=== PATIENT | female | born 1995 | race Caucasian/White ===

== ENCOUNTER 2024-05-06 09:40 | Inpatient (IN) | payer OTHER ==
--- NOTE | 2024-05-06 10:12 | ED ---
Abdominal Pain HPI - General Chief Complaint: Abdominal Pain Stated Complaint: Abd pain Time Seen by Provider: 05/06/24 09:53 Source: patient, RN notes reviewed Mode of arrival: ambulatory Limitations: no limitations - History of Present Illness Initial Comments: This is a 28-year-old female presenting with sharp, constant lower abdominal pain (12/04) x 2 days. Patient states pain has been a monthly recurrence that is usually worse around the time of her period. Patient states pain began shortly after the end of her last period on 05/01/2024. Patient endorses chills, nausea and vomiting associated with the pain. Denies abnormal vaginal bleeding or discharge. Endorses receiving an IUD in June, expressing concern that there may be a correlation between the pain and IUD. Patient denies fever, chest pain, dyspnea, hematemesis, constipation, diarrhea, urinary symptoms. Denies history of ovarian cyst. MD Complaint: abdominal pain Onset/Timin -: days(s) - Related Data Home Medications Medication Instructions Recorded Confirmed No Known Home Medications 05/06/24 05/06/24 Allergies Allergy/AdvReac Type Severity Reaction Status Date / Time No Known Allergies Allergy Verified 05/06/24 13:16 Review of Systems ROS Statement: Those systems with pertinent positive or pertinent negative responses have been documented in the HPI. ROS Other: All systems not noted in ROS Statement are negative. Past Medical History Additional Past Medical History / Comment(s): IUD, History of Any Multi-Drug Resistant Organisms: None Reported Past Surgical History: Tonsillectomy Past Psychological History: No Psychological Hx Reported Smoking Status: Former smoker Past Alcohol Use History: None Reported Past Drug Use History: Marijuana General Exam Limitations: no limitations General appearance: alert, in no apparent distress Head exam: Present: atraumatic, normocephalic, normal inspection Eye exam: Present: normal appearance, PERRL, EOMI. Absent: scleral icterus, conjunctival injection, periorbital swelling ENT exam: Present: normal exam, mucous membranes moist Neck exam: Present: normal inspection. Absent: tenderness, meningismus, lymphadenopathy Respiratory exam: Present: normal lung sounds bilaterally. Absent: respiratory distress, wheezes, rales, rhonchi, stridor Cardiovascular Exam: Present: regular rate, normal rhythm, normal heart sounds. Absent: systolic murmur, diastolic murmur, rubs, gallop, clicks GI/Abdominal exam: Present: soft, tenderness (Bilateral lower abdominal te nderness without guarding or rigidity, especially on left side), normal bowel sounds. Absent: distended, guarding, rebound, rigid Extremities exam: Present: normal inspection, full ROM, normal capillary refill, other (Bilateral posterior tibialis pulse +2). Absent: tenderness, pedal edema, joint swelling, calf tenderness Back exam: Present: normal inspection Neurological exam: Present: alert, oriented X3, CN II-XII intact Psychiatric exam: Present: normal affect, normal mood Skin exam: Present: warm, dry, intact, normal color. Absent: rash Course Vital Signs 05/06/24 09:45 Temperature 97.8 F Pulse Rate 95 Respiratory 18 Rate Blood Pressure 138/90 O2 Sat by Pulse 100 Oximetry Medical Decision Making - Medical Decision Making Was pt. sent in by a medical professional or institution (Dr. PA, IMPLEMENT MECHANIC, urgent care, hospital, or longterm...) When possible be specific @ -No Did you speak to anyone other than the patient for history (EMS, parent, family, police, friend...)? What history was obtained from this source @ -No Did you review nursing and triage notes (agree or disagree)? Why? @ -I reviewed and agree with nursing and triage notes Were old charts reviewed (outside hosp., previous admission, EMS record, old EKG, old radiological studies, urgent care reports/EKG's, longterm records)? Report findings @ -No old charts were reviewed Differential Diagnosis (chest pain, altered mental status, abdominal pain women, abdominal pain men, vaginal bleeding, weakness, fever, dyspnea, syncope, headache, dizziness, GI bleed, back pain, seizure, CVA, palpatations, mental health, musculoskeletal)? @ -Differential Abdominal Pain Women: Appendicitis, Cholecystitis, diverticulosis, ischemic bowel, pancreatitis, hepatitis, UTI, gastroenteritis, AAA, incarcerated hernia, bowel obstruction, constipation, inflammatory bowel, hepatitis, peptic ulcer disease, splenic infarction, perforated viscus, vulvitis, ovarian torsion, PID, kidney stone, placenta abruption, this is not meant to be an all-inclusive list EKG interpreted by me (3pts min.). @ -Not done X-rays interpreted by me (1pt min.). @ -None done CT interpreted by me (1pt min.). @ -Abdomen/pelvic CT shows acute perforated sigmoid diverticulitis with several foci of pneumoperitoneum and small amount of free fluid in the pelvis with no evidence of abscess. U/S interpreted by me (1pt. min.). @ -None done What testing was considered but not performed or refused? (CT, X-rays, U/S, labs)? Why? @ -None What meds were considered but not given or refused? Why? @ -None Did you discuss the management of the patient with other professionals (professionals i.e. DrJaswant, PA, IMPLEMENT MECHANIC, lab, RT, psych nurse, social media marketer, fundraising sale representative, teacher, job placement officer, case specialist)? Give summary @ -Spoke to Dr. Domínguez from surgery who refused admission to surgery. Dr. Domínguez advised additional IV fluid and placing patient n.p.o. Was smoking cessation discussed for >3mins.? @ -No Was critical care preformed (if so, how long)? @ -No Were there social determinants of health that impacted care today? How? (Homelessness, low income, unemployed, alcoholism, drug addiction, transportation, low edu. Level, literacy, decrease access to med. care, fdc, rehab)? @ -No Was there de-escalation of care discussed even if they declined (Discuss DNR or withdrawal of care, Hospice)? DNR status @ -No What co-morbidities impacted this encounter? (DM, HTN, Smoking, COPD, CAD, Cancer, CVA, ARF, Chemo, Hep., AIDS, mental health diagnosis, sleep apnea, morbid obesity)? @ -None Was patient admitted / discharged? Hospital course, mention meds given and route, prescriptions, significant lab abnormalities, going to OR and other pertinent info. @ -. Lab work shows leukocytosis of 26.3 with left shift. Lactic acid of 3.0. UA showed concentrated urine with blood. Abdomen/pelvic CT shows acute perforated sigmoid diverticulitis with several foci of pneumoperitoneum and small amount of free fluid in the pelvis with no evidence of abscess. Patient initially given IV Toradol, Zofran and Dilaudid as well as normal saline. IV Zosyn given after discovery of perforation with additional fluid and patient placed on n.p.o. Spoke to Dr. Domínguez from surgery who refused admission to surgery. Undiagnosed new problem with uncertain prognosis? @ -Sigmoid diverticulitis with perforation Drug Therapy requiring intensive monitoring for toxicity (Heparin, Nitro, Insulin, Cardizem)? @ -No Were any procedures done? @ -No Diagnosis/symptom? @ -Sigmoid diverticulitis with perforation Acute, or Chronic, or Acute on Chronic? @ -Acute Uncomplicated (without systemic symptoms) or Complicated (systemic symptoms)? @ -Complicated Side effects of treatment? @ -No Exacerbation, Progression, or Severe Exacerbation? @ -No Poses a threat to life or bodily function? How? (Chest pain, [place], [place], pneumonia, PE, COPD, DKA, ARF, appy, cholecystitis, CVA, Diverticulitis, Homicidal, Suicidal, threat to staff... and all critical care pts) @ -Diverticulitis with perforation, potential for sepsis - Lab Data Result diagrams: 05/06/24 10:38 05/06/24 10:38 Lab Results 05/06/24 05/06/24 05/06/24 Range/Units 10:38 10:38 10:38 WBC 26.3 H (3.8-10.6) k/uL RBC 4.71 (3.80-5.40) m/uL Hgb 13.5 (11.4-16.0) gm/dL Hct 40.0 (34.0-46.0) % MCV 85.1 (80.0-100.0) fL MCH 28.7 (25.0-35.0) pg MCHC 33.7 (31.0-37.0) g/dL RDW 12.6 (11.5-15.5) % Plt Count 407 (150-450) k/uL MPV 6.8 Neutrophils % 89 % Lymphocytes % 7 % Monocytes % 3 % Eosinophils % 0 % Basophils % 0 % Neutrophils # 23.4 H (1.3-7.7) k/uL Lymphocytes # 1.9 (1.0-4.8) k/uL Monocytes # 0.7 (0-1.0) k/uL Eosinophils # 0.0 (0-0.7) k/uL Basophils # 0.0 (0-0.2) k/uL Sodium 137 (137-145) mmol/L Potassium 3.8 (3.5-5.1) mmol/L Chloride 105 (98-107) mmol/L Carbon Dioxide 19 L (22-30) mmol/L Anion Gap 13 mmol/L BUN 8 (7-17) mg/dL Creatinine 0.74 (0.52-1.04) mg/dL Est GFR (CKD-EPI)AfAm >90 (>60 ml/min/1.73 sqM) Est GFR (CKD-EPI)NonAf >90 (>60 ml/min/1.73 sqM) Glucose 122 H (74-99) mg/dL Lactic Ac Sepsis Rflx Plasma Lactic Acid Mal 3.0 H* (0.7-2.0) mmol/L Calcium 9.4 (8.4-10.2) mg/dL Total Bilirubin 1.2 (0.2-1.3) mg/dL AST 18 (14-36) U/L ALT 19 (4-34) U/L Alkaline Phosphatase 89 (38-126) U/L Total Protein 7.9 (6.3-8.2) g/dL Albumin 4.7 (3.5-5.0) g/dL Amylase 36 (30-110) U/L Lipase 30 (23-300) U/L Urine Color Urine Appearance (Clear) Urine pH (5.0-8.0) Ur Specific [place] (1.001-1.035) Urine Protein (Negative) Urine Glucose (UA) (Negative) Urine Ketones (Negative) Urine Blood (Negative) Urine Nitrite (Negative) Urine Bilirubin (Negative) Urine Urobilinogen (<2.0) mg/dL Ur Leukocyte Esterase (Negative) Urine RBC (0-5) /hpf Urine WBC (0-5) /hpf Ur Squamous Epith Cells (0-4) /hpf Hyaline Casts (0-2) /lpf Urine Mucus (None) /hpf Urine HCG, Qual (Not Detectd) 05/06/24 05/06/24 05/06/24 Range/Units 10:56 10:56 11:06 WBC (3.8-10.6) k/uL RBC (3.80-5.40) m/uL Hgb (11.4-16.0) gm/dL Hct (34.0-46.0) % MCV (80.0-100.0) fL MCH (25.0-35.0) pg MCHC (31.0-37.0) g/dL RDW (11.5-15.5) % Plt Count (150-450) k/uL MPV Neutrophils % % Lymphocytes % % Monocytes % % Eosinophils % % Basophils % % Neutrophils # (1.3-7.7) k/uL Lymphocytes # (1.0-4.8) k/uL Monocytes # (0-1.0) k/uL Eosinophils # (0-0.7) k/uL Basophils # (0-0.2) k/uL Sodium (137-145) mmol/L Potassium (3.5-5.1) mmol/L Chloride (98-107) mmol/L Carbon Dioxide (22-30) mmol/L Anion Gap mmol/L BUN (7-17) mg/dL Creatinine (0.52-1.04) mg/dL Est GFR (CKD-EPI)AfAm (>60 ml/min/1.73 sqM) Est GFR (CKD-EPI)NonAf (>60 ml/min/1.73 sqM) Glucose (74-99) mg/dL Lactic Ac Sepsis Rflx Y Plasma Lactic Acid Mal (0.7-2.0) mmol/L Calcium (8.4-10.2) mg/dL Total Bilirubin (0.2-1.3) mg/dL AST (14-36) U/L ALT (4-34) U/L Alkaline Phosphatase (38-126) U/L Total Protein (6.3-8.2) g/dL Albumin (3.5-5.0) g/dL Amylase (30-110) U/L Lipase (23-300) U/L Urine Color Yellow Urine Appearance Cloudy H (Clear) Urine pH 6.0 (5.0-8.0) Ur Specific [place] 1.039 H (1.001-1.035) Urine Protein 1+ H (Negative) Urine Glucose (UA) Negative (Negative) Urine Ketones 2+ H (Negative) Urine Blood Moderate H (Negative) Urine Nitrite Negative (Negative) Urine Bilirubin Negative (Negative) Urine Urobilinogen <2.0 (<2.0) mg/dL Ur Leukocyte Esterase Negative (Negative) Urine RBC 28 H (0-5) /hpf Urine WBC 3 (0-5) /hpf Ur Squamous Epith Cells 1 (0-4) /hpf Hyaline Casts 5 H (0-2) /lpf Urine Mucus Many H (None) /hpf Urine HCG, Qual Not Detected (Not Detectd) Disposition Clinical Impression: Perforation of sigmoid colon due to diverticulitis Disposition: ADMITTED IP TO THIS [facility] Condition: Stable Is patient prescribed a controlled substance at d/c from ED?: No Referrals: Nonstaff,Physician [Primary Care Provider] - 1-2 days Time of Disposition: 13:10 Decision Date: 05/06/24 Decision Time: 13:10
[2024-05-06 10:43] LABS: Basophils % (A) 0 %; Eosinophils % (A) 0 %; HGB 13.5 gm/dL (11.4-16.0); Lymphocytes # (A) 1.9 k/uL (1.0-4.8); Lymphocytes % (A) 7 %; MCH 28.7 pg (25.0-35.0); MCHC 33.7 g/dL (31.0-37.0); MCV 85.1 fL (80.0-100.0); Mean Platelet Volume 6.8; Monocytes # (A) 0.7 k/uL (0-1.0); Monocytes % (A) 3 %; Neutrophils # (A) 23.4 k/uL (1.3-7.7); Neutrophils % (A) 89 %; Platelet Count 407 k/uL (150-450); RBC 4.71 m/uL (3.80-5.40); RDW 12.6 % (11.5-15.5); WBC 26.3 k/uL (3.8-10.6)
[2024-05-06 10:53] LABS: ALT 19 U/L (4-34); AST 18 U/L (14-36); African American GFR (CKD) >90 (>60 ml/min/1.73 sqM); Albumin 4.7 g/dL (3.5-5.0); Alkaline Phosphatase 89 U/L (38-126); Amylase 36 U/L (30-110); Anion Gap 13 mmol/L; Blood Urea Nitrogen 8 mg/dL (7-17); Calcium 9.4 mg/dL (8.4-10.2); Carbon Dioxide 19 mmol/L (22-30); Chloride 105 mmol/L (98-107); Glucose 122 mg/dL (74-99); Lipase 30 U/L (23-300); Non-African American GFR(CKD) >90 (>60 ml/min/1.73 sqM); Potassium 3.8 mmol/L (3.5-5.1); Sodium 137 mmol/L (137-145); Total Bilirubin 1.2 mg/dL (0.2-1.3); Total Protein 7.9 g/dL (6.3-8.2)
[2024-05-06 11:21] LABS: Appearance,Urine Cloudy (Clear); Bilirubin,Urine Negative (Negative); Blood,Urine Moderate (Negative); Color,Urine Yellow; Glucose,Urine (UA) Negative (Negative); Hyaline Casts,Urine 5 /lpf (0-2); Ketones,Urine 2+ (Negative); Leukocyte Esterase,Urine Negative (Negative); Mucus,Urine Many /hpf; Nitrite,Urine Negative (Negative); Protein,Urine 1+ (Negative); RBC,Urine 28 /hpf (0-5); Specific Gravity,Urine 1.039 (1.001-1.035); Squamous Epithelial Cell,Urine 1 /hpf (0-4); Urobilinogen,Urine <2.0 mg/dL (<2.0); WBC,Urine 3 /hpf (0-5)
[2024-05-06] MEDS: KETOROLAC 15 MG/ML 1 ML VIAL IVP STA (11:35)
[2024-05-06] MEDS: ONDANSETRON 4 MG/2 ML VIAL IVP STA (11:36)
[2024-05-06] MEDS: HYDROmorphone 0.5 MG/0.5 ML SYRINGE IVP STA (11:36)
[2024-05-06] MEDS: SODIUM CHLORIDE 0.9% 1,000 ML IV STA ×2 (11:40→13:31)
--- NOTE | 2024-05-06 12:24 | CT ---
EXAMINATION TYPE: CT abdomen pelvis w con CT DLP: 1612.2 mGycm, Automated exposure control for dose reduction was used. DATE OF EXAM: 05/06/2024 12:09 PM COMPARISON: None CLINICAL INDICATION:Female, 28 years old with history of Lower abdominal pain, lactic acidosis; Lower abdominal pain, lactic acidosis TECHNIQUE: Standard CT of the abdomen and pelvis following the administration of 100 cc of Isovue 3 00 IV contrast material. Coronal and sagittal reformats were performed. FINDINGS: LOWER CHEST: Unremarkable ABDOMEN LIVER: Focal fatty infiltration adjacent to the falciform ligament in segment IVb GALLBLADDER AND BILE DUCTS: Unremarkable. PANCREAS: Unremarkable. SPLEEN: Unremarkable. ADRENAL GLANDS: Unremarkable. KIDNEYS AND URETERS: No evidence of hydronephrosis or renal calculus. The kidneys enhance symmetrical ly. Contrast is demonstrated within both collecting systems on the delayed phase. PELVIS BLADDER: Under distended, limiting evaluation. REPRODUCTIVE: IUD is present within the uterus. ABDOMEN & PELVIS STOMACH AND BOWEL: Stomach and duodenum are unremarkable. Sigmoid diverticula with some wall thickeni ng and surrounding inflammatory changes. No definitive organized fluid collection. No evidence of bow el obstruction. The appendix is within normal limits. PERITONEUM: Small amount of free fluid within the pelvis. Few foci of pneumoperitoneum identified. VASCULATURE: No evidence of aortic aneurysm. MUSCULOSKELETAL: No acute osseous abnormalities. Mild degenerative disc disease L5-S1. LYMPH NODES: No evidence for lymphadenopathy. SOFT TISSUE/ABDOMINAL WALL: Unremarkable IMPRESSION: Findings of acute perforated sigmoid diverticulitis with few foci of pneumoperitoneum. Small amount o f free fluid in the pelvis without definitive evidence for abscess. Findings called to and discussed with MARIAM Curtis at 12:21 PM on 05/06/2024. [facility], , 05/06/2024 12:21 PM
[2024-05-06] MEDS ORDERED: NALOXONE 0.4 MG/ML 1 ML VIAL IV PRN (12:40)
[2024-05-06] MEDS: PIPERACILLIN-TAZOBACTAM 3.375 GM in SODIUM CHLORIDE 0.9% 100 ML IVPB STA (13:31)
[2024-05-06] MEDS: SODIUM CHLORIDE 0.9% 1,000 ML IV SCH (13:31)
--- NOTE | 2024-05-06 13:35 | P.GSCN ---
History of Present Illness Consult date: 05/06/24 History of present illness: CHIEF COMPLAINT: Abdominal pain HISTORY OF PRESENT ILLNESS: This is a 28-year-old female presented to the hospital with complaints of left lower quadrant abdominal pain x 2 days. Patient reports that the pain came on suddenly yesterday. She had to leave work early. She was having nausea and chills. She did report having some diarrhea. Denies any blood in her stools. She initially thought that the pain was related to menstrual cramps. Patient reports that she does get have abdominal pain across the lower abdomen with cramping with her menstrual cycle. Patient reports menstrual cycle ended yesterday. Patient reports that she has never had a colonoscopy. She denies any prior history of diverticulosis. She does have a sister who had diverticulitis and required bowel resection and colostomy. Patient also reports that she thought her abdominal discomfort might be related to an IUD that she had placed in June. CAT scan abdomen pelvis had reported evidence of perforated sigmoid diverticulitis with few foci of pneumoperitoneum. Patient's white count elevated at 26. Patient denies any prior abdominal surgeries. Denies any cardiac history. PAST MEDICAL HISTORY: See below PAST SURGICAL HISTORY: See below MEDICATIONS: See below ALLERGIES: See below SOCIAL HISTORY: No illicit drug use. REVIEW OF SYSTEMS: CONSTITUTIONAL: Denies fever or chills. HEENT: Denies blurred vision, vision changes, or eye pain. Denies hemoptysis CARDIOVASCULAR: Denies chest pain or pressure. RESPIRATORY: No shortness of breath. GASTROINTESTINAL: See HPI for pertinent findings HEMATOLOGIC: Denies bleeding disorders. GENITOURINARY: Denies any blood in urine or increased urinary frequency. SKIN: Denies pruitis. Denies rash. PHYSICAL EXAM: VITAL SIGNS: Reviewed GENERAL: Well-developed in no acute distress. HEENT: No sclera icterus. Extraocular movements grossly intact. Moist buccal mucosa. Head is atraumatic, normocephalic. No nasal drainage. ABDOMEN: Soft. Nondistended. Tenderness to palpation in the left lower quadrant. No guarding. No rebound tenderness. NEUROLOGIC: Alert and oriented. Cranial nerves II through XII grossly intact. LABORATORY DATA: WBC 26.3 Hgb 13.5 platelets 407 Sodium 137 potassium 3.8 creatinine 0.74 Lactic acid elevated 3.0 IMAGING: CT scan abdomen pelvis findings of acute perforated sigmoid diverticulitis with few foci of pneumoperitoneum. Small amount of free fluid in the pelvis without definitive evidence for abscess. ASSESSMENT: 1. Acute sigmoid diverticulitis with microperforation PLAN: -Continue IV antibiotics -Keep patient n.p.o. -Continue IV fluids -Continue supportive care -Repeat CBC in a.m. -Continue to monitor Physician Sliver Lap Tender note has been reviewed by physician. Signing provider agrees with the documented findings, assessment, and plan of care. Attestation Patient seen and examined at bedside on 05/06/2024 in the emergency department in the [facility]. Presented with chief complaint of abdominal pain. Found to have acute sigmoid diverticulitis with microperforation. At this point, she is not showing any signs of peritonitis. Abdominal pain is well-controlled. Continue IV antibiotics. Keep NPO. Continue IV fluids. Case was discussed with the patient in depth. Still a possibility to require surgical intervention, however nonoperative intervention with antibiotics and bowel rest is appropriate at this time. We will continue to follow and make recommendations based on patient's clinical progress. Yosi Domínguez DO Past Medical History Additional Past Medical History / Comment(s): IUD, History of Any Multi-Drug Resistant Organisms: None Reported Past Surgical History: Tonsillectomy Past Psychological History: No Psychological Hx Reported Smoking Status: Former smoker Past Alcohol Use History: None Reported Past Drug Use History: Marijuana Medications and Allergies Home Medications Medication Instructions Recorded Confirmed Type No Known Home Medications 05/06/24 05/06/24 History Allergies Allergy/AdvReac Type Severity Reaction Status Date / Time No Known Allergies Allergy Verified 05/06/24 13:16 Surgical - Exam Osteopathic Statement: *. No significant issues noted on an osteopathic s tructural exam other than those noted in the History and Physical/Consult. Vital Signs Temp Pulse Resp BP Pulse Ox 97.8 F 95 18 138/90 100 05/06/24 09:45 05/06/24 09:45 05/06/24 09:45 05/06/24 09:45 05/06/24 09:45 Results - Labs 05/07/24 03:32 05/07/24 03:32 Abnormal Lab Results - Last 24 Hours (Table) 05/06/24 05/06/24 05/06/24 Range/Units 10:38 10:38 10:38 WBC 26.3 H (3.8-10.6) k/uL Neutrophils # 23.4 H (1.3-7.7) k/uL Carbon Dioxide 19 L (22-30) mmol/L Glucose 122 H (74-99) mg/dL Plasma Lactic Acid Mal 3.0 H* (0.7-2.0) mmol/L Urine Appearance (Clear) Ur Specific [place] (1.001-1.035) Urine Protein (Negative) Urine Ketones (Negative) Urine Blood (Negative) Urine RBC (0-5) /hpf Hyaline Casts (0-2) /lpf Urine Mucus (None) /hpf 05/06/24 Range/Units 10:56 WBC (3.8-10.6) k/uL Neutrophils # (1.3-7.7) k/uL Carbon Dioxide (22-30) mmol/L Glucose (74-99) mg/dL Plasma Lactic Acid Mal (0.7-2.0) mmol/L Urine Appearance Cloudy H (Clear) Ur Specific [place] 1.039 H (1.001-1.035) Urine Protein 1+ H (Negative) Urine Ketones 2+ H (Negative) Urine Blood Moderate H (Negative) Urine RBC 28 H (0-5) /hpf Hyaline Casts 5 H (0-2) /lpf Urine Mucus Many H (None) /hpf Diabetes panel 05/06/24 Range/Units 10:38 Sodium 137 (137-145) mmol/L Potassium 3.8 (3.5-5.1) mmol/L Chloride 105 (98-107) mmol/L Carbon Dioxide 19 L (22-30) mmol/L BUN 8 (7-17) mg/dL Creatinine 0.74 (0.52-1.04) mg/dL Glucose 122 H (74-99) mg/dL Calcium 9.4 (8.4-10.2) mg/dL AST 18 (14-36) U/L ALT 19 (4-34) U/L Alkaline Phosphatase 89 (38-126) U/L Total Protein 7.9 (6.3-8.2) g/dL Albumin 4.7 (3.5-5.0) g/dL Calcium panel 05/06/24 Range/Units 10:38 Calcium 9.4 (8.4-10.2) mg/dL Albumin 4.7 (3.5-5.0) g/dL Pituitary panel 05/06/24 Range/Units 10:38 Sodium 137 (137-145) mmol/L Potassium 3.8 (3.5-5.1) mmol/L Chloride 105 (98-107) mmol/L Carbon Dioxide 19 L (22-30) mmol/L BUN 8 (7-17) mg/dL Creatinine 0.74 (0.52-1.04) mg/dL Glucose 122 H (74-99) mg/dL Calcium 9.4 (8.4-10.2) mg/dL Adrenal panel 05/06/24 Range/Units 10:38 Sodium 137 (137-145) mmol/L Potassium 3.8 (3.5-5.1) mmol/L Chloride 105 (98-107) mmol/L Carbon Dioxide 19 L (22-30) mmol/L BUN 8 (7-17) mg/dL Creatinine 0.74 (0.52-1.04) mg/dL Glucose 122 H (74-99) mg/dL Calcium 9.4 (8.4-10.2) mg/dL Total Bilirubin 1.2 (0.2-1.3) mg/dL AST 18 (14-36) U/L ALT 19 (4-34) U/L Alkaline Phosphatase 89 (38-126) U/L Total Protein 7.9 (6.3-8.2) g/dL Albumin 4.7 (3.5-5.0) g/dL
--- NOTE | 2024-05-06 14:13 | P.HPIM ---
History of Present Illness Patient pleasant 28-year-old female came in with complaints of right as well as left lower quadrant abdominal pain for 2 days which is severe sharp in nature. Patient denied any nausea vomiting fever chills had leukocytosis of 26,300, patient had a CT of the abdomen showed severe diverticulitis with microperforations and free fluid in the abdomen without any clear evidence of peritonitis. Patient's pain is cramping in nature significantly improved after pain medications General Surgery was consulted and patient is admitted with Zosyn. REVIEW OF SYSTEMS: All other systems are negative except those mentioned in the HPI PHYSICAL EXAMINATION: GENERAL: The patient is alert and oriented x3, not in any acute distress. Well developed, well nourished. HEENT: Pupils are round and equally reacting to light. EOMI. No scleral icterus. No conjunctival pallor. Normocephalic, atraumatic. No pharyngeal erythema. No thyromegaly. CARDIOVASCULAR: S1 and S2 present. No murmurs, rubs, or gallops. PULMONARY: Chest is clear to auscultation, no wheezing or crackles. ABDOMEN: Soft, mild to moderate tenderness in bilateral lower abdominal quadrants nondistended, normoactive bowel sounds. No palpable organomegaly. MUSCULOSKELETAL: No joint swelling or deformity. EXTREMITIES: No cyanosis, clubbing, or pedal edema. NEUROLOGICAL: Gross neurological examination did not reveal any focal deficits. SKIN: No rashes. Assessment and plan -Diverticulitis with microperforations General Surgery will evaluate the patient patient will continue on IV fluids Zosyn close monitoring for any increase in abdominal pain. Patient will remain n.p.o. -Leukocytosis due to assessment #1 DVT prophylaxis: Lovenox Past Medical History Additional Past Medical History / Comment(s): IUD, History of Any Multi-Drug Resistant Organisms: None Reported Past Surgical History: Tonsillectomy Past Psychological History: No Psychological Hx Reported Smoking Status: Former smoker Past Alcohol Use History: None Reported Past Drug Use History: Marijuana Medications and Allergies Home Medications Medication Instructions Recorded Confirmed Type No Known Home Medications 05/06/24 05/06/24 History Allergies Allergy/AdvReac Type Severity Reaction Status Date / Time No Known Allergies Allergy Verified 05/06/24 13:16 Physical Exam Vitals: Vital Signs Temp Pulse Resp BP Pulse Ox 05/06/24 09:45 97.8 F 95 18 138/90 100 Intake and Output 05/05/24 05/06/24 05/06/24 22:59 06:59 14:59 Other: Weight 104.326 kg Results CBC & Chem 7: 05/06/24 10:38 05/06/24 10:38 Labs: Abnormal Lab Results - Last 24 Hours (Table) 05/06/24 05/06/24 05/06/24 Range/Units 10:38 10:38 10:38 WBC 26.3 H (3.8-10.6) k/uL Neutrophils # 23.4 H (1.3-7.7) k/uL Carbon Dioxide 19 L (22-30) mmol/L Glucose 122 H (74-99) mg/dL Plasma Lactic Acid Mal 3.0 H* (0.7-2.0) mmol/L Urine Appearance (Clear) Ur Specific [place] (1.001-1.035) Urine Protein (Negative) Urine Ketones (Negative) Urine Blood (Negative) Urine RBC (0-5) /hpf Hyaline Casts (0-2) /lpf Urine Mucus (None) /hpf 05/06/24 Range/Units 10:56 WBC (3.8-10.6) k/uL Neutrophils # (1.3-7.7) k/uL Carbon Dioxide (22-30) mmol/L Glucose (74-99) mg/dL Plasma Lactic Acid Mal (0.7-2.0) mmol/L Urine Appearance Cloudy H (Clear) Ur Specific [place] 1.039 H (1.001-1.035) Urine Protein 1+ H (Negative) Urine Ketones 2+ H (Negative) Urine Blood Moderate H (Negative) Urine RBC 28 H (0-5) /hpf Hyaline Casts 5 H (0-2) /lpf Urine Mucus Many H (None) /hpf
[2024-05-06] MEDS: HYDROmorphone 0.5 MG/0.5 ML SYRINGE IVP PRN (16:21)
[2024-05-06] MEDS: ONDANSETRON 4 MG/2 ML VIAL IVP PRN (16:21)
[2024-05-06] MEDS: KETOROLAC 15 MG/ML 1 ML VIAL IVP SCH (19:16)
[2024-05-06] MEDS: PIPERACILLIN-TAZOBACTAM 3.375 GM in SODIUM CHLORIDE 0.9% 100 ML IVPB SCH (19:41)
[2024-05-06] MEDS: FAMOTIDINE 20 MG TAB PO SCH (22:15)
[2024-05-06] MEDS: ACETAMINOPHEN SUPPOSITORY 650 MG SUPP RECTAL PRN (23:36)
[2024-05-07 03:44] LABS: Basophils % (A) 0 %; Eosinophils % (A) 0 %; HCT 34.7 % (34.0-46.0); HGB 11.6 gm/dL (11.4-16.0); Lymphocytes # (A) 0.8 k/uL (1.0-4.8); Lymphocytes % (A) 4 %; MCH 29.1 pg (25.0-35.0); MCHC 33.4 g/dL (31.0-37.0); Mean Platelet Volume 7.1; Monocytes # (A) 0.7 k/uL (0-1.0); Monocytes % (A) 3 %; Neutrophils # (A) 18.4 k/uL (1.3-7.7); Neutrophils % (A) 92 %; Platelet Count 254 k/uL (150-450); RBC 3.99 m/uL (3.80-5.40); RDW 12.7 % (11.5-15.5); WBC 20.1 k/uL (3.8-10.6)
[2024-05-07 04:02] LABS: African American GFR (CKD) >90 (>60 ml/min/1.73 sqM); Anion Gap 6 mmol/L; Blood Urea Nitrogen 8 mg/dL (7-17); Carbon Dioxide 18 mmol/L (22-30); Chloride 113 mmol/L (98-107); Glucose 109 mg/dL (74-99); Magnesium 1.7 mg/dL (1.6-2.3); Non-African American GFR(CKD) >90 (>60 ml/min/1.73 sqM); Potassium 3.5 mmol/L (3.5-5.1); Sodium 137 mmol/L (137-145)
[2024-05-07] MEDS: ENOXAPARIN 40 MG/0.4 ML SYRINGE SQ SCH (08:00)
--- NOTE | 2024-05-07 11:16 | P.PN ---
Subjective Progress Note Date: 05/07/24 SURGICAL PROGRESS NOTE CHIEF COMPLAINT: Abdominal pain HISTORY OF PRESENT ILLNESS: Patient mated with diverticulitis with microperforation. She continues to have left lower quadrant abdominal pain. She does report an increase in pain when he gets close to pain medications being due. She does report the pain is moving across the lower abdomen. She does have pain with movement. She is rating her pain about a 8 out of 10. She is having fevers. Tmax 102.5. She has been mildly tachycardic. WBC is down from 26.3-20 Hgb 11.6 lactic acid 1.1 PHYSICAL EXAM: VITAL SIGNS: Reviewed. GENERAL: Well-developed in no acute distress. ABDOMEN: Soft. Nondistended. Tenderness palpation left lower quadrant and across the lower abdomen. No guarding. No significant tenderness with percussion of abdomen. No signs of peritonitis NEUROLOGIC: Alert and oriented. Cranial nerves II through XII grossly intact. ASSESSMENT: 1. Acute sigmoid diverticulitis with microperforation PLAN: -Continue to monitor closely. Patient may require surgical intervention -Keep patient n.p.o. -Continue IV antibiotics -Continue IV fluids -Continue pain management -Continue to monitor WBC Physician Dobie Man note has been reviewed by physician. Signing provider agrees with the documented findings, assessment, and plan of care. Attestation Patient evaluated at bedside multiple times throughout the day as described above. Initially, patient did have continued lower abdominal pain, however no significant change from admission. She did state some worsening throughout the day but then improvement after change in pain medication. Leukocytosis decreasing. Patient with febrile episode and tachycardia. I did have a long discussion with the patient about her current clinical status. She appears to have bearable abdominal pain and is not showing signs of peritonitis on clinical exam. However with febrile episode and some tachycardia, I am concerned that patient may be developing worsening of her infection. With improvement of leukocytosis slightly, antibiotics appear to be somewhat effective. Operative intervention would require and ostomy creation and at patient's age, this will be a significant detriment to her every day activity and lifestyle. I did offer her both surgical intervention and continued nonoperative intervention as she is a candidate for both. She has opted for continued nonoperative intervention and is aware that she may require surgery should she not show signs of clinical improvement. Yosi Domínguez, DO Objective - Vital Signs Vital signs: Vital Signs Temp 100.6 F H 12/11/24 07:25 Pulse 107 H 05/07/24 07:25 Resp 16 05/07/24 07:25 BP 122/77 05/07/24 07:25 Pulse Ox 97 05/07/24 07:25 FiO2 Intake & Output 05/06/24 05/07/24 05/07/24 18:59 06:59 18:59 Weight 104.326 kg 104.326 kg - Labs CBC & Chem 7: 05/07/24 03:32 05/07/24 03:32 Labs: Abnormal Lab Results - Last 24 Hours (Table) 05/06/24 05/07/24 05/07/24 Range/Units 10:56 03:32 03:32 WBC 20.1 H (3.8-10.6) k/uL Neutrophils # 18.4 H (1.3-7.7) k/uL Lymphocytes # 0.8 L (1.0-4.8) k/uL Chloride 113 H (98-107) mmol/L Carbon Dioxide 18 L (22-30) mmol/L Glucose 109 H (74-99) mg/dL Calcium 8.0 L (8.4-10.2) mg/dL Urine Appearance Cloudy H (Clear) Ur Specific [place] 1.039 H (1.001-1.035) Urine Protein 1+ H (Negative) Urine Ketones 2+ H (Negative) Urine Blood Moderate H (Negative) Urine RBC 28 H (0-5) /hpf Hyaline Casts 5 H (0-2) /lpf Urine Mucus Many H (None) /hpf
[2024-05-07] MEDS: ACETAMINOPHEN IV (For NPO) 1,000 MG in EMPTY BAG 1 BAG IVPB SCH (13:16)
[2024-05-07] MEDS: ALPRAZolam 0.25 MG TAB PO PRN (14:56)
[2024-05-07] MEDS: HYDROmorphone 1 MG/ML 1 ML SYRINGE IVP PRN (15:44)
--- NOTE | 2024-05-07 21:04 | P.PN ---
Subjective Progress Note Date: 05/07/24 Patient pleasant 28-year-old female came in with complaints of right as well as left lower quadrant abdominal pain for 2 days which is severe sharp in nature. Patient denied any nausea vomiting fever chills had leukocytosis of 26,300, patient had a CT of the abdomen showed severe diverticulitis with micro perforations and free fluid in the abdomen without any clear evidence of peritonitis. Patient's pain is cramping in nature significantly improved after pain medications General Surgery was consulted and patient is admitted with Zosyn. 05/07/2024 Patient eval today in follow-up in the medical floor. He continues to report significant left lower quadrant abdominal pain which is now radiating over to the right side and up to the right anterior quadrant. She is having some nausea associated with this and feels like she is short of breath and not wanting to take a deep breath at this time secondary to the pain. Pain medications to be adjusted by general surgery will also add a low-dose of Xanax as patient does appear quite anxious today. Her white blood cell count remains elevated at 20.1 , renal function and BUN of 8 and a creatinine of 0.70. Magnesium of 1.7. Patient has continued to have elevated temps up to 102.5 overnight she is also mildly tachycardic with a heart rate of 107. She continues on IV Zosyn remains NPO. Review of Systems Constitutional: Denied any fatigue denied any fever. Cardio vascular: denied any chest pain, palpitations Gastrointestinal: Reports abdominal pain, nausea no vomiting or diarrhea Pulmonary: Denied any shortness of breath cough Neurologic denied any new focal deficits All inpatient medications were reviewed and appropriate changes in these medications as dictated in the interval history and assessment and plan. PHYSICAL EXAMINATION: GENERAL: The patient is alert and oriented x3, not in any acute distress. Well developed, well nourished. HEENT: Pupils are round and equally reacting to light. EOMI. No scleral icterus. No conjunctival pallor. Normocephalic, atraumatic. No pharyngeal erythema. No thyromegaly. CARDIOVASCULAR: S1 and S2 present. No murmurs, rubs, or gallops. PULMONARY: Chest is clear to auscultation, no wheezing or crackles. ABDOMEN: Soft, mild to moderate tenderness in bilateral lower abdominal quadrants nondistended, normoactive bowel sounds. No palpable organomegaly. MUSCULOSKELETAL: No joint swelling or deformity. EXTREMITIES: No cyanosis, clubbing, or pedal edema. NEUROLOGICAL: Gross neurological examination did not reveal any focal deficits. SKIN: No rashes. Assessment and plan -Diverticulitis with microperforations General Surgery will evaluate the patient patient will continue on IV fluids Zosyn close monitoring for any increase in abdominal pain. Patient will remain n.p.o. -Leukocytosis due to assessment #1 -Sepsis with tachycardia continue IV fluids at 125 mL/h normal saline -Anxiety will add a low-dose of Xanax DVT prophylaxis: Lovenox The impression and plan of care has been dictated by Mag Bailey Nurse Practitioner as directed. Dr. Jay MD I have performed a history and physical examination and medical decision making of this patient, discussed the same with the dictator, and agree with the dictators assessment and plan as written, documented as a scribe. Based on total visit time, I have performed more than 50% of this visit. Objective - Vital Signs Vital signs: Vital Signs Temp 100.6 F H 05/07/24 07:25 Pulse 107 H 05/07/24 07:25 Resp 16 05/07/24 07:25 BP 122/77 05/07/24 07:25 Pulse Ox 97 05/07/24 07:25 FiO2 Intake & Output 05/06/24 05/07/24 05/07/24 18:59 06:59 18:59 Weight 104.326 kg 104.326 kg - Labs CBC & Chem 7: 05/07/24 03:32 05/07/24 03:32 Labs: Abnormal Lab Results - Last 24 Hours (Table) 05/07/24 05/07/24 Range/Units 03:32 03:32 WBC 20.1 H (3.8-10.6) k/uL Neutrophils # 18.4 H (1.3-7.7) k/uL Lymphocytes # 0.8 L (1.0-4.8) k/uL Chloride 113 H (98-107) mmol/L Carbon Dioxide 18 L (22-30) mmol/L Glucose 109 H (74-99) mg/dL Calcium 8.0 L (8.4-10.2) mg/dL Assessment and Plan Time with Patient: Less than 30
[2024-05-07] MEDS: FAMOTIDINE 20 MG/2 ML VIAL IV SCH (22:24)
[2024-05-08 04:56] LABS: Basophils % (A) 0 %; Eosinophils % (A) 0 %; HGB 11.2 gm/dL (11.4-16.0); Lymphocytes # (A) 0.5 k/uL (1.0-4.8); Lymphocytes % (A) 3 %; MCH 28.2 pg (25.0-35.0); MCHC 31.9 g/dL (31.0-37.0); MCV 88.4 fL (80.0-100.0); Monocytes # (A) 0.4 k/uL (0-1.0); Monocytes % (A) 3 %; Neutrophils # (A) 14.6 k/uL (1.3-7.7); Neutrophils % (A) 93 %; Platelet Count 264 k/uL (150-450); RBC 3.96 m/uL (3.80-5.40); RDW 12.9 % (11.5-15.5); WBC 15.7 k/uL (3.8-10.6)
[2024-05-08 04:57] LABS: African American GFR (CKD) >90 (>60 ml/min/1.73 sqM); Anion Gap 5 mmol/L; Blood Urea Nitrogen 12 mg/dL (7-17); Calcium 8.4 mg/dL (8.4-10.2); Carbon Dioxide 18 mmol/L (22-30); Chloride 116 mmol/L (98-107); Glucose 94 mg/dL (74-99); Non-African American GFR(CKD) >90 (>60 ml/min/1.73 sqM); Potassium 3.4 mmol/L (3.5-5.1); Sodium 139 mmol/L (137-145)
[2024-05-08] MEDS ORDERED: ACETAMINOPHEN IV (For NPO) 1,000 MG in EMPTY BAG 1 BAG IVPB SCH (09:00)
[2024-05-08] MEDS: POTASSIUM CHLORIDE ER 20 MEQ TAB.ER PO STA (10:32)
[2024-05-08] MEDS: METOCLOPRAMIDE 5 MG/ML 2 ML VIAL IVP PRN (11:11)
[2024-05-08] MEDS: ACETAMINOPHEN IV (For NPO) 1,000 MG in EMPTY BAG 1 BAG IVPB SCH (11:24)
--- NOTE | 2024-05-08 12:29 | P.PN ---
Subjective Progress Note Date: 05/08/24 SURGICAL PROGRESS NOTE CHIEF COMPLAINT: Abdominal pain HISTORY OF PRESENT ILLNESS: Patient admitted with diverticulitis with microperforation. Patient reports the pain is more in the left lower quadrant across the lower abdomen. She does still have some discomfort in the right side of the abdomen. She reports her pain is about a 6 out of 10. Pain is better controlled with the adjustment of pain medications yesterday. She is complaining of nausea. Afebrile. She remains mildly tachycardic heart rate 104. WBC is down from 20-15.7 potassium 3.4 PHYSICAL EXAM: VITAL SIGNS: Reviewed. GENERAL: Well-developed in no acute distress. ABDOMEN: Soft. Nondistended. Tenderness palpation left lower quadrant and across the lower abdomen. Mild discomfort with palpation of the right side of the abdomen no guarding. No significant tenderness with percussion of abdomen. No signs of peritonitis NEUROLOGIC: Alert and oriented. Cranial nerves II through XII grossly intact. ASSESSMENT: 1. Acute sigmoid diverticulitis with microperforation PLAN: -Continue IV antibiotics -Keep patient n.p.o. -Replace potassium -Antiemetics adjusted per medicine service -Continue IV fluids -Continue pain management -Continue to monitor WBC -Continue to monitor patient closely Physician Skiver Heel Tap note has been reviewed by physician. Signing provider agrees with the documented findings, assessment, and plan of care. Objective - Vital Signs Vital signs: Vital Signs Temp 98.8 F 05/08/24 06:46 Pulse 104 H 05/08/24 06:46 Resp 18 05/08/24 10:49 BP 129/88 05/08/24 06:46 Pulse Ox 95 05/08/24 06:46 FiO2 Intake & Output 05/07/24 05/08/24 05/08/24 18:59 06:59 18:59 Intake Total 900 Balance 900 Intake: Intake, IV Titration 900 Amount Sodium Chloride 0.9% 1, 900 000 ml @ 125 mls/hr IV . Q8H [facility] Rx#:[id number] Other: Voiding Method Toilet # Voids 3 4 # Bowel Movements 0 - Labs CBC & Chem 7: 05/08/24 03:53 05/08/24 03:53 Labs: Abnormal Lab Results - Last 24 Hours (Table) 05/08/24 05/08/24 Range/Units 03:53 03:53 WBC 15.7 H (3.8-10.6) k/uL Hgb 11.2 L (11.4-16.0) gm/dL Neutrophils # 14.6 H (1.3-7.7) k/uL Lymphocytes # 0.5 L (1.0-4.8) k/uL Potassium 3.4 L (3.5-5.1) mmol/L Chloride 116 H (98-107) mmol/L Carbon Dioxide 18 L (22-30) mmol/L Microbiology - Last 24 Hours (Table) 05/06/24 13:15 Blood Culture - Preliminary Blood Assessment and Plan Assessment: 28 yo female w/ microperforation diverticulitis, physical exam demonstrates a non peritoneal exam. We will continue to give abx and npo in order to avoid surgery. Discussed at length with patient risks and benefits of surgery and she elected to continue medical management. Time with Patient: Greater than 30
[2024-05-08] MEDS: ONDANSETRON 4 MG/2 ML VIAL IVP PRN (17:32)
--- NOTE | 2024-05-08 17:38 | P.PN ---
Subjective Progress Note Date: 05/08/24 Patient pleasant 28-year-old female came in with complaints of right as well as left lower quadrant abdominal pain for 2 days which is severe sharp in nature. Patient denied any nausea vomiting fever chills had leukocytosis of 26,300, patient had a CT of the abdomen showed severe diverticulitis with mi croperforations and free fluid in the abdomen without any clear evidence of peritonitis. Patient's pain is cramping in nature significantly improved after pain medications General Surgery was consulted and patient is admitted with Zosyn. 05/07/2024 Patient eval today in follow-up in the medical floor. He continues to report significant left lower quadrant abdominal pain which is now radiating over to the right side and up to the right anterior quadrant. She is having some nausea associated with this and feels like she is short of breath and not wanting to take a deep breath at this time secondary to the pain. Pain medications to be adjusted by general surgery will also add a low-dose of Xanax as patient does appear quite anxious today. Her white blood cell count remains elevated at 2 0.1, renal function and BUN of 8 and a creatinine of 0.70. Magnesium of 1.7. Patient has continued to have elevated temps up to 102.5 overnight she is also mildly tachycardic with a heart rate of 107. She continues on IV Zosyn remains NPO. 05/08/2024 Patient is seen in follow-up today continues to report pain especially when getting up and moving around. Patient reports to having some mild shortness of breath although maintaining oxygen saturations above 95% on room air. Patient is currently n.p.o. and will continue per surgery on bowel rest and antibiotics. Recommend incentive spirometer and encouraged frequent walking and sitting out of the bed more often. Patient is afebrile and white count is improving at 15.7 from 20.1 yesterday. Sodium within normal limits at 139 with a potassium of 3.4 which is being replaced, creatinine stable at 0.64. No immediate plans for surgery at this time per surgery recommend to continue monitoring closely. Patient reports passing gas but has not had a bowel movement as of yet. Review of Systems Constitutional: Denied any fatigue denied any fever. Cardio vascular: denied any chest pain, palpitations Gastrointestinal: Reports abdominal pain, nausea no vomiting or diarrhea Pulmonary: Denied any shortness of breath cough Neurologic denied any new focal deficits All inpatient medications were reviewed and appropriate changes in these m edications as dictated in the interval history and assessment and plan. PHYSICAL EXAMINATION: GENERAL: The patient is alert and oriented x3, not in any acute distress. Well developed, well nourished. Obese HEENT: Pupils are round and equally reacting to light. EOMI. No scleral icterus. No conjunctival pallor. Normocephalic, atraumatic. No pharyngeal erythema. No thyromegaly. CARDIOVASCULAR: S1 and S2 present. No murmurs, rubs, or gallops. PULMONARY: Chest is clear to auscultation, no wheezing or crackles. ABDOMEN: Soft, mild to moderate tenderness in bilateral lower abdominal quadrants nondistended, normoactive bowel sounds. No palpable organomegaly. MUSCULOSKELETAL: No joint swelling or deformity. EXTREMITIES: No cyanosis, clubbing, or pedal edema. NEUROLOGICAL: Gross neurological examination did not reveal any focal deficits. SKIN: No rashes Assessment: -Diverticulitis with microperforations, General Surgery following with no plans for immediate surgical intervention, will continue on IV fluids and Zosyn close monitoring for any increase in abdominal pain. Patient will remain n.p.o. -Leukocytosis due to assessment #1, trending down -Sepsis with tachycardia, continue IV fluids at 125 mL/h normal saline -Anxiety, will add a low-dose of Xanax -Obesity with a BMI of 37.1 -GI prophylaxis -DVT prophylaxis: Lovenox -Full code Plan: Will continue monitor closely on bowel rest and IV antibiotics per surgery recommendations. No plans for immediate surgical intervention at this time Will follow-up with repeat labs and monitor CBC Replace electrolytes per protocol Continue n.p.o. for now with occasional mouth swabs Encouraged increase activity as tolerated with no bending over or heavy lifting at this time The impression and plan of care has been dictated by Cristina Mccartney, Nurse Practitioner as directed. Dr. Jay MD I have performed a history and physical examination and medical decision making of this patient, discussed the same with the dictator, and agree with the dictators assessment and plan as written, documented as a scribe. Based on total visit time, I have performed more than 50% of this visit. Objective - Vital Signs Vital signs: Vital Signs Temp 98.8 F 05/08/24 06:46 Pulse 104 H 05/08/24 06:46 Resp 17 05/08/24 06:46 BP 129/88 05/08/24 06:46 Pulse Ox 95 05/08/24 06:46 FiO2 Intake & Output 05/07/24 05/08/24 05/08/24 18:59 06:59 18:59 Intake Total 900 Balance 900 Intake: Intake, IV Titration 900 Amount Sodium Chloride 0.9% 1, 900 000 ml @ 125 mls/hr IV . Q8H [facility] Rx#:[id number] Other: # Voids 3 4 # Bowel Movements 0 - Labs CBC & Chem 7: 05/08/24 03:53 05/08/24 03:53 Labs: Abnormal Lab Results - Last 24 Hours (Table) 05/08/24 05/08/24 Range/Units 03:53 03:53 WBC 15.7 H (3.8-10.6) k/uL Hgb 11.2 L (11.4-16.0) gm/dL Neutrophils # 14.6 H (1.3-7.7) k/uL Lymphocytes # 0.5 L (1.0-4.8) k/uL Potassium 3.4 L (3.5-5.1) mmol/L Chloride 116 H (98-107) mmol/L Carbon Dioxide 18 L (22-30) mmol/L Microbiology - Last 24 Hours (Table) 05/06/24 13:15 Blood Culture - Preliminary Blood
[2024-05-08] MEDS: PROCHLORPERAZINE INJ 10 MG/2 ML VIAL IVP PRN (21:03)
[2024-05-09 05:58] LABS: Basophils % (A) 0 %; Eosinophils % (A) 0 %; HCT 34.5 % (34.0-46.0); Lymphocytes # (A) 1.3 k/uL (1.0-4.8); Lymphocytes % (A) 6 %; MCH 28.2 pg (25.0-35.0); MCHC 31.7 g/dL (31.0-37.0); MCV 88.8 fL (80.0-100.0); Mean Platelet Volume 7.1; Monocytes # (A) 0.8 k/uL (0-1.0); Monocytes % (A) 4 %; Neutrophils # (A) 18.1 k/uL (1.3-7.7); Neutrophils % (A) 88 %; Platelet Count 333 k/uL (150-450); RBC 3.88 m/uL (3.80-5.40); RDW 12.9 % (11.5-15.5); WBC 20.5 k/uL (3.8-10.6)
[2024-05-09 06:11] LABS: African American GFR (CKD) >90 (>60 ml/min/1.73 sqM); Anion Gap 8 mmol/L; Blood Urea Nitrogen 17 mg/dL (7-17); Calcium 8.4 mg/dL (8.4-10.2); Carbon Dioxide 16 mmol/L (22-30); Chloride 116 mmol/L (98-107); Glucose 83 mg/dL (74-99); Non-African American GFR(CKD) >90 (>60 ml/min/1.73 sqM); Potassium 3.5 mmol/L (3.5-5.1); Sodium 140 mmol/L (137-145)
--- NOTE | 2024-05-09 11:19 | P.PN ---
Subjective Progress Note Date: 05/09/24 SURGICAL PROGRESS NOTE CHIEF COMPLAINT: Abdominal pain HISTORY OF PRESENT ILLNESS: Patient admitted with diverticulitis with microperforation. Patient continues to complain of abdominal pain in the left lower quadrant across lower abdomen and into the right side of the abdomen. Patient does report that the pain is a little less. She rates the pain at a 6 out of 10. She has been able to ambulate to the bathroom. She did have a episode of vomiting yesterday. She did have a temp of 100.1 last night. Tachycardia is better. White count is up from 15-20. K 3.5 after supplement. PHYSICAL EXAM: VITAL SIGNS: Reviewed. GENERAL: Well-developed in no acute distress. ABDOMEN: Soft. Nondistended. Tenderness palpation left lower quadrant and across the lower abdomen. Mild discomfort with palpation of the right side of the abdomen. no guarding. No significant tenderness with percussion of abdomen. No signs of peritonitis NEUROLOGIC: Alert and oriented. Cranial nerves II through XII grossly intact. ASSESSMENT: 1. Acute sigmoid diverticulitis with microperforation PLAN: -Continue to monitor patient closely -Continue IV antibiotics -Keep patient n.p.o. -Continue antiemetics -Continue IV fluids -Continue pain management -Continue to monitor WBC Physician [employer] Developer note has been reviewed by physician. Signing provider agrees with the documented findings, assessment, and plan of care. Objective - Vital Signs Vital signs: Vital Signs Temp 99.5 F 05/09/24 07:23 Pulse 98 05/09/24 07:23 Resp 16 05/09/24 07:23 BP 122/80 05/09/24 07:23 Pulse Ox 96 05/09/24 07:23 FiO2 Intake & Output 05/08/24 05/09/24 05/09/24 18:59 06:59 18:59 Intake Total 0 Balance 0 Intake: Oral 0 Other: Voiding Method Toilet Toilet # Voids 2 2 - Labs CBC & Chem 7: 05/09/24 05:14 05/09/24 05:14 Labs: Abnormal Lab Results - Last 24 Hours (Table) 05/09/24 05/09/24 Range/Units 05:14 05:14 WBC 20.5 H (3.8-10.6) k/uL Hgb 11.0 L (11.4-16.0) gm/dL Neutrophils # 18.1 H (1.3-7.7) k/uL Chloride 116 H (98-107) mmol/L Carbon Dioxide 16 L (22-30) mmol/L Microbiology - Last 24 Hours (Table) 05/06/24 13:15 Blood Culture - Preliminary Blood Assessment and Plan Assessment: Discussed w/ patient regarding treatment. Patient would like to continue medical management as treatment would result in most likely a colostomy bag. We will order CT scan in am. Time with Patient: Less than 30
--- NOTE | 2024-05-09 13:53 | P.PN ---
Subjective Progress Note Date: 05/09/24 (]) Patient pleasant 28-year-old female came in with complaints of right as well as left lower quadrant abdominal pain for 2 days which is severe sharp in nature. Patient denied any nausea vomiting fever chills had leukocytosis of 26,300, patient had a CT of the abdomen showed severe diverticulitis with m icroperforations and free fluid in the abdomen without any clear evidence of peritonitis. Patient's pain is cramping in nature significantly improved after pain medications General Surgery was consulted and patient is admitted with Zosyn. 05/07/2024 Patient eval today in follow-up in the medical floor. He continues to report significant left lower quadrant abdominal pain which is now radiating over to the right side and up to the right anterior quadrant. She is having some nausea associated with this and feels like she is short of breath and not wanting to take a deep breath at this time secondary to the pain. Pain medications to be adjusted by general surgery will also add a low-dose of Xanax as patient does appear quite anxious today. Her white blood cell count remains elevated at 20.1, renal function and BUN of 8 and a creatinine of 0.70. Magnesium of 1.7. Patient has continued to have elevated temps up to 102.5 overnight she is also mildly tachycardic with a heart rate of 107. She continues on IV Zosyn remains NPO. 05/08/2024 Patient is seen in follow-up today continues to report pain especially when getting up and moving around. Patient reports to having some mild shortness of breath although maintaining oxygen saturations above 95% on room air. Patient is currently n.p.o. and will continue per surgery on bowel rest and antibiotics. Recommend incentive spirometer and encouraged frequent walking and sitting out of the bed more often. Patient is afebrile and white count is improving at 15.7 from 20.1 yesterday. Sodium within normal limits at 139 with a potassium of 3.4 which is being replaced, creatinine stable at 0.64. No immediate plans for surgery at this time per surgery recommend to continue monitoring closely. Patient reports passing gas but has not had a bowel movement as of yet. 05/09/2024 Evaluated in follow-up. She continues to report significant abdominal pain mostly in the right and left lower quadrant however more radiating up into the right upper quadrant. Her white blood cell count today remains elevated at 20. She had a temperature overnight of 100.4. She continues on IV Zosyn at this time. Did discuss with nursing and respiratory therapy to bring the patient incentive spirometer. = Continue with conservative management and no plans at this time for conservative management per general surgery. Review of Systems Constitutional: Denied any fatigue denied any fever. Cardio vascular: denied any chest pain, palpitations Gastrointestinal: Reports abdominal pain, nausea no vomiting or diarrhea Pulmonary: Denied any shortness of breath cough Neurologic: denied any new focal deficits All inpatient medications were reviewed and appropriate changes in these medications as dictated in the interval history and assessment and plan. PHYSICAL EXAMINATION: GENERAL: The patient is alert and oriented x3, not in any acute distress. Well developed, well nourished. Obese HEENT: Pupils are round and equally reacting to light. EOMI. No scleral icterus. No conjunctival pallor. Normocephalic, atraumatic. No pharyngeal erythema. No thyromegaly. CARDIOVASCULAR: S1 and S2 present. No murmurs, rubs, or gallops. PULMONARY: Chest is clear to auscultation, no wheezing or crackles. ABDOMEN: Soft, mild to moderate tenderness in bilateral lower abdominal quadrants nondistended, normoactive bowel sounds. No palpable organomegaly. MUSCULOSKELETAL: No joint swelling or deformity. EXTREMITIES: No cyanosis, clubbing, or pedal edema. NEUROLOGICAL: Gross neurological examination did not reveal any focal deficits. SKIN: No rashes Assessment: -Diverticulitis with microperforations, General Surgery following with no plans for immediate surgical intervention, will continue on IV fluids and Zosyn close monitoring for any increase in abdominal pain. Patient will remain n.p.o. -Leukocytosis due to assessment #1, trending down -Sepsis with tachycardia, continue IV fluids at 125 mL/h normal saline -Anxiety, will add a low-dose of Xanax -Obesity with a BMI of 37.1 -GI prophylaxis -DVT prophylaxis: Lovenox -Full code Plan: Will continue monitor closely on bowel rest and IV antibiotics per surgery recommendations. No plans for immediate surgical intervention at this time Will follow-up with repeat labs and monitor CBC Replace electrolytes per protocol Continue n.p.o. for now with occasional mouth swabs Encouraged increase activity as tolerated with no bending over or heavy lifting at this time The impression and plan of care has been dictated by Mag Bailey Nurse Practitioner as directed. Dr. Jay MD I have performed a history and physical examination and medical decision making of this patient, discussed the same with the dictator, and agree with the dictators assessment and plan as written, documented as a scribe. Based on total visit time, I have performed more than 50% of this visit. Objective - Vital Signs Vital signs: Vital Signs Temp 99.5 F 05/09/24 07:23 Pulse 98 05/09/24 07:23 Resp 16 05/09/24 07:23 BP 122/80 05/09/24 07:23 Pulse Ox 96 05/09/24 07:23 FiO2 Intake & Output 05/08/24 05/09/24 05/09/24 18:59 06:59 18:59 Intake Total 0 Balance 0 Intake: Oral 0 Other: Voiding Method Toilet Toilet # Voids 2 2 - Labs CBC & Chem 7: 05/09/24 05:14 05/09/24 05:14 Labs: Abnormal Lab Results - Last 24 Hours (Table) 05/09/24 05/09/24 Range/Units 05:14 05:14 WBC 20.5 H (3.8-10.6) k/uL Hgb 11.0 L (11.4-16.0) gm/dL Neutrophils # 18.1 H (1.3-7.7) k/uL Chloride 116 H (98-107) mmol/L Carbon Dioxide 16 L (22-30) mmol/L Microbiology - Last 24 Hours (Table) 05/06/24 13:15 Blood Culture - Preliminary Blood Assessment and Plan Time with Patient: Less than 30
--- NOTE | 2024-05-09 15:26 | XR ---
EXAMINATION TYPE: XR chest 2V DATE OF EXAM: 05/09/2024 3:05 PM COMPARISON: None. CLINICAL INDICATION: Female, 28 years old with history of shortness of breath, TECHNIQUE: XR chest 2V view(s) obtained. FINDINGS: There is a large pneumoperitoneum. Report was called to the patient nurse at the time of preliminary dictation. The heart size is normal. The pulmonary vasculature is normal. Although atelectasis at the right lung base. IMPRESSION: 1. Large pneumoperitoneum. Report was called to the surgeon Dr. Bowling by Dr. Everett by telephone at the time of interpretation 1522 hours 05/09/2024. 2. Mild atelectasis right lung base [facility], , 05/09/2024 3:23 PM
[2024-05-09] MEDS: IV FLUID CONTINUATION 1,000 ML IV ONE ×4 (15:59→16:14)
[2024-05-09] MEDS: LACTATED RINGERS 1,000 ML IV ONE ×2 (17:37→18:15)
[2024-05-09] MEDS: HYDROmorphone 0.5 MG/0.5 ML SYRINGE IVP STA (20:36)
[2024-05-10 03:40] LABS: Basophils % (A) 0 %; Eosinophils % (A) 0 %; HCT 33.2 % (34.0-46.0); HGB 10.7 gm/dL (11.4-16.0); Lymphocytes # (A) 0.7 k/uL (1.0-4.8); Lymphocytes % (A) 4 %; MCH 28.4 pg (25.0-35.0); MCHC 32.3 g/dL (31.0-37.0); MCV 88.2 fL (80.0-100.0); Mean Platelet Volume 7.1; Monocytes # (A) 0.7 k/uL (0-1.0); Monocytes % (A) 4 %; Neutrophils # (A) 13.8 k/uL (1.3-7.7); Neutrophils % (A) 89 %; Platelet Count 323 k/uL (150-450); RBC 3.77 m/uL (3.80-5.40); RDW 13.1 % (11.5-15.5); WBC 15.6 k/uL (3.8-10.6)
[2024-05-10 03:58] LABS: African American GFR (CKD) >90 (>60 ml/min/1.73 sqM); Anion Gap 11 mmol/L; Blood Urea Nitrogen 15 mg/dL (7-17); Calcium 7.9 mg/dL (8.4-10.2); Carbon Dioxide 17 mmol/L (22-30); Chloride 114 mmol/L (98-107); Glucose 90 mg/dL (74-99); Non-African American GFR(CKD) >90 (>60 ml/min/1.73 sqM); Potassium 3.5 mmol/L (3.5-5.1); Sodium 142 mmol/L (137-145)
[2024-05-10 11:18] LABS: African American GFR (CKD) >90 (>60 ml/min/1.73 sqM); Anion Gap 9 mmol/L; Blood Urea Nitrogen 15 mg/dL (7-17); Calcium 8.1 mg/dL (8.4-10.2); Carbon Dioxide 18 mmol/L (22-30); Chloride 115 mmol/L (98-107); Glucose 90 mg/dL (74-99); Magnesium 1.9 mg/dL (1.6-2.3); Non-African American GFR(CKD) >90 (>60 ml/min/1.73 sqM); Potassium 3.3 mmol/L (3.5-5.1); Sodium 142 mmol/L (137-145)
[2024-05-10] MEDS ORDERED: Potassium Replacement Protocol 1 EACH MISC MISCELLANE PRN (13:43)
[2024-05-10] MEDS ORDERED: POTASSIUM CHLORIDE 10 MEQ in WATER FOR INJECTION 1 100ML.BAG IVPB SCH (14:00)
[2024-05-10] MEDS: POTASSIUM CHLORIDE 10 MEQ in WATER FOR INJECTION 1 100ML.BAG IVPB SCH (15:34)
--- NOTE | 2024-05-10 16:35 | P.PN ---
Subjective Patient seen and evaluated at bedside. Patient doing well, admits to less abdominal soreness. Currently denies nausea, vomiting, fevers, chills, shortness of breath or chest pain. Objective - Vital Signs Vital signs: Vital Signs Temp 98.0 F 05/10/24 14:00 Pulse 96 05/10/24 14:00 Resp 18 05/10/24 14:00 BP 118/78 05/10/24 14:00 Pulse Ox 98 05/10/24 14:00 FiO2 Intake & Output 05/09/24 05/10/24 05/10/24 18:59 06:59 18:59 Intake Total 3300 250 Output Total 2450 390 Balance 3300 -2200 -390 Intake: IV 3300 250 Output: Gastric Drainage 1050 Drainage 90 Medial Abdomen 10 Right Abdomen 80 Urine 1150 300 Estimated Blood Loss 250 Other: Voiding Method Toilet Toilet # Voids 3 - Exam gen: nad cv rrr pul: non labored breathing abd: soft, non distended tender to palpation in the left lower quadrant, ostomy pink/patent/ not producing. - Labs CBC & Chem 7: 05/10/24 03:15 05/10/24 10:43 Labs: Abnormal Lab Results - Last 24 Hours (Table) 05/10/24 05/10/24 05/10/24 Range/Units 03:10 03:15 10:43 WBC 15.6 H (3.8-10.6) k/uL RBC 3.77 L (3.80-5.40) m/uL Hgb 10.7 L (11.4-16.0) gm/dL Hct 33.2 L (34.0-46.0) % Neutrophils # 13.8 H (1.3-7.7) k/uL Lymphocytes # 0.7 L (1.0-4.8) k/uL Potassium 3.3 L (3.5-5.1) mmol/L Chloride 114 H 115 H (98-107) mmol/L Carbon Dioxide 17 L 18 L (22-30) mmol/L Calcium 7.9 L 8.1 L (8.4-10.2) mg/dL Microbiology - Last 24 Hours (Table) 05/06/24 13:15 Blood Culture - Preliminary Blood Assessment and Plan Assessment: 28 yo female s/p exploratory laparotomy with sigmoidectomy and colostomy creation and appendectomy with drain placement -sips of water with meds -encourage ambulation -await bowel function, expect an ileus -follow pee drain output Time with Patient: Less than 30
--- NOTE | 2024-05-10 23:34 | P.PN ---
Subjective Progress Note Date: 05/10/24 Patient pleasant 28-year-old female came in with complaints of right as well as left lower quadrant abdominal pain for 2 days which is severe sharp in nature. Patient denied any nausea vomiting fever chills had leukocytosis of 26,300, patient had a CT of the abdomen showed severe diverticulitis with micro perforations and free fluid in the abdomen without any clear evidence of peritonitis. Patient's pain is cramping in nature significantly improved after pain medications General Surgery was consulted and patient is admitted with Zosyn. 05/07/2024 Patient eval today in follow-up in the medical floor. He continues to report significant left lower quadrant abdominal pain which is now radiating over to the right side and up to the right anterior quadrant. She is having some nausea associated with this and feels like she is short of breath and not wanting to take a deep breath at this time secondary to the pain. Pain medications to be adjusted by general surgery will also add a low-dose of Xanax as patient does appear quite anxious today. Her white blood cell count remains elevated at 20.1 , renal function and BUN of 8 and a creatinine of 0.70. Magnesium of 1.7. Patient has continued to have elevated temps up to 102.5 overnight she is also mildly tachycardic with a heart rate of 107. She continues on IV Zosyn remains NPO. 05/08/2024 Patient is seen in follow-up today continues to report pain especially when getting up and moving around. Patient reports to having some mild shortness of breath although maintaining oxygen saturations above 95% on room air. Patient is currently n.p.o. and will continue per surgery on bowel rest and antibiotics. Recommend incentive spirometer and encouraged frequent walking and sitting out of the bed more often. Patient is afebrile and white count is improving at 15.7 from 20.1 yesterday. Sodium within normal limits at 139 with a potassium of 3.4 which is being replaced, creatinine stable at 0.64. No immediate plans for surgery at this time per surgery recommend to continue monitoring closely. Patient reports passing gas but has not had a bowel movement as of yet. 05/09/2024 Evaluated in follow-up. She continues to report significant abdominal pain mostly in the right and left lower quadrant however more radiating up into the right upper quadrant. Her white blood cell count today remains elevated at 20. She had a temperature overnight of 100.4. She continues on IV Zosyn at this time. Did discuss with nursing and respiratory therapy to bring the patient incentive spirometer. = Continue with conservative management and no plans at this time for conservative management per general surgery. 05/10/2024 Patient evaluated today in follow up on the medical floor. Postoperative day #1 exploratory laporotomy with sigmoidectomy, and colostomy creation and also appendectomy with drain placement. Has midline woundvac. White blood cell count today 15.6. Potassium 3.3. Review of Systems Constitutional: Denied any fatigue denied any fever. Cardio vascular: denied any chest pain, palpitations Gastrointestinal: Reports abdominal pain, nausea no vomiting or diarrhea Pulmonary: Denied any shortness of breath cough Neurologic: denied any new focal deficits All inpatient medications were reviewed and appropriate changes in these medications as dictated in the interval history and assessment and plan. PHYSICAL EXAMINATION: GENERAL: The patient is alert and oriented x3, not in any acute distress. Well developed, well nourished. Obese HEENT: Pupils are round and equally reacting to light. EOMI. No scleral icterus. No conjunctival pallor. Normocephalic, atraumatic. No pharyngeal erythema. No thyromegaly. CARDIOVASCULAR: S1 and S2 present. No murmurs, rubs, or gallops. PULMONARY: Chest is clear to auscultation, no wheezing or crackles. ABDOMEN: Soft, mild tenderness, sluggish bowels. No palpable organomegaly. LLQ colostomy. Midline incision with wound vac in place. RLQ LASHA drain in place. MUSCULOSKELETAL: No joint swelling or deformity. EXTREMITIES: No cyanosis, clubbing, or pedal edema. NEUROLOGICAL: Gross neurological examination did not reveal any focal deficits. SKIN: No rashes Assessment: -Diverticulitis with microperforations postoperative day #1 exploratory lap, colostomy formation, and appendectomy. -Leukocytosis due to assessment #1, trending down -Hypokalemia -Sepsis with tachycardia, continue IV fluids at 125 mL/h normal saline -Anxiety, will add a low-dose of Xanax -Obesity with a BMI of 37.1 -GI prophylaxis -DVT prophylaxis: Lovenox -Full code Plan: Will continue monitor closely on bowel rest and IV antibiotics per surgery recommendations Will follow-up with repeat labs and monitor CBC Replace electrolytes per protocol OK for small sips of water per surgery. The impression and plan of care has been dictated by Mag Bailey, Nurse Practitioner as directed. Dr. Jay MD I have performed a history and physical examination and medical decision making of this patient, discussed the same with the dictator, and agree with the dictators assessment and plan as written, documented as a scribe. Based on total visit time, I have performed more than 50% of this visit. Objective - Vital Signs Vital signs: Vital Signs Temp 97.4 F L 05/10/24 19:52 Pulse 97 05/10/24 19:52 Resp 15 05/10/24 19:52 BP 144/83 05/10/24 19:52 Pulse Ox 99 05/10/24 19:52 FiO2 Intake & Output 05/10/24 05/10/24 05/11/24 06:59 18:59 06:59 Intake Total 250 Output Total 2450 1550 Balance -2200 -1550 Intake: IV 250 Output: Gastric Drainage 1050 800 Drainage 100 Medial Abdomen 20 Right Abdomen 80 Urine 1150 650 Estimated Blood Loss 250 Other: Voiding Method Toilet Toilet - Labs CBC & Chem 7: 05/10/24 03:15 05/10/24 10:43 Labs: Abnormal Lab Results - Last 24 Hours (Table) 05/10/24 05/10/24 05/10/24 Range/Units 03:10 03:15 10:43 WBC 15.6 H (3.8-10.6) k/uL RBC 3.77 L (3.80-5.40) m/uL Hgb 10.7 L (11.4-16.0) gm/dL Hct 33.2 L (34.0-46.0) % Neutrophils # 13.8 H (1.3-7.7) k/uL Lymphocytes # 0.7 L (1.0-4.8) k/uL Potassium 3.3 L (3.5-5.1) mmol/L Chloride 114 H 115 H (98-107) mmol/L Carbon Dioxide 17 L 18 L (22-30) mmol/L Calcium 7.9 L 8.1 L (8.4-10.2) mg/dL Microbiology - Last 24 Hours (Table) 05/06/24 13:15 Blood Culture - Preliminary Blood Assessment and Plan Time with Patient: Less than 30
[2024-05-11 10:03] LABS: BUN/Creat Ratio 24.17 Ratio (12.00-20.00); Blood Urea Nitrogen 14.5 mg/dL (9.0-27.0); Calcium 7.8 mg/dL (8.7-10.3); Carbon Dioxide 20.5 mmol/L (21.6-31.8); Chloride 113 mmol/L (96-109); Glucose 91 mg/dL (70-110); Magnesium 1.9 mg/dL (1.5-2.4); Potassium 3.7 mmol/L (3.5-5.5); Sodium 145 mmol/L (135-145)
[2024-05-11 11:54] LABS: Basophils % (A) 0 %; Eosinophils % (A) 0 %; HCT 31.9 % (34.0-46.0); HGB 10.3 gm/dL (11.4-16.0); Lymphocytes % (A) 7 %; MCH 28.5 pg (25.0-35.0); MCHC 32.3 g/dL (31.0-37.0); MCV 88.5 fL (80.0-100.0); Mean Platelet Volume 6.8; Monocytes # (A) 0.8 k/uL (0-1.0); Monocytes % (A) 6 %; Neutrophils # (A) 11.2 k/uL (1.3-7.7); Neutrophils % (A) 83 %; Platelet Count 376 k/uL (150-450); RBC 3.61 m/uL (3.80-5.40); RDW 13.5 % (11.5-15.5); WBC 13.5 k/uL (3.8-10.6)
[2024-05-11 12:06] LABS: African American GFR (CKD) >90 (>60 ml/min/1.73 sqM); Anion Gap 8 mmol/L; Blood Urea Nitrogen 16 mg/dL (7-17); Calcium 8.2 mg/dL (8.4-10.2); Carbon Dioxide 22 mmol/L (22-30); Chloride 114 mmol/L (98-107); Glucose 86 mg/dL (74-99); Non-African American GFR(CKD) >90 (>60 ml/min/1.73 sqM); Potassium 3.5 mmol/L (3.5-5.1); Sodium 144 mmol/L (137-145)
--- NOTE | 2024-05-11 12:28 | P.PN ---
Subjective patient seen and evaluated bedside. Patient doing very well admits to mild abdominal pain. Denies shortness of breath although having conversational dyspnea. Objective - Vital Signs Vital signs: Vital Signs Temp 97.3 F L 05/11/24 07:10 Pulse 85 05/11/24 07:10 Resp 20 05/11/24 09:05 BP 152/84 05/11/24 07:10 Pulse Ox 97 05/11/24 07:10 FiO2 Intake & Output 05/10/24 05/11/24 05/11/24 18:59 06:59 18:59 Output Total 1463 549 7354 Balance -1550 -600 -1700 Output: Gastric Drainage 800 1400 Drainage 100 Medial Abdomen 20 Right Abdomen 80 Urine 650 600 300 Other: Voiding Method Toilet Toilet Indwelling Catheter - Exam gen: nad cv rrr pul: non labored breathing abd: soft, non distended tender to palpation in the left lower quadrant, ostomy pink/patent/ not producing. - Labs CBC & Chem 7: 05/11/24 11:28 05/11/24 11:28 Labs: Abnormal Lab Results - Last 24 Hours (Table) 05/11/24 05/11/24 05/11/24 Range/Units 04:15 11:28 11:28 WBC 13.5 H (3.8-10.6) k/uL RBC 3.61 L (3.80-5.40) m/uL Hgb 10.3 L (11.4-16.0) gm/dL Hct 31.9 L (34.0-46.0) % Neutrophils # 11.2 H (1.3-7.7) k/uL Chloride 113 H 114 H (96-109) mmol/L Carbon Dioxide 20.5 L (21.6-31.8) mmol/L BUN/Creatinine Ratio 24.17 H (12.00-20.00) Ratio Calcium 7.8 L 8.2 L (8.7-10.3) mg/dL Microbiology - Last 24 Hours (Table) 05/09/24 14:29 Gram Stain - Preliminary Other - Other Assessment and Plan Assessment: 28 yo female s/p exploratory laparotomy with sigmoidectomy and colostomy cr eation and appendectomy with drain placement -sips of water with meds -encourage ambulation -await bowel function, expect an ileus -follow pee drain output a.m. labs reveal white count is trending down we are very happy with this. Anticipate discharge 24-48 hours after having bowel function she currently does not have any bowel function out of her ostomy. Again I do anticipate an ileus secondary to stool in her abdomen. Time with Patient: Less than 30
[2024-05-11 14:10] LABS: HCT 29.3 % (37.2-46.3); HGB 9.2 g/dL (12.0-15.0); MCH 27.8 pg (27.0-32.0); MCHC 31.4 g/dL (32.0-37.0); MCV 88.5 FL (80.0-97.0); Mean Platelet Volume 9.3 FL (9.5-12.2); NRBC Per 100 WBC 0 X 10*3/uL (0.00-0.01); Platelet Count 327 X 10*3/uL (140-440); RBC 3.31 X 10*6/uL (4.10-5.20); RDW 14.2 % (11.5-14.5); WBC 12.28 X 10*3/uL (4.50-10.00)
--- NOTE | 2024-05-11 19:18 | P.PN ---
Subjective Progress Note Date: 05/11/24 Patient pleasant 28-year-old female came in with complaints of right as well as left lower quadrant abdominal pain for 2 days which is severe sharp in nature. Patient denied any nausea vomiting fever chills had leukocytosis of 26,300, patient had a CT of the abdomen showed severe diverticulitis with micro perforations and free fluid in the abdomen without any clear evidence of peritonitis. Patient's pain is cramping in nature significantly improved after pain medications General Surgery was consulted and patient is admitted with Zosyn. 05/07/2024 Patient eval today in follow-up in the medical floor. He continues to report significant left lower quadrant abdominal pain which is now radiating over to the right side and up to the right anterior quadrant. She is having some nausea associated with this and feels like she is short of breath and not wanting to take a deep breath at this time secondary to the pain. Pain medications to be adjusted by general surgery will also add a low-dose of Xanax as patient does appear quite anxious today. Her white blood cell count remains elevated at 20.1 , renal function and BUN of 8 and a creatinine of 0.70. Magnesium of 1.7. Patient has continued to have elevated temps up to 102.5 overnight she is also mildly tachycardic with a heart rate of 107. She continues on IV Zosyn remains NPO. 05/08/2024 Patient is seen in follow-up today continues to report pain especially when getting up and moving around. Patient reports to having some mild shortness of breath although maintaining oxygen saturations above 95% on room air. Patient is currently n.p.o. and will continue per surgery on bowel rest and antibiotics. Recommend incentive spirometer and encouraged frequent walking and sitting out of the bed more often. Patient is afebrile and white count is improving at 15.7 from 20.1 yesterday. Sodium within normal limits at 139 with a potassium of 3.4 which is being replaced, creatinine stable at 0.64. No immediate plans for surgery at this time per surgery recommend to continue monitoring closely. Patient reports passing gas but has not had a bowel movement as of yet. 05/09/2024 Evaluated in follow-up. She continues to report significant abdominal pain mostly in the right and left lower quadrant however more radiating up into the right upper quadrant. Her white blood cell count today remains elevated at 20. She had a temperature overnight of 100.4. She continues on IV Zosyn at this time. Did discuss with nursing and respiratory therapy to bring the patient incentive spirometer. = Continue with conservative management and no plans at this time for conservative management per general surgery. 05/10/2024 Patient evaluated today in follow up on the medical floor. Postoperative day #1 exploratory laporotomy with sigmoidectomy, and colostomy creation and also appendectomy with drain placement. Has midline woundvac. White blood cell count today 15.6. Potassium 3.3. 05/11/2024 Patient evaluated today in follow-up in the medical floor she is postoperative day #2 exploratory laparotomy with sigmoidectomy and colostomy creation and also appendectomy. LASHA drain in place. Patient is a midline wound VAC. NG tube in p lace to low intermittent suction patient has had 2.1 L of gastric output in the last 24 hours. Indwelling Posey catheter was replaced. Surgical cultures are coming back growing E. coli. Patient remains on IV Zosyn. Review of Systems Constitutional: Denied any fatigue denied any fever. Cardio vascular: denied any chest pain, palpitations Gastrointestinal: Reports abdominal pain, nausea no vomiting or diarrhea Pulmonary: Denied any shortness of breath cough Neurologic: denied any new focal deficits All inpatient medications were reviewed and appropriate changes in these medications as dictated in the interval history and assessment and plan. PHYSICAL EXAMINATION: GENERAL: The patient is alert and oriented x3, not in any acute distress. Well developed, well nourished. Obese HEENT: Pupils are round and equally reacting to light. EOMI. No scleral icterus. No conjunctival pallor. Normocephalic, atraumatic. No pharyngeal erythema. No thyromegaly. CARDIOVASCULAR: S1 and S2 present. No murmurs, rubs, or gallops. PULMONARY: Chest is clear to auscultation, no wheezing or crackles. ABDOMEN: Soft, mild tenderness, sluggish bowels. No palpable organomegaly. LLQ colostomy. Midline incision with wound vac in place. RLQ LASHA drain in place. MUSCULOSKELETAL: No joint swelling or deformity. EXTREMITIES: No cyanosis, clubbing, or pedal edema. NEUROLOGICAL: Gross neurological examination did not reveal any focal deficits. SKIN: No rashes Assessment: -Diverticulitis with microperforations postoperative day #2 exploratory lap, sigmoid colectomy, colostomy formation, and appendectomy. -Leukocytosis due to assessment #1, trending down -Hypokalemia -Sepsis with tachycardia, continue IV fluids at 125 mL/h normal saline -Anxiety, will add a low-dose of Xanax -Obesity with a BMI of 37.1 -GI prophylaxis -DVT prophylaxis: Lovenox -Full code Plan: Will continue monitor closely on bowel rest and IV antibiotics per surgery recommendations Will follow-up with repeat labs and monitor CBC Replace electrolytes per protocol OK for small sips of water per surgery. Continue to encourage incentive spirometer 10 x an hour while awake. The impression and plan of care has been dictated by Mag Bailey Nurse Practitioner as directed. Dr. Jay MD I have performed a history and physical examination and medical decision making of this patient, discussed the same with the dictator, and agree with the dictators assessment and plan as written, documented as a scribe. Based on total visit time, I have performed more than 50% of this visit. Objective - Vital Signs Vital signs: Vital Signs Temp 97.3 F L 05/11/24 07:10 Pulse 85 05/11/24 07:10 Resp 20 05/11/24 07:10 BP 152/84 05/11/24 07:10 Pulse Ox 97 05/11/24 07:10 FiO2 Intake & Output 05/10/24 05/11/24 05/11/24 18:59 06:59 18:59 Output Total 1550 600 800 Balance -1550 -600 -800 Output: Gastric Drainage 800 800 Drainage 100 Medial Abdomen 20 Right Abdomen 80 Urine 650 600 Other: Voiding Method Toilet Toilet - Labs CBC & Chem 7: 05/11/24 11:28 05/11/24 11:28 Labs: Abnormal Lab Results - Last 24 Hours (Table) 05/10/24 Range/Units 10:43 Potassium 3.3 L (3.5-5.1) mmol/L Chloride 115 H (98-107) mmol/L Carbon Dioxide 18 L (22-30) mmol/L Calcium 8.1 L (8.4-10.2) mg/dL Microbiology - Last 24 Hours (Table) 05/09/24 14:29 Gram Stain - Preliminary Other - Other Assessment and Plan Time with Patient: Less than 30
[2024-05-12 08:43] LABS: Basophils # (A) 0.06 X 10*3/uL (0.00-0.10); Basophils % (A) 0.4 %; Eosinophils # (A) 0.03 X 10*3/uL (0.04-0.35); Eosinophils % (A) 0.2 %; HGB 9.5 g/dL (12.0-15.0); Lymphocytes # (A) 1.45 X 10*3/uL (0.90-5.00); Lymphocytes % (A) 9.2 %; MCH 28.1 pg (27.0-32.0); MCHC 31.7 g/dL (32.0-37.0); MCV 88.8 FL (80.0-97.0); Mean Platelet Volume 9.7 FL (9.5-12.2); Monocytes # (A) 1.23 X 10*3/uL (0.20-1.00); Monocytes % (A) 7.8 %; NRBC Per 100 WBC 0 X 10*3/uL (0.00-0.01); Neutrophils # (A) 12.42 X 10*3/uL (1.80-7.70); Neutrophils % (A) 78.4 %; Platelet Count 384 X 10*3/uL (140-440); RBC 3.38 X 10*6/uL (4.10-5.20); RDW 14.3 % (11.5-14.5); WBC 15.82 X 10*3/uL (4.50-10.00)
[2024-05-12 09:01] LABS: BUN/Creat Ratio 24.67 Ratio (12.00-20.00); Blood Urea Nitrogen 14.8 mg/dL (9.0-27.0); Carbon Dioxide 20.7 mmol/L (21.6-31.8); Chloride 115 mmol/L (96-109); Glucose 92 mg/dL (70-110); Potassium 3.5 mmol/L (3.5-5.5); Sodium 149 mmol/L (135-145)
[2024-05-12] MEDS: BENZOCAINE SPRAY 1 CAN MUCOUS MEM PRN (10:55)
--- NOTE | 2024-05-12 11:22 | P.PN ---
Subjective Progress Note Date: 05/12/24 SURGICAL PROGRESS NOTE CHIEF COMPLAINT: Perforated sigmoid diverticulitis HISTORY OF PRESENT ILLNESS: Postop day #3 status post exploratory laparotomy, sigmoid colectomy, appendectomy and ostomy creation. Patient had a small amount of air noted in the colostomy bag. There is serosanguineous drainage noted. LASHA drain with 5 mL serous output. Patient does have NG tube in place with 500 mL output. Drainage is brown and still thick in color. Afebrile. WBC is up from 13-15 Hgb 9.5 PHYSICAL EXAM: VITAL SIGNS: Reviewed. GENERAL: Well-developed in no acute distress. ABDOMEN: Soft. Prevena wound VAC intact. There is some shadowing in the lower area of the Prevena wound VAC. There is serosanguineous drainage in the canister. Minimal tenderness at incision site. NEUROLOGIC: Alert and oriented. Cranial nerves II through XII grossly intact. ASSESSMENT: 1. Sigmoid diverticulitis with perforation PLAN: -Continue NG tube for decompression. -Keep patient n.p.o. -HurriCaine spray added for irritation of the throat from NG tube -Continue antibiotics -Continue IV fluids. Medicine service has adjusted IV fluids to D5 with potassium -Repeat labs in a.m. -Encourage patient increase activity level -Encourage patient to use incentive spirometer -DVT prophylaxis Lovenox Physician Skeiner note has been reviewed by physician. Signing provider agrees with the documented findings, assessment, and plan of care. Attestation Patient seen and examined at bedside. Mother at bedside. Spent a significant amount of time discussing the case with the patient and patient's mother. Pain medication suggested to add oral pain control along with patient's current IV regimen. IV fluids adjusted to D5 with potassium. Continue nasogastric tube decompression. Continue n.p.o. status at this point. Continue IV antibiotics. Continue to follow leukocytosis. LASHA drain in place with minimal output. Prevena dressing evaluated and air leak fixed. Continue to await further bowel function. Posey catheter removed today. Yosi Domínguez DO Objective - Vital Signs Vital signs: Vital Signs Temp 97.5 F L 05/12/24 07:13 Pulse 67 05/12/24 07:13 Resp 17 05/12/24 07:13 BP 138/78 05/12/24 07:13 Pulse Ox 98 05/12/24 07:13 FiO2 Intake & Output 05/11/24 05/12/24 05/12/24 18:59 06:59 18:59 Intake Total 1900 Output Total 2810 400 5 Balance -2810 1500 -5 Intake: Intake, IV Titration 1900 Amount ACETAMINOPHEN IV (For NPO 200 ) 1,000 mg In Empty Bag 1 bag @ 400 mls/hr IVPB Q6HR [facility] Rx#:[id number] Piperacillin-Tazobactam 3 200 .375 gm In Sodium Chloride 0.9% 100 ml @ 25 mls/hr IVPB Q8H [facility] Rx#: [id number] Sodium Chloride 0.9% 1, 1500 000 ml @ 125 mls/hr IV . Q8H [facility] Rx#:[id number] Output: Gastric Drainage 1900 Drainage 10 5 Medial Abdomen 10 Right Abdomen 5 Urine 900 400 Other: Voiding Method Indwelling Catheter Indwelling Catheter - Labs CBC & Chem 7: 05/12/24 03:29 05/12/24 03:29 Labs: Abnormal Lab Results - Last 24 Hours (Table) 05/11/24 05/11/24 05/11/24 Range/Units 04:15 11:28 11:28 WBC 12.28 H 13.5 H (4.50-10.00) X 10*3/uL RBC 3.31 L 3.61 L (4.10-5.20) X 10*6/uL Hgb 9.2 L 10.3 L (12.0-15.0) g/dL Hct 29.3 L 31.9 L (37.2-46.3) % MCHC 31.4 L (32.0-37.0) g/dL MPV 9.3 L (9.5-12.2) FL Immature Gran # (0.00-0.04) X 10*3/uL Neutrophils # 11.2 H (1.3-7.7) k/uL Monocytes # (0.20-1.00) X 10*3/uL Eosinophils # (0.04-0.35) X 10*3/uL Sodium (135-145) mmol/L Chloride 114 H (98-107) mmol/L Carbon Dioxide (21.6-31.8) mmol/L Anion Gap (4.00-12.00) mmol/L BUN/Creatinine Ratio (12.00-20.00) Ratio Calcium 8.2 L (8.4-10.2) mg/dL 05/12/24 05/12/24 Range/Units 03:29 03:29 WBC 15.82 H (4.50-10.00) X 10*3/uL RBC 3.38 L (4.10-5.20) X 10*6/uL Hgb 9.5 L (12.0-15.0) g/dL Hct 30.0 L (37.2-46.3) % MCHC 31.7 L (32.0-37.0) g/dL MPV (9.5-12.2) FL Immature Gran # 0.63 H (0.00-0.04) X 10*3/uL Neutrophils # 12.42 H (1.3-7.7) k/uL Monocytes # 1.23 H (0.20-1.00) X 10*3/uL Eosinophils # 0.03 L (0.04-0.35) X 10*3/uL Sodium 149 H (135-145) mmol/L Chloride 115 H (98-107) mmol/L Carbon Dioxide 20.7 L (21.6-31.8) mmol/L Anion Gap 13.30 H (4.00-12.00) mmol/L BUN/Creatinine Ratio 24.67 H (12.00-20.00) Ratio Calcium 8.0 L (8.4-10.2) mg/dL Microbiology - Last 24 Hours (Table) 05/06/24 13:15 Blood Culture - Final Blood 05/09/24 14:29 Gram Stain - Preliminary Other - Other Wound Culture - Preliminary Escherichia coli
[2024-05-12] MEDS: KETOROLAC 15 MG/ML 1 ML VIAL IVP SCH (12:19)
[2024-05-12] MEDS: D5W WITH KCL 20 MEQ/L 1,000 ML IV SCH (12:31)
[2024-05-12] MEDS: LORazepam 2 MG/ML INJ IV PRN (14:55)
[2024-05-12] MEDS: HYDROcodone/APAP 10-325MG 1 EACH TAB PO PRN (16:51)
[2024-05-12] MEDS: methocarbamoL 750 MG TAB PO SCH (21:45)
--- NOTE | 2024-05-12 22:52 | P.PN ---
Subjective Progress Note Date: 05/12/24 Patient pleasant 28-year-old female came in with complaints of right as well as left lower quadrant abdominal pain for 2 days which is severe sharp in nature. Patient denied any nausea vomiting fever chills had leukocytosis of 26,300, patient had a CT of the abdomen showed severe diverticulitis with micro perforations and free fluid in the abdomen without any clear evidence of peritonitis. Patient's pain is cramping in nature significantly improved after pain medications General Surgery was consulted and patient is admitted with Zosyn. 05/07/2024 Patient eval today in follow-up in the medical floor. He continues to report significant left lower quadrant abdominal pain which is now radiating over to the right side and up to the right anterior quadrant. She is having some nausea associated with this and feels like she is short of breath and not wanting to take a deep breath at this time secondary to the pain. Pain medications to be adjusted by general surgery will also add a low-dose of Xanax as patient does appear quite anxious today. Her white blood cell count remains elevated at 20.1 , renal function and BUN of 8 and a creatinine of 0.70. Magnesium of 1.7. Patient has continued to have elevated temps up to 102.5 overnight she is also mildly tachycardic with a heart rate of 107. She continues on IV Zosyn remains NPO. 05/08/2024 Patient is seen in follow-up today continues to report pain especially when getting up and moving around. Patient reports to having some mild shortness of breath although maintaining oxygen saturations above 95% on room air. Patient is currently n.p.o. and will continue per surgery on bowel rest and antibiotics. Recommend incentive spirometer and encouraged frequent walking and sitting out of the bed more often. Patient is afebrile and white count is improving at 15.7 from 20.1 yesterday. Sodium within normal limits at 139 with a potassium of 3.4 which is being replaced, creatinine stable at 0.64. No immediate plans for surgery at this time per surgery recommend to continue monitoring closely. Patient reports passing gas but has not had a bowel movement as of yet. 05/09/2024 Evaluated in follow-up. She continues to report significant abdominal pain mostly in the right and left lower quadrant however more radiating up into the right upper quadrant. Her white blood cell count today remains elevated at 20. She had a temperature overnight of 100.4. She continues on IV Zosyn at this time. Did discuss with nursing and respiratory therapy to bring the patient incentive spirometer. = Continue with conservative management and no plans at this time for conservative management per general surgery. 05/10/2024 Patient evaluated today in follow up on the medical floor. Postoperative day #1 exploratory laporotomy with sigmoidectomy, and colostomy creation and also appendectomy with drain placement. Has midline woundvac. White blood cell count today 15.6. Potassium 3.3. 05/11/2024 Patient evaluated today in follow-up in the medical floor she is postoperative day #2 exploratory laparotomy with sigmoidectomy and colostomy creation and also appendectomy. LASHA drain in place. Patient is a midline wound VAC. NG tube in p lace to low intermittent suction patient has had 2.1 L of gastric output in the last 24 hours. Indwelling Posey catheter was replaced. Surgical cultures are coming back growing E. coli. Patient remains on IV Zosyn. 05/12/2024 Patient evaluated in follow-up of medical floor she is postoperative day #3 exploratory laparotomy with cerumenectomy and colostomy creation and also appendectomy. LASHA drain remains in place with 5 mL of output in the last 24 hours. Indwelling catheter remains in place with plans to remove today. Patient continues with NG tube in place states that she was having increased pain overnight and pain is currently rating out of 10. The IV Toradol order fell off and has been resumed at this time. She states that it is difficult to swallow pills due to the NG tube and anxiety medication was changed over to IV Ativan. She is encouraged to use her incentive spirometer. She does have positive bowel sounds. She is afebrile and on room air. Review of Systems Constitutional: Denied any fatigue denied any fever. Cardio vascular: denied any chest pain, palpitations Gastrointestinal: Reports abdominal pain, nausea no vomiting or diarrhea Pulmonary: Denied any shortness of breath cough Neurologic: denied any new focal deficits All inpatient medications were reviewed and appropriate changes in these medications as dictated in the interval history and assessment and plan. PHYSICAL EXAMINATION: GENERAL: The patient is alert and oriented x3, not in any acute distress. Well developed, well nourished. Obese HEENT: Pupils are round and equally reacting to light. EOMI. No scleral icterus. No conjunctival pallor. Normocephalic, atraumatic. No pharyngeal erythema. No thyromegaly. CARDIOVASCULAR: S1 and S2 present. No murmurs, rubs, or gallops. PULMONARY: Chest is clear to auscultation, no wheezing or crackles. ABDOMEN: Soft, mild tenderness, sluggish bowels. No palpable organomegaly. LLQ colostomy. Midline incision with wound vac in place. RLQ LASHA drain in place. MUSCULOSKELETAL: No joint swelling or deformity. EXTREMITIES: No cyanosis, clubbing, or pedal edema. NEUROLOGICAL: Gross neurological examination did not reveal any focal deficits. SKIN: No rashes Assessment: -Diverticulitis with microperforations postoperative day #3 exploratory lap, sigmoid colectomy, colostomy formation, and appendectomy. -Leukocytosis due to assessment #1, trending down -Hypokalemia -Sepsis with tachycardia, continue IV fluids at 125 mL/h normal saline -Anxiety, will add a low-dose of Xanax -Obesity with a BMI of 37.1 -GI prophylaxis -DVT prophylaxis: Lovenox -Full code Plan: Will continue monitor closely on bowel rest and IV antibiotics per surgery re commendations Xanax has been discontinued and patient is given IV Ativan every 6 hours Continue IV Toradol and IV Dilaudid. Due to the hypernatremia from the free water deficit patient has been started on D5 water with 20 potassium Preliminary surgical cultures showing gram-negative bacilli patient continues on IV Zosyn Will follow-up with repeat labs and monitor CBC Replace electrolytes per protocol Continue to encourage incentive spirometer 10 x an hour while awake. The impression and plan of care has been dictated by Mag Bailey, Nurse Practitioner as directed. Dr. Jay MD I have performed a history and physical examination and medical decision making of this patient, discussed the same with the dictator, and agree with the dictators assessment and plan as written, documented as a scribe. Based on total visit time, I have performed more than 50% of this visit. Objective - Vital Signs Vital signs: Vital Signs Temp 98.4 F 05/12/24 20:00 Pulse 82 05/12/24 20:00 Resp 15 05/12/24 20:00 BP 123/60 05/12/24 20:00 Pulse Ox 97 05/12/24 20:00 FiO2 Intake & Output 05/12/24 05/12/24 05/13/24 06:59 18:59 06:59 Intake Total 1900 Output Total 400 1510 150 Balance 1500 -1510 -150 Intake: Intake, IV Titration 1900 Amount ACETAMINOPHEN IV (For NPO 200 ) 1,000 mg In Empty Bag 1 bag @ 400 mls/hr IVPB Q6HR [facility] Rx#:[id number] Piperacillin-Tazobactam 3 200 .375 gm In Sodium Chloride 0.9% 100 ml @ 25 mls/hr IVPB Q8H [facility] Rx#: [id number] Sodium Chloride 0.9% 1, 1500 000 ml @ 125 mls/hr IV . Q8H [facility] Rx#:[id number] Output: Drainage 110 Medial Abdomen 100 Right Abdomen 10 Urine 400 1400 150 Uretheral (Posey) 700 Other: Voiding Method Indwelling Catheter # Voids 1 - Labs CBC & Chem 7: 05/12/24 03:29 05/12/24 03:29 Labs: Abnormal Lab Results - Last 24 Hours (Table) 05/12/24 05/12/24 Range/Units 03:29 03:29 WBC 15.82 H (4.50-10.00) X 10*3/uL RBC 3.38 L (4.10-5.20) X 10*6/uL Hgb 9.5 L (12.0-15.0) g/dL Hct 30.0 L (37.2-46.3) % MCHC 31.7 L (32.0-37.0) g/dL Immature Gran # 0.63 H (0.00-0.04) X 10*3/uL Neutrophils # 12.42 H (1.80-7.70) X 10*3/uL Monocytes # 1.23 H (0.20-1.00) X 10*3/uL Eosinophils # 0.03 L (0.04-0.35) X 10*3/uL Sodium 149 H (135-145) mmol/L Chloride 115 H (96-109) mmol/L Carbon Dioxide 20.7 L (21.6-31.8) mmol/L Anion Gap 13.30 H (4.00-12.00) mmol/L BUN/Creatinine Ratio 24.67 H (12.00-20.00) Ratio Calcium 8.0 L (8.7-10.3) mg/dL Microbiology - Last 24 Hours (Table) 05/06/24 13:15 Blood Culture - Final Blood Assessment and Plan Time with Patient: Less than 30
[2024-05-13 08:50] LABS: Blood Urea Nitrogen 13.7 mg/dL (9.0-27.0); Calcium 7.9 mg/dL (8.7-10.3); Carbon Dioxide 24.2 mmol/L (21.6-31.8); Chloride 113 mmol/L (96-109); Glucose 128 mg/dL (70-110); Magnesium 2.1 mg/dL (1.5-2.4); Potassium 3.5 mmol/L (3.5-5.5); Sodium 149 mmol/L (135-145)
[2024-05-13 09:13] LABS: HCT 29.8 % (37.2-46.3); HGB 9.4 g/dL (12.0-15.0); MCH 27.5 pg (27.0-32.0); MCHC 31.5 g/dL (32.0-37.0); MCV 87.1 FL (80.0-97.0); Mean Platelet Volume 9.5 FL (9.5-12.2); NRBC Per 100 WBC 0.02 X 10*3/uL (0.00-0.01); Platelet Count 450 X 10*3/uL (140-440); RBC 3.42 X 10*6/uL (4.10-5.20); RDW 14.6 % (11.5-14.5); WBC 20.39 X 10*3/uL (4.50-10.00)
[2024-05-13 09:58] LABS: Basophils # (M) 0 X 10*3/uL (0.00-0.10); Eosinophils # (M) 0 X 10*3/uL (0.04-0.35); Lymphocytes # (M) 1.22 X 10*3/uL (0.90-5.00); Monocytes # (M) 1.22 X 10*3/uL (0.20-1.00); Neutrophils # (M) 17.94 X 10*3/uL (1.80-7.70); Neutrophils % (M) 88 %
--- NOTE | 2024-05-13 12:22 | P.PN ---
Subjective Progress Note Date: 05/13/24 SURGICAL PROGRESS NOTE CHIEF COMPLAINT: Perforated sigmoid diverticulitis HISTORY OF PRESENT ILLNESS: Postop day #4 status post exploratory laparotomy, sigmoid colectomy, appendectomy and ostomy creation. Patient has had a small amount of air in her colostomy bag with serosanguineous drainage. 200 mL output through the NG tube during the night. LASHA drain with 0 to minimal output. Patient does have drainage from the Prevena wound VAC that is purulent in color. Prevena wound VAC is not holding suction. Patient does report abdominal pain at incision site. Patient reports pain is controlled. [place] and Robaxin was added yesterday. Afebrile. WBC is up from 15.8-20.39 sodium 149. Culture grow ing E. coli PHYSICAL EXAM: VITAL SIGNS: Reviewed. GENERAL: Well-developed in no acute distress. ABDOMEN: Soft. Prevena wound VAC with loss of suction. There is purulent drainage noted in the canister. Mild tenderness with palpation of midline incision. LASHA drain with very minimal serous drainage NEUROLOGIC: Alert and oriented. Cranial nerves II through XII grossly intact. ASSESSMENT: 1. Sigmoid diverticulitis with perforation PLAN: -Agree with infectious disease consult regarding worsening leukocytosis -Discontinue NG tube -Start clear liquid diet -Discontinue Prevena wound VAC. It is not holding suction. Apply wet-to-dry dressing to midline incision -Culture drainage from incision -Add Ensure for protein supplement -Continue antibiotics -Continue IV fluids. Medicine service has adjusted IV fluids to D5 with potassium yesterday because of hypernatremia -Repeat labs in a.m. -Encourage patient increase activity level -Encourage patient to use incentive spirometer -DVT prophylaxis Lovenox and GI prophylaxis Pepcid Physician Doctor Of Nurse Anesthesia note has been reviewed by physician. Signing provider agrees with the documented findings, assessment, and plan of care. Objective - Vital Signs Vital signs: Vital Signs Temp 98.1 F 05/13/24 08:06 Pulse 60 05/13/24 08:06 Resp 17 05/13/24 08:06 BP 138/81 05/13/24 08:06 Pulse Ox 98 05/13/24 08:06 FiO2 Intake & Output 05/12/24 05/13/24 05/13/24 18:59 06:59 18:59 Output Total 1510 300 Balance -1510 -300 Output: Drainage 110 Medial Abdomen 100 Right Abdomen 10 Urine 1400 300 Uretheral (Posey) 700 Other: Voiding Method Indwelling Catheter # Voids 1 - Labs CBC & Chem 7: 05/13/24 03:20 05/13/24 03:20 Labs: Abnormal Lab Results - Last 24 Hours (Table) 05/13/24 05/13/24 Range/Units 03:20 03:20 WBC 20.39 H (4.50-10.00) X 10*3/uL RBC 3.42 L (4.10-5.20) X 10*6/uL Hgb 9.4 L (12.0-15.0) g/dL Hct 29.8 L (37.2-46.3) % MCHC 31.5 L (32.0-37.0) g/dL RDW 14.6 H (11.5-14.5) % Plt Count 450 H (140-440) X 10*3/uL Neutrophils # (Manual) 17.94 H (1.80-7.70) X 10*3/uL Monocytes # (Manual) 1.22 H (0.20-1.00) X 10*3/uL Eosinophils # (Manual) 0 L (0.04-0.35) X 10*3/uL NRBC/100 WBC Diff 0.02 H (0.00-0.01) X 10*3/uL Sodium 149 H (135-145) mmol/L Chloride 113 H (96-109) mmol/L Creatinine 0.5 L (0.6-1.5) mg/dL BUN/Creatinine Ratio 27.40 H (12.00-20.00) Ratio Glucose 128 H (70-110) mg/dL Calcium 7.9 L (8.7-10.3) mg/dL Microbiology - Last 24 Hours (Table) 05/09/24 14:29 Gram Stain - Final Other - Other Wound Culture - Final Escherichia coli Assessment and Plan Assessment: 28-year-old female with perforated diverticulitis status post [place] laparotomy with colostomy creation and LASHA drain placement [place] a few bottom boris Continue antibiotics follow up infectious disease Bowel function pending Time with Patient: Less than 30
[2024-05-13 12:53] VITALS: BMI 37.1
--- NOTE | 2024-05-13 14:19 | P.PN ---
Subjective Progress Note Date: 05/13/24 Patient pleasant 28-year-old female came in with complaints of right as well as left lower quadrant abdominal pain for 2 days which is severe sharp in nature. Patient denied any nausea vomiting fever chills had leukocytosis of 26,300, patient had a CT of the abdomen showed severe diverticulitis with micro perforations and free fluid in the abdomen without any clear evidence of peritonitis. Patient's pain is cramping in nature significantly improved after pain medications General Surgery was consulted and patient is admitted with Zosyn. 05/07/2024 Patient eval today in follow-up in the medical floor. He continues to report significant left lower quadrant abdominal pain which is now radiating over to the right side and up to the right anterior quadrant. She is having some nausea associated with this and feels like she is short of breath and not wanting to take a deep breath at this time secondary to the pain. Pain medications to be adjusted by general surgery will also add a low-dose of Xanax as patient does appear quite anxious today. Her white blood cell count remains elevated at 20.1 , renal function and BUN of 8 and a creatinine of 0.70. Magnesium of 1.7. Patient has continued to have elevated temps up to 102.5 overnight she is also mildly tachycardic with a heart rate of 107. She continues on IV Zosyn remains NPO. 05/08/2024 Patient is seen in follow-up today continues to report pain especially when getting up and moving around. Patient reports to having some mild shortness of breath although maintaining oxygen saturations above 95% on room air. Patient is currently n.p.o. and will continue per surgery on bowel rest and antibiotics. Recommend incentive spirometer and encouraged frequent walking and sitting out of the bed more often. Patient is afebrile and white count is improving at 15.7 from 20.1 yesterday. Sodium within normal limits at 139 with a potassium of 3.4 which is being replaced, creatinine stable at 0.64. No immediate plans for surgery at this time per surgery recommend to continue monitoring closely. Patient reports passing gas but has not had a bowel movement as of yet. 05/09/2024 Evaluated in follow-up. She continues to report significant abdominal pain mostly in the right and left lower quadrant however more radiating up into the right upper quadrant. Her white blood cell count today remains elevated at 20. She had a temperature overnight of 100.4. She continues on IV Zosyn at this time. Did discuss with nursing and respiratory therapy to bring the patient incentive spirometer. = Continue with conservative management and no plans at this time for conservative management per general surgery. 05/10/2024 Patient evaluated today in follow up on the medical floor. Postoperative day #1 exploratory laporotomy with sigmoidectomy, and colostomy creation and also appendectomy with drain placement. Has midline woundvac. White blood cell count today 15.6. Potassium 3.3. 05/11/2024 Patient evaluated today in follow-up in the medical floor she is postoperative day #2 exploratory laparotomy with sigmoidectomy and colostomy creation and also appendectomy. LASHA drain in place. Patient is a midline wound VAC. NG tube in p lace to low intermittent suction patient has had 2.1 L of gastric output in the last 24 hours. Indwelling Posey catheter was replaced. Surgical cultures are coming back growing E. coli. Patient remains on IV Zosyn. 05/12/2024 Patient evaluated in follow-up of medical floor she is postoperative day #3 exploratory laparotomy with sigmoidectomy and colostomy creation and also appendectomy. LASHA drain remains in place with 5 mL of output in the last 24 hours. Indwelling catheter remains in place with plans to remove today. Patient continues with NG tube in place states that she was having increased pain overnight and pain is currently rating out of 10. The IV Toradol order fell off and has been resumed at this time. She states that it is difficult to swallow pills due to the NG tube and anxiety medication was changed over to IV Ativan. She is encouraged to use her incentive spirometer. She does have positive bowel sounds. She is afebrile and on room air. 05/13/2024 Patient evaluated in follow up on the medical floor. Patient is postoperative day #4 exploratory laporatomy with sigmoidectomy colostomy creation and appendectomy. LASHA drain remains in place. Patient having increased purulent drainage from the midline incision and white blood cell count up to 20. Surgery with plans to take off the prevana today for further wound cultures. Cultures are showing E.coli and bacteroides. Sodium 149, potassium 3.5. Magnesium 2.1. Review of Systems Constitutional: Denied any fatigue denied any fever. Cardio vascular: denied any chest pain, palpitations Gastrointestinal: Reports abdominal pain, nausea no vomiting or diarrhea Pulmonary: Denied any shortness of breath cough Neurologic: denied any new focal deficits All inpatient medications were reviewed and appropriate changes in these medications as dictated in the interval history and assessment and plan. PHYSICAL EXAMINATION: GENERAL: The patient is alert and oriented x3, not in any acute distress. Well developed, well nourished. Obese HEENT: Pupils are round and equally reacting to light. EOMI. No scleral icterus. No conjunctival pallor. Normocephalic, atraumatic. No pharyngeal erythema. No thyromegaly. CARDIOVASCULAR: S1 and S2 present. No murmurs, rubs, or gallops. PULMONARY: Chest is clear to auscultation, no wheezing or crackles. ABDOMEN: Soft, mild tenderness, sluggish bowels. No palpable organomegaly. LLQ colostomy. Midline incision with wound vac in place. RLQ LASHA drain in place. MUSCULOSKELETAL: No joint swelling or deformity. EXTREMITIES: No cyanosis, clubbing, or pedal edema. NEUROLOGICAL: Gross neurological examination did not reveal any focal deficits. SKIN: No rashes Assessment: -Diverticulitis with microperforations postoperative day #4 exploratory lap, sigmoid colectomy, colostomy formation, and appendectomy. -Leukocytosis due to assessment #1 with purulent drainage from midline incision. -Hypokalemia -Hypernatremia from free water deficit. -Sepsis with tachycardia -Anxiety, will add a low-dose of Xanax -Obesity with a BMI of 37.1 -GI prophylaxis -DVT prophylaxis: Lovenox -Full code Plan: Will continue monitor closely on bowel rest and IV antibiotics per surgery re commendations Xanax has been discontinued and patient is given IV Ativan every 6 hours Continue IV Toradol and IV Dilaudid. Due to the hypernatremia from the free water deficit patient has been started on D5 water with 20 potassium Preliminary surgical cultures showing gram-negative bacilli due to the worsening white blood cell count and drainage from the abdomen ID will be consulted for further recommendations and antibiotic management. Will follow-up with repeat labs and monitor CBC Replace electrolytes per protocol Continue to encourage incentive spirometer 10 x an hour while awake. The impression and plan of care has been dictated by Nurse Chad Leblanc as directed. Dr. Jay MD I have performed a history and physical examination and medical decision making of this patient, discussed the same with the dictator, and agree with the dictat ors assessment and plan as written, documented as a scribe. Based on total visit time, I have performed more than 50% of this visit. Objective - Vital Signs Vital signs: Vital Signs Temp 98.1 F 05/13/24 08:06 Pulse 60 05/13/24 08:06 Resp 17 05/13/24 08:06 BP 138/81 05/13/24 08:06 Pulse Ox 98 05/13/24 08:06 FiO2 Intake & Output 05/12/24 05/13/24 05/13/24 18:59 06:59 18:59 Output Total 1510 300 Balance -1510 -300 Output: Drainage 110 Medial Abdomen 100 Right Abdomen 10 Urine 1400 300 Uretheral (Posey) 700 Other: Voiding Method Indwelling Catheter # Voids 1 - Labs CBC & Chem 7: 05/13/24 03:20 05/13/24 03:20 Labs: Abnormal Lab Results - Last 24 Hours (Table) 05/13/24 05/13/24 Range/Units 03:20 03:20 WBC 20.39 H (4.50-10.00) X 10*3/uL RBC 3.42 L (4.10-5.20) X 10*6/uL Hgb 9.4 L (12.0-15.0) g/dL Hct 29.8 L (37.2-46.3) % MCHC 31.5 L (32.0-37.0) g/dL RDW 14.6 H (11.5-14.5) % Plt Count 450 H (140-440) X 10*3/uL NRBC/100 WBC Diff 0.02 H (0.00-0.01) X 10*3/uL Sodium 149 H (135-145) mmol/L Chloride 113 H (96-109) mmol/L Creatinine 0.5 L (0.6-1.5) mg/dL BUN/Creatinine Ratio 27.40 H (12.00-20.00) Ratio Glucose 128 H (70-110) mg/dL Calcium 7.9 L (8.7-10.3) mg/dL Assessment and Plan Time with Patient: Less than 30
[2024-05-13] MEDS: metroNIDAZOLE-NS PMX 500 MG in SALINE 1 100ML.BAG IVPB SCH (14:44)
[2024-05-13] MEDS: AMPICILLIN-SULBACTAM 3 GM in SODIUM CHLORIDE 0.9% 100 ML IVPB SCH (17:10)
--- NOTE | 2024-05-13 21:53 | P.CONS ---
History of Present Illness - Reason for Consult Consult date: 05/13/24 Leukocytosis Requesting physician: Mag Bailey - Chief Complaint Abdominal pain x few days - History of Present Illness Patient is a 28-year-old female with no significant past medical history presenting to the hospital about a week ago on 05/06/2024 for evaluation of abdominal pain that has been going on for about 2 days before the presentation to the hospital patient did have abdominal pelvis CT that was suggestive of acute perforated sigmoid diverticulitis with few foci of pneumoperitoneum small amount of free fluid patient was evaluated by general surgery and the patient is status post expiratory laparotomy with sigmoidectomy and colostomy creation along with appendectomy and drain placement procedure completed on 05/09/2024 operative report is still not available in the system, patient did have fever on presentation to the hospital with highest temperature of 102.5 on 05/07/2024 however the patient fever subsequently has resolved patient also have a significant evaluated 26,000 admission that came down to 13.5 however is up to 20,000 today that has prompted this consultation, patient denies having any fever though complaining of feeling hot no chills did have some headache but no URI symptoms and she has been discontinued some nausea but no vomiting no chest pain shortness of breath or cough abdominal pain is about 8 out of 10 is controlled with the pain medication did have some output in the colostomy bag she was noticed to have some drainage from the lower end of the incision has been cultured patient is currently on Zosyn since admission Review of Systems Positive point and negatives has been mentioned in the HPI, complete review of systems was performed and all other systems are negative Past Medical History Additional Past Medical History / Comment(s): IUD, History of Any Multi-Drug Resistant Organisms: None Reported Past Surgical History: Tonsillectomy Past Anesthesia/Blood Transfusion Reactions: No Reported Reaction Past Psychological History: No Psychological Hx Reported Smoking Status: Former smoker Past Alcohol Use History: None Reported Past Drug Use History: Marijuana Medications and Allergies Home Medications Medication Instructions Recorded Confirmed Type No Known Home Medications 05/06/24 05/06/24 History Allergies Allergy/AdvReac Type Severity Reaction Status Date / Time No Known Allergies Allergy Verified 05/06/24 13:16 Physical Exam Vitals: Vital Signs Temp Pulse Resp BP Pulse Ox 05/13/24 08:06 98.1 F 60 17 138/81 98 05/13/24 02:00 97.3 F L 83 17 143/81 99 05/12/24 20:00 98.4 F 82 15 123/60 97 05/12/24 15:23 99.6 F 66 17 132/74 95 Intake and Output 05/12/24 05/13/24 05/13/24 22:59 06:59 14:59 Output Total 1655 150 Balance -1655 -150 Output: Drainage 105 Medial Abdomen 100 Right Abdomen 5 Urine 1550 150 Uretheral (Posey) 700 Other: # Voids 1 1 Weight 104.326 kg GENERAL DESCRIPTION: Middle-aged female lying in bed, no distress. No tachypnea or accessory muscle of respiration use. HEENT: Shows Pallor , no scleral icterus. Oral mucous membrane is dry. NECK: Trachea central, no thyromegaly. LUNGS: Unlabored breathing. Clear to auscultation anteriorly. 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 HEART: S1, S2, regular rate and rhythm. No loud murmur ABDOMEN: Soft, midline incision is currently intact with no swelling or redness minimal drainage from the lower end EXTREMITIES: No edema of feet. SKIN: No rash, no masses palpable. NEUROLOGICAL: The patient is awake, alert, oriented x3, mood and affect normal. Results CBC & Chem 7: 05/14/24 03:29 05/14/24 03:29 Labs: Abnormal Lab Results - Last 24 Hours (Table) 05/13/24 05/13/24 Range/Units 03:20 03:20 WBC 20.39 H (4.50-10.00) X 10*3/uL RBC 3.42 L (4.10-5.20) X 10*6/uL Hgb 9.4 L (12.0-15.0) g/dL Hct 29.8 L (37.2-46.3) % MCHC 31.5 L (32.0-37.0) g/dL RDW 14.6 H (11.5-14.5) % Plt Count 450 H (140-440) X 10*3/uL Neutrophils # (Manual) 17.94 H (1.80-7.70) X 10*3/uL Monocytes # (Manual) 1.22 H (0.20-1.00) X 10*3/uL Eosinophils # (Manual) 0 L (0.04-0.35) X 10*3/uL NRBC/100 WBC Diff 0.02 H (0.00-0.01) X 10*3/uL Sodium 149 H (135-145) mmol/L Chloride 113 H (96-109) mmol/L Creatinine 0.5 L (0.6-1.5) mg/dL BUN/Creatinine Ratio 27.40 H (12.00-20.00) Ratio Glucose 128 H (70-110) mg/dL Calcium 7.9 L (8.7-10.3) mg/dL Microbiology - Last 24 Hours (Table) 05/09/24 14:29 Anaerobic Culture - Preliminary Peritoneal Fluid Bacteroides fragilis Group Bacteroides ovatus 05/09/24 14:29 Gram Stain - Final Other - Other Wound Culture - Final Escherichia coli Assessment and Plan (1) Sepsis Current Visit: Yes Status: Acute Code(s): A41.9 - SEPSIS, UNSPECIFIED ORGANISM SNOMED Code(s): 15364606 (2) Perforation of sigmoid colon due to diverticulitis Current Visit: Yes Status: Acute Code(s): K57.20 - DVTRCLI OF LG INT W PERFORATION AND ABSCESS W/O BLEEDING SNOMED Code(s): 8452140514145913 Plan: 1patient presented to hospital with sepsis in this patient who did have fever tachycardia elevated white count source is perforated sigmoid diverticulitis in this patient who is status post laparotomy sigmoid colectomy appendectomy and end colostomy 2-patient noticed to have worsening of the white count and is also have some drainage from lower end of incision which has been culture, initial abdominal culture have been finalized with E. coli that is a sensitive admission however also growing bacteroids fragilis and may not have been covered with Zosyn could be responsible for this elevated white count 3I will discontinue Zosyn and start the patient on Unasyn and Flagyl and follow-up on the abdominal culture obtained today Multiple question concern answered in layman terms We will follow on clinical condition and cultures to further adjust medication if needed Thank you for this consultation we will follow the patient along with you Dictation was produced using [employer] dictation software. please excuse any grammatical, word or spelling errors. Time with Patient: Greater than 30
[2024-05-14 08:53] LABS: HCT 30.5 % (37.2-46.3); HGB 9.9 g/dL (12.0-15.0); MCH 28.1 pg (27.0-32.0); MCHC 32.5 g/dL (32.0-37.0); MCV 86.6 FL (80.0-97.0); Mean Platelet Volume 9.2 FL (9.5-12.2); NRBC Per 100 WBC 0.04 X 10*3/uL (0.00-0.01); Platelet Count 544 X 10*3/uL (140-440); RBC 3.52 X 10*6/uL (4.10-5.20); RDW 14.3 % (11.5-14.5); WBC 20.71 X 10*3/uL (4.50-10.00)
[2024-05-14 09:17] LABS: Calcium 7.8 mg/dL (8.7-10.3); Carbon Dioxide 24.4 mmol/L (21.6-31.8); Chloride 106 mmol/L (96-109); Glucose 86 mg/dL (70-110); Magnesium 1.8 mg/dL (1.5-2.4); Potassium 3.5 mmol/L (3.5-5.5); Sodium 142 mmol/L (135-145)
[2024-05-14 09:42] LABS: Basophils # (M) 0 X 10*3/uL (0.00-0.10); Eosinophils # (M) 0 X 10*3/uL (0.04-0.35); Lymphocytes # (M) 1.45 X 10*3/uL (0.90-5.00); Metamyelocytes % 1 % (0-0); Monocytes # (M) 0.83 X 10*3/uL (0.20-1.00); Myelocytes % 3 % (0-0); Neutrophils % (M) 85 %
[2024-05-14] MEDS: ACETAMINOPHEN TAB 500 MG TAB PO SCH (12:07)
--- NOTE | 2024-05-14 14:32 | P.PN ---
Subjective Progress Note Date: 05/14/24 SURGICAL PROGRESS NOTE CHIEF COMPLAINT: Perforated sigmoid diverticulitis HISTORY OF PRESENT ILLNESS: Postop day #5 status post exploratory laparotomy, sigmoid colectomy, appendectomy and ostomy creation. Patient was having drainage from the distal aspect of the incision. Dr. Bowling did remove boris from that distal part of the incision. And area is packed. Patient complains of abdominal pain. She is having a liquidy brownish output from her stoma. Denies any nausea or vomiting. Eating only a small amount of the clear liquids. She does not really like the clear liquid diet. Patient does report abdominal pain. patient seen by infectious ease and antibiotics adjusted. WBC about the same at 20.7 Hgb 9.9 wound culture growing E. coli PHYSICAL EXAM: VITAL SIGNS: Reviewed. GENERAL: Well-developed in no acute distress. ABDOMEN: Soft. Drainage distal incision. Packing in place. Ostomy with light brownish liquid. Stoma pink. PEE drain with serous cloudy fluid. NEUROLOGIC: Alert and oriented. Cranial nerves II through XII grossly intact. ASSESSMENT: 1. Sigmoid diverticulitis with perforation 2. Surgical site infection PLAN: -Remove packing from midline incision. Wound VAC has been ordered -Advance diet to regular -Antibiotics per ID service -Continue pain management -CT scan abdomen and pelvis with oral and IV contrast to be ordered for tomorrow -Encourage patient increase activity level -Encourage patient to use incentive spirometer -DVT prophylaxis Lovenox and GI prophylaxis Pepcid Physician Product Consultant note has been reviewed by physician. Signing provider agrees with the documented findings, assessment, and plan of care. Objective - Vital Signs Vital signs: Vital Signs Temp 98.5 F 05/14/24 08:44 Pulse 79 05/14/24 08:44 Resp 16 05/14/24 08:44 BP 124/75 05/14/24 08:44 Pulse Ox 96 05/14/24 08:44 FiO2 Intake & Output 05/13/24 05/14/24 05/14/24 18:59 06:59 18:59 Intake Total 1000 Output Total 5 Balance 995 Weight 104.326 kg Intake: Intake, IV Titration 1000 Amount Ampicillin-Sulbactam 3 gm 100 In Sodium Chloride 0.9% 100 ml @ 200 mls/hr IVPB Q6HR [facility] Rx#:[id number] D5w with KCl 20 Meq/l 1, 800 000 ml @ 100 mls/hr IV . Q10H [facility] Rx#:[id number] metroNIDAZOLE-NS PMX 500 100 mg In Saline 1 100ml.bag @ 100 mls/hr IVPB Q8H [facility] Rx#:[id number] Output: Drainage 5 Right Abdomen 5 Other: Voiding Method Toilet # Voids 3 - Labs CBC & Chem 7: 05/14/24 03:29 05/14/24 03:29 Labs: Abnormal Lab Results - Last 24 Hours (Table) 05/14/24 05/14/24 Range/Units 03:29 03:29 WBC 20.71 H (4.50-10.00) X 10*3/uL RBC 3.52 L (4.10-5.20) X 10*6/uL Hgb 9.9 L (12.0-15.0) g/dL Hct 30.5 L (37.2-46.3) % Plt Count 544 H (140-440) X 10*3/uL MPV 9.2 L (9.5-12.2) FL Neutrophils # (Manual) 17.60 H (1.80-7.70) X 10*3/uL Eosinophils # (Manual) 0 L (0.04-0.35) X 10*3/uL NRBC/100 WBC Diff 0.04 H (0.00-0.01) X 10*3/uL BUN 7.0 L (9.0-27.0) mg/dL Creatinine 0.5 L (0.6-1.5) mg/dL Calcium 7.8 L (8.7-10.3) mg/dL Microbiology - Last 24 Hours (Table) 05/09/24 14:29 Anaerobic Culture - Final Peritoneal Fluid Bacteroides fragilis Group Bacteroides ovatus 05/13/24 11:23 Gram Stain - Preliminary Abdomen Wound Culture - Preliminary Escherichia coli 05/09/24 14:29 Gram Stain - Final Other - Other Wound Culture - Final Escherichia coli Assessment and Plan Assessment: 28 yo female s/p perforated diverticulitis s/p ex lap with colostomy creation and pee drain placement local wound infection id recs for abx s/p local wound washout with wound vac application Time with Patient: Less than 30
[2024-05-14] MEDS: FUROSEMIDE 10 MG/ML 4 ML VIAL IV STA (14:44)
--- NOTE | 2024-05-14 15:09 | XR ---
EXAMINATION TYPE: XR chest 1V portable DATE OF EXAM: 05/14/2024 2:50 PM COMPARISON: 05/09/2024 CLINICAL INDICATION: Female, 28 years old with history of chf, TECHNIQUE: Single frontal view of the chest is obtained. FINDINGS: Pneumoperitoneum seen previously has resolved. There is elevation right hemidiaphragm with suspected right basilar atelectasis and/or infiltrate. Pulmonary vasculature appears engorged althoug h not overtly congested. IMPRESSION: There is elevation right hemidiaphragm with suspected right basilar atelectasis and/or i nfiltrate. [facility], , 05/14/2024 3:07 PM
--- NOTE | 2024-05-15 07:59 | P.PN ---
Subjective Progress Note Date: 05/14/24 Principal diagnosis: Reason for follow-up is leukocytosis and abdominal abscess Patient is a 28-year-old female with no significant past medical history presenting to the hospital with abdominal pain has been diagnosed with perforated diverticulitis status post laparotomy and diverting colostomy patient did have worsening of the white count a week after admission to the hospital prompted this consultation. On today's evaluation that is 05/14/2024,the patient denies any fever or any chills, patient is breathing comfortably on room air, the patient denies chest pain shortness of breath and no significant cough, patient denies any worsening abdominal pain some nausea but no vomiting minimal output in the colostomy. Patient white count is about the same as yesterday 20.71 creatinine 0.5 abdominal cultures with bacteroids and E. coli Objective - Vital Signs Vital signs: Vital Signs Temp 98.5 F 05/14/24 08:44 Pulse 79 05/14/24 08:44 Resp 16 05/14/24 08:44 BP 124/75 05/14/24 08:44 Pulse Ox 96 05/14/24 08:44 FiO2 Intake & Output 05/13/24 05/14/24 05/14/24 18:59 06:59 18:59 Intake Total 1000 Output Total 5 Balance 995 Weight 104.326 kg Intake: Intake, IV Titration 1000 Amount Ampicillin-Sulbactam 3 gm 100 In Sodium Chloride 0.9% 100 ml @ 200 mls/hr IVPB Q6HR [facility] Rx#:[id number] D5w with KCl 20 Meq/l 1, 800 000 ml @ 100 mls/hr IV . Q10H [facility] Rx#:[id number] metroNIDAZOLE-NS PMX 500 100 mg In Saline 1 100ml.bag @ 100 mls/hr IVPB Q8H [facility] Rx#:[id number] Output: Drainage 5 Right Abdomen 5 Other: Voiding Method Toilet # Voids 3 - Exam GENERAL DESCRIPTION: Middle-age female up in the chair in no distress RESPIRATORY SYSTEM: Unlabored breathing , decreased breath sounds at bases HEART: S1 S2 regular rate and rhythm , ABDOMEN: Soft , lower end of incision opened up some drainage EXTREMITIES: No edema feet - Labs CBC & Chem 7: 05/14/24 03:29 05/14/24 03:29 Labs: Abnormal Lab Results - Last 24 Hours (Table) 05/14/24 05/14/24 Range/Units 03:29 03:29 WBC 20.71 H (4.50-10.00) X 10*3/uL RBC 3.52 L (4.10-5.20) X 10*6/uL Hgb 9.9 L (12.0-15.0) g/dL Hct 30.5 L (37.2-46.3) % Plt Count 544 H (140-440) X 10*3/uL MPV 9.2 L (9.5-12.2) FL Neutrophils # (Manual) 17.60 H (1.80-7.70) X 10*3/uL Eosinophils # (Manual) 0 L (0.04-0.35) X 10*3/uL NRBC/100 WBC Diff 0.04 H (0.00-0.01) X 10*3/uL BUN 7.0 L (9.0-27.0) mg/dL Creatinine 0.5 L (0.6-1.5) mg/dL Calcium 7.8 L (8.7-10.3) mg/dL Microbiology - Last 24 Hours (Table) 05/13/24 11:23 Gram Stain - Preliminary Abdomen 05/09/24 14:29 Anaerobic Culture - Preliminary Peritoneal Fluid Bacteroides fragilis Group Bacteroides ovatus 05/09/24 14:29 Gram Stain - Final Other - Other Wound Culture - Final Escherichia coli Assessment and Plan (1) Sepsis Current Visit: Yes Status: Acute Code(s): A41.9 - SEPSIS, UNSPECIFIED ORGANISM SNOMED Code(s): 82581718 (2) Perforation of sigmoid colon due to diverticulitis Current Visit: Yes Status: Acute Code(s): K57.20 - DVTRCLI OF LG INT W PER FORATION AND ABSCESS W/O BLEEDING SNOMED Code(s): 5769532710487052 Plan: 1patient presented to hospital with sepsis in this patient who did have fever tachycardia elevated white count source is perforated sigmoid diverticulitis in this patient who is status post laparotomy sigmoid colectomy appendectomy and end colostomy 2-patient noticed to have worsening of the white count and is also have some drainage from lower end of incision which has been culture, initial abdominal culture have been finalized with E. coli that is a sensitive admission however also growing bacteroids fragilis and may not have been covered with Zosyn could be responsible for this elevated white count 3patient antibiotic has been yesterday Unasyn and Flagyl and no significant worsening of the white count has been noticed we will follow on the abdominal wall cultures and adjust antibiotic further if needed Mother at the bedside questions answered Dictation was produced using [employer] dictation software. please excuse any grammatical, word or spelling errors. Time with Patient: Less than 30
--- NOTE | 2024-05-15 08:04 | PN ---
PROGRESS NOTE DATE OF SERVICE: 05/14/2024 SUBJECTIVE: This is a 28-year-old woman, who was admitted with diverticulitis and microperforation. Had sigmoid colectomy and appendectomy. The patient's white count is elevated. The patient is feeling like feeling hot and cold. No fever has been documented for several days. No chest pain. No palpitation. White count is 20.71. Dr. Mora has adjusted antibiotics from Infectious Disease point of view. PAST MEDICAL HISTORY: Reviewed. REVIEW OF SYSTEMS: A 14-point review of systems is negative except as mentioned earlier. CURRENT MEDICATIONS: Reviewed. PHYSICAL EXAMINATION: VITAL SIGNS: Pulse is 79, blood pressure 124/70, respirations 16. CHEST: A few scattered rhonchi. ABDOMEN: Soft. Colostomy present. LEGS: No edema. No swelling. NERVOUS SYSTEM: Nonfocal. LABORATORY DATA: WBC 20.71, sodium 142, potassium 3.5. ASSESSMENT: 1. Acute diverticulitis with microperforation, status post exploratory laparotomy, sigmoid colectomy, colostomy, and appendectomy. 2. Leukocytosis. 3. Hypokalemia. 4. Hypernatremia. 5. Anemia. 6. Wound culture with Escherichia coli. RECOMMENDATIONS AND DISCUSSION: I recommend to continue current management and continue symptomatic treatment. The patient also had Bacteroides growing from the culture also. I would recommend continue with Unasyn and Flagyl. Repeat labs. Closely monitor. Guarded prognosis. Further recommendations to follow. MMODL / IJN: [id number] /
[2024-05-15 08:48] LABS: HCT 30.4 % (37.2-46.3); HGB 9.9 g/dL (12.0-15.0); MCH 27.8 pg (27.0-32.0); MCHC 32.6 g/dL (32.0-37.0); MCV 85.4 FL (80.0-97.0); Mean Platelet Volume 8.9 FL (9.5-12.2); NRBC Per 100 WBC 0 X 10*3/uL (0.00-0.01); Platelet Count 525 X 10*3/uL (140-440); RBC 3.56 X 10*6/uL (4.10-5.20); WBC 15.86 X 10*3/uL (4.50-10.00)
[2024-05-15] MEDS: IOPAMIDOL CONTRAST (ORAL USE) VIAL PO PRN (08:51)
[2024-05-15 10:13] LABS: ALT 20 U/L (8-44); AST 27 U/L (13-35); Albumin 2.4 g/dL (3.8-4.9); Albumin/Globulin Ratio 0.92 Ratio (1.60-3.17); Alkaline Phosphatase 75 U/L (41-126); Blood Urea Nitrogen 4.6 mg/dL (9.0-27.0); Calcium 7.6 mg/dL (8.7-10.3); Carbon Dioxide 28.2 mmol/L (21.6-31.8); Chloride 101 mmol/L (96-109); Globulin 2.6 g/dL (1.6-3.3); Glucose 93 mg/dL (70-110); Potassium 3.2 mmol/L (3.5-5.5); Sodium 139 mmol/L (135-145); Total Bilirubin <0.2 mg/dL (0.3-1.2)
[2024-05-15 10:27] LABS: Basophils # (M) 0 X 10*3/uL (0.00-0.10); Eosinophils # (M) 0.48 X 10*3/uL (0.04-0.35); Lymphocytes # (M) 1.11 X 10*3/uL (0.90-5.00); Monocytes # (M) 1.74 X 10*3/uL (0.20-1.00); Myelocytes % 1 % (0-0); Neutrophils # (M) 12.37 X 10*3/uL (1.80-7.70); Neutrophils % (M) 78 %; RBC Morphology Normal (Normal)
[2024-05-15] MEDS ORDERED: MELOXICAM 7.5 MG TAB PO SCH (10:45)
[2024-05-15] MEDS ORDERED: IPRATROPIUM-ALBUTEROL 3 ML NEB INHALATION PRN (10:52)
--- NOTE | 2024-05-15 11:21 | CT ---
EXAMINATION TYPE: CT abdomen pelvis w con DATE OF EXAM: 05/15/2024 COMPARISON: 05/06/2024 CLINICAL INDICATION: Female, 28 years old with history of abdominal pain, elevated WBC; PHH, abdomina l pain, elevated WBC TECHNIQUE: Performed with Oral Contrast and with IV Contrast, patient injected with 100ml mL of Isovue 300. CT DLP: 2734.[address] CTDI: mGy Automated exposure control for dose reduction was used. FINDINGS: There has been interval development of small bilateral pleural effusions and bibasilar opacities righ t greater than left. The findings raise the question of pneumonia. The gallbladder is normal without distention, wall thickening, pericholecystic fluid or gallstones. T here is no biliary ductal dilatation. There is no focal mass or organomegaly involving the liver, pancreas, spleen or adrenal glands. There is no solid renal mass or hydronephrosis and there is homogeneous contrast enhancement of the r enal parenchyma. The caliber the abdominal aorta is normal is no retroperitoneal adenopathy or hemorr asia. There has been recent abdominal surgery with a midline abdominal incision with skin boris. There is a new ostomy in the left midabdomen. There is a peritoneal drainage catheter ending in the right abdomen and terminating in the upper aspe ct of the left hemipelvis. There are small loculated fluid collections one in the anterior right abdomen below the level of the liver and another near the tip of the drainage catheter in the left paracolic gutter. There is a smal l amount of free fluid within the cul-de-sac of the pelvis as well. There are a few small extraluminal droplets of air in the left pelvis. There is no discrete abscess. There is no bowel obstruction. There is moderate edema in the subcutaneous soft tissues of the lateral abdominal love, right greate r than left. The osseous structures are intact. IMPRESSION: 1. Interval development of small bilateral pleural effusions and bibasilar opacities, right greater t finley left. The findings are suspicious for pneumonia. 2. Postsurgical changes in the abdomen with colostomy and drainage catheter as described above. 3. A few droplets of free intraperitoneal air in the left pelvis and 2 small loculated fluid collecti ons within the abdomen or liver. There is no discrete abdominal abscess. 4. There is no bowel obstruction. 5. subcutaneous soft tissue edema in the abdominal wall bilaterally. [facility], , 05/15/2024 11:18 AM
[2024-05-15] MEDS: FUROSEMIDE 10 MG/ML 4 ML VIAL IV STA (11:37)
--- NOTE | 2024-05-15 12:29 | P.PN ---
Subjective Progress Note Date: 05/15/24 SURGICAL PROGRESS NOTE CHIEF COMPLAINT: Perforated sigmoid diverticulitis HISTORY OF PRESENT ILLNESS: Postop day #6 status post exploratory laparotomy, sigmoid colectomy, appendectomy and ostomy creation. Patient does report abdominal pain she rates it about a 6 out of 10. The pain is controlled. She does report nausea and no vomiting. She has been eating small amount of the regular food. Wound VAC placed yesterday with serosanguineous drainage noted in canister. LASHA drain with serous drainage. Afebrile. WBC is down from 20-15 Hgb 9.9 platelets 525 sodium 139 potassium is 3.[address] scan abdomen pelvis completed this morning with results reporting postsurgical changes in the abdomen with colostomy and drainage catheter. A few droplets of free intraperitoneal air in the left pelvis and 2 small loculated fluid collections within the abdomen or liver. No discrete abdominal abscesses. No bowel obstruction. Subcutaneous soft tissue edema in the abdominal wall bilaterally. Free air portion is an expected postsurgical finding. PHYSICAL EXAM: VITAL SIGNS: Reviewed. GENERAL: Well-developed in no acute distress. ABDOMEN: Soft. Wound VAC placed in place at the distal aspect of the incision. Ostomy with light brownish liquid. Stoma pink. LASHA drain with serous fluid. Less cloudy. NEUROLOGIC: Alert and oriented. Cranial nerves II through XII grossly intact. ASSESSMENT: 1. Sigmoid diverticulitis with perforation 2. Surgical site infection 3. Atelectasis 4. Hypokalemia PLAN: -Consult IR service for possible drain placement for the fluid collections noted in the abdomen on CT scan -Replace potassium -Continue wound VAC -Continue regular diet -Antibiotics per ID service -Continue pain management -Continue antiemetics -Encourage patient increase activity level -Encourage patient to use incentive spirometer -DVT prophylaxis Lovenox and GI prophylaxis Pepcid Physician Pathology Tech note has been reviewed by physician. Signing provider agrees with the documented findings, assessment, and plan of care. Objective - Vital Signs Vital signs: Vital Signs Temp 98.2 F 05/15/24 06:51 Pulse 80 05/15/24 06:51 Resp 18 05/15/24 06:51 BP 135/81 05/15/24 06:51 Pulse Ox 94 L 05/15/24 06:51 FiO2 Intake & Output 05/14/24 05/15/24 05/15/24 18:59 06:59 18:59 Intake Total 500 Output Total 10 Balance 490 Intake: Intake, IV Titration 500 Amount D5w with KCl 20 Meq/l 1, 400 000 ml @ 50 mls/hr IV . Q20H BELLA Rx#:[id number] metroNIDAZOLE-NS PMX 500 100 mg In Saline 1 100ml.bag @ 100 mls/hr IVPB Q8H BELLA Rx#:[id number] Output: Drainage 10 Right Abdomen 10 Other: Voiding Method Toilet Toilet # Voids 2 - Labs CBC & Chem 7: 05/15/24 03:45 05/15/24 03:45 Labs: Abnormal Lab Results - Last 24 Hours (Table) 05/14/24 05/14/24 05/15/24 Range/Units 03:29 03:29 03:45 WBC 15.86 H (4.50-10.00) X 10*3/uL RBC 3.56 L (4.10-5.20) X 10*6/uL Hgb 9.9 L (12.0-15.0) g/dL Hct 30.4 L (37.2-46.3) % Plt Count 525 H (140-440) X 10*3/uL MPV 8.9 L (9.5-12.2) FL Neutrophils # (Manual) 12.37 H (1.80-7.70) X 10*3/uL Monocytes # (Manual) 1.74 H (0.20-1.00) X 10*3/uL Eosinophils # (Manual) 0.48 H (0.04-0.35) X 10*3/uL ESR 35 H (0-20) mm/Hr Potassium (3.5-5.5) mmol/L BUN (9.0-27.0) mg/dL Creatinine (0.6-1.5) mg/dL BUN/Creatinine Ratio (12.00-20.00) Ratio Calcium (8.7-10.3) mg/dL Total Bilirubin (0.3-1.2) mg/dL C-Reactive Protein 12.30 H (0.00-0.80) mg/dL Total Protein (6.2-8.2) g/dL Albumin (3.8-4.9) g/dL Albumin/Globulin Ratio (1.60-3.17) Ratio 05/15/24 Range/Units 03:45 WBC (4.50-10.00) X 10*3/uL RBC (4.10-5.20) X 10*6/uL Hgb (12.0-15.0) g/dL Hct (37.2-46.3) % Plt Count (140-440) X 10*3/uL MPV (9.5-12.2) FL Neutrophils # (Manual) (1.80-7.70) X 10*3/uL Monocytes # (Manual) (0.20-1.00) X 10*3/uL Eosinophils # (Manual) (0.04-0.35) X 10*3/uL ESR (0-20) mm/Hr Potassium 3.2 L (3.5-5.5) mmol/L BUN 4.6 L (9.0-27.0) mg/dL Creatinine 0.5 L (0.6-1.5) mg/dL BUN/Creatinine Ratio 9.20 L (12.00-20.00) Ratio Calcium 7.6 L (8.7-10.3) mg/dL Total Bilirubin <0.2 L (0.3-1.2) mg/dL C-Reactive Protein (0.00-0.80) mg/dL Total Protein 5.0 L (6.2-8.2) g/dL Albumin 2.4 L (3.8-4.9) g/dL Albumin/Globulin Ratio 0.92 L (1.60-3.17) Ratio Microbiology - Last 24 Hours (Table) 05/13/24 11:23 Gram Stain - Final Abdomen Wound Culture - Final Escherichia coli 05/09/24 14:29 Anaerobic Culture - Final Peritoneal Fluid Bacteroides fragilis Group Bacteroides ovatus
[2024-05-15] MEDS: POTASSIUM CHLORIDE ER 20 MEQ TAB.ER PO STA (12:53)
--- NOTE | 2024-05-15 13:33 | P.PN ---
Subjective Progress Note Date: 05/15/24 Principal diagnosis: Reason for follow-up is leukocytosis and abdominal abscess Patient is a 28-year-old female with no significant past medical history presenting to the hospital with abdominal pain has been diagnosed with perforated diverticulitis status post laparotomy and diverting colostomy patient did have worsening of the white count a week after admission to the hospital prompted this consultation. On today's evaluation that is 05/15/2024,the patient remains to be afebrile, patient is on room air not requiring supplemental oxygen and denies any shortness of breath no chest pain or cough.Patient denies having any nausea or vomiting, abdominal pain is currently controlled feeling slightly better. Patient white blood cell 15.[address] abdominal pelvis did not show any intra-abdominal abscess Objective - Vital Signs Vital signs: Vital Signs Temp 98.2 F 05/15/24 06:51 Pulse 80 05/15/24 06:51 Resp 18 05/15/24 06:51 BP 135/81 05/15/24 06:51 Pulse Ox 94 L 05/15/24 06:51 FiO2 Intake & Output 05/14/24 05/15/24 05/15/24 18:59 06:59 18:59 Intake Total 500 Output Total 10 Balance 490 Intake: Intake, IV Titration 500 Amount D5w with KCl 20 Meq/l 1, 400 000 ml @ 50 mls/hr IV . Q20H [facility]LL[facility] Rx#:[id number] metroNIDAZOLE-NS PMX 500 100 mg In Saline 1 100ml.bag @ 100 mls/hr IVPB Q8H [facility]LLA Rx#:[id number] Output: Drainage 10 Right Abdomen 10 Other: Voiding Method Toilet Toilet # Voids 2 - Exam GENERAL DESCRIPTION: Middle-age female up in the chair in no distress RESPIRATORY SYSTEM: Unlabored breathing , decreased breath sounds at bases HEART: S1 S2 regular rate and rhythm , ABDOMEN: Soft , no significant tenderness EXTREMITIES: No edema feet - Labs CBC & Chem 7: 05/15/24 03:45 05/15/24 03:45 Labs: Abnormal Lab Results - Last 24 Hours (Table) 05/14/24 05/14/24 05/15/24 Range/Units 03:29 03:29 03:45 WBC 15.86 H (4.50-10.00) X 10*3/uL RBC 3.56 L (4.10-5.20) X 10*6/uL Hgb 9.9 L (12.0-15.0) g/dL Hct 30.4 L (37.2-46.3) % Plt Count 525 H (140-440) X 10*3/uL MPV 8.9 L (9.5-12.2) FL Neutrophils # (Manual) 12.37 H (1.80-7.70) X 10*3/uL Monocytes # (Manual) 1.74 H (0.20-1.00) X 10*3/uL Eosinophils # (Manual) 0.48 H (0.04-0.35) X 10*3/uL ESR 35 H (0-20) mm/Hr Potassium (3.5-5.5) mmol/L BUN (9.0-27.0) mg/dL Creatinine (0.6-1.5) mg/dL BUN/Creatinine Ratio (12.00-20.00) Ratio Calcium (8.7-10.3) mg/dL Total Bilirubin (0.3-1.2) mg/dL C-Reactive Protein 12.30 H (0.00-0.80) mg/dL Total Protein (6.2-8.2) g/dL Albumin (3.8-4.9) g/dL Albumin/Globulin Ratio (1.60-3.17) Ratio // Range/Units 03:45 WBC (4.50-10.00) X 10*3/uL RBC (4.10-5.20) X 10*6/uL Hgb (12.0-15.0) g/dL Hct (37.2-46.3) % Plt Count (140-440) X 10*3/uL MPV (9.5-12.2) FL Neutrophils # (Manual) (1.80-7.70) X 10*3/uL Monocytes # (Manual) (0.20-1.00) X 10*3/uL Eosinophils # (Manual) (0.04-0.35) X 10*3/uL ESR (0-20) mm/Hr Potassium 3.2 L (3.5-5.5) mmol/L BUN 4.6 L (9.0-27.0) mg/dL Creatinine 0.5 L (0.6-1.5) mg/dL BUN/Creatinine Ratio 9.20 L (12.00-20.00) Ratio Calcium 7.6 L (8.7-10.3) mg/dL Total Bilirubin <0.2 L (0.3-1.2) mg/dL C-Reactive Protein (0.00-0.80) mg/dL Total Protein 5.0 L (6.2-8.2) g/dL Albumin 2.4 L (3.8-4.9) g/dL Albumin/Globulin Ratio 0.92 L (1.60-3.17) Ratio Microbiology - Last 24 Hours (Table) 05/13/24 11:23 Gram Stain - Final Abdomen Wound Culture - Final Escherichia coli 05/09/24 14:29 Anaerobic Culture - Final Peritoneal Fluid Bacteroides fragilis Group Bacteroides ovatus Assessment and Plan (1) Sepsis Current Visit: Yes Status: Acute Code(s): A41.9 - SEPSIS, UNSPECIFIED ORGANISM SNOMED Code(s): 29470358 (2) Perforation of sigmoid colon due to diverticulitis Current Visit: Yes Status: Acute Code(s): K57.20 - DVTRCLI OF LG INT W PERFORATION AND ABSCESS W/O BLEEDING SNOMED Code(s): 5371796373209954 Plan: 1patient presented to hospital with sepsis in this patient who did have fever tachycardia elevated white count source is perforated sigmoid diverticulitis in this patient who is status post laparotomy sigmoid colectomy appendectomy and end colostomy 2-patient noticed to have worsening of the white count and is also have some drainage from lower end of incision which has been culture, initial abdominal culture have been finalized with E. coli that is a sensitive admission however also growing bacteroids fragilis and may not have been covered with Zosyn could be responsible for this elevated white count 3patient did have improvement her white count which is down to 15,000 CT abdominal pelvis did not show any intra-abdominal abscess we will continue Unasyn and Flagyl and monitor clinical course closely multiple question concern answered Dictation was produced using Clear[employer] dictation software. please excuse any grammatical, word or spelling errors. Time with Patient: Less than 30
[2024-05-15] MEDS: IPRATROPIUM-ALBUTEROL 3 ML NEB INHALATION SCH (16:11)
[2024-05-16 03:55] LABS: Basophils # (A) 0.1 k/uL (0-0.2); Basophils % (A) 0 %; Eosinophils # (A) 0.2 k/uL (0-0.7); Eosinophils % (A) 1 %; HCT 31.3 % (34.0-46.0); HGB 10.1 gm/dL (11.4-16.0); Lymphocytes # (A) 1.3 k/uL (1.0-4.8); Lymphocytes % (A) 10 %; MCH 28.1 pg (25.0-35.0); MCHC 32.4 g/dL (31.0-37.0); MCV 86.7 fL (80.0-100.0); Mean Platelet Volume 7.2; Monocytes # (A) 0.9 k/uL (0-1.0); Monocytes % (A) 7 %; Neutrophils # (A) 10.1 k/uL (1.3-7.7); Neutrophils % (A) 79 %; Platelet Count 553 k/uL (150-450); RBC 3.61 m/uL (3.80-5.40); RDW 13.7 % (11.5-15.5); WBC 12.7 k/uL (3.8-10.6)
[2024-05-16 04:06] LABS: African American GFR (CKD) >90 (>60 ml/min/1.73 sqM); Anion Gap 1 mmol/L; Blood Urea Nitrogen 5 mg/dL (7-17); Calcium 7.9 mg/dL (8.4-10.2); Carbon Dioxide 29 mmol/L (22-30); Chloride 105 mmol/L (98-107); Glucose 91 mg/dL (74-99); Non-African American GFR(CKD) >90 (>60 ml/min/1.73 sqM); Potassium 3.3 mmol/L (3.5-5.1); Sodium 135 mmol/L (137-145)
[2024-05-16] MEDS: POTASSIUM CHLORIDE ER 20 MEQ TAB.ER PO SCH (05:58)
--- NOTE | 2024-05-16 07:46 | PN ---
PROGRESS NOTE DATE OF SERVICE: 05/15/2024 SUBJECTIVE: This is a 28-year-old woman, who was admitted with diverticulitis and microperforation, also had some fluid overload also, given some Lasix with some improvement. The patient had atelectasis. A repeat CAT scan was done. White count is elevated. Repeat CAT scan showed small bilateral pleural effusions and bibasilar opacities, possible pneumonia, post surgical changes. PAST MEDICAL HISTORY: Reviewed. REVIEW OF SYSTEMS: A 14-point review of systems is negative except as mentioned earlier. OBJECTIVE: VITAL SIGNS: Pulse is 83, blood pressure 130/70, respirations 18. HEENT: Conjunctivae normal. NECK: No jugular venous distention. CARDIOVASCULAR: S1, S2. RESPIRATIONS: Breath sounds diminished at the bases. A few scattered rhonchi. ABDOMEN: Soft, status post surgery. LEGS: No edema. NERVOUS SYSTEM: Nonfocal. LABORATORY DATA: WBC 15.86. Rest of the labs are noted. ASSESSMENT: 1. Acute diverticulitis with microperforation, status post exploratory laparotomy. 2. Elevated WBC. 3. Possible bibasilar infiltrate, atelectasis, pneumonia. 4. Leukocytosis. 5. Hypokalemia. 6. Hypernatremia. 7. Anemia. 8. Wound culture with positive E coli. RECOMMENDATIONS: I recommend to continue current management and current treatment, otherwise incentive spirometry and cut down the fluids. Repeat labs. Supplement potassium. Monitor closely. CAT scan and chest x-ray reviewed. Guarded prognosis. Further recommendations to follow. MMODL / IJN: [id number] /
--- NOTE | 2024-05-16 08:18 | XR ---
EXAMINATION TYPE: XR chest 1V portable DATE OF EXAM: 05/16/2024 6:48 AM COMPARISON: 05/14/2024 CLINICAL INDICATION: Female, 28 years old with history of atelectasis, TECHNIQUE: Single frontal view of the chest is obtained. FINDINGS: There is no focal air space opacity, pleural effusion, or pneumothorax seen. The cardiac silhouette size is within normal limits. The osseous structures are intact. Elevation right hemidia phragm. IMPRESSION: No acute process. [facility], , 05/16/2024 8:15 AM
--- NOTE | 2024-05-16 10:06 | P.PN ---
Subjective Progress Note Date: 05/16/24 SURGICAL PROGRESS NOTE CHIEF COMPLAINT: Perforated sigmoid diverticulitis HISTORY OF PRESENT ILLNESS: Postop day #7 status post exploratory laparotomy, sigmoid colectomy, appendectomy and ostomy creation. Patient reports that she is starting to feel better. Her pain is controlled. Her ostomy is funct ioning.. Patient started having stool through her ostomy last night. Afebrile. WBC trending down from 15-12.7 Hgb 10.1 platelets 553 potassium 3.3 and being replaced. Patient evaluated by IR service regarding the fluid collections on CAT scan. Fluid collections are too small to drain. And the interventional radiologist felt that there were likely due to postsurgical changes. PHYSICAL EXAM: VITAL SIGNS: Reviewed. GENERAL: Well-developed in no acute distress. ABDOMEN: Soft. Nondistended. Midline incision clean dry and intact. Wound VAC placed in place at the distal aspect of the incision. Ostomy with stool present. LASHA drain with minimal serous fluid NEUROLOGIC: Alert and oriented. Cranial nerves II through XII grossly intact. ASSESSMENT: 1. Sigmoid diverticulitis with perforation 2. Surgical site infection 3. Atelectasis 4. Hypokalemia PLAN: -Clean midline incision with chlorhexidine wipe -Continue antibiotics -Continue pain management -Wound VAC to be changed today -Continue regular diet -Ostomy teaching and changed today -Potassium being replaced -Continue antiemetics -Encourage patient increase activity level -Encourage patient to use incentive spirometer -DVT prophylaxis Lovenox and GI prophylaxis Pepcid Physician Cracking Machine Operator note has been reviewed by physician. Signing provider agrees with the documented findings, assessment, and plan of care. Objective - Vital Signs Vital signs: Vital Signs Temp 97.6 F 05/16/24 07:08 Pulse 82 05/16/24 09:08 Resp 18 05/16/24 07:08 BP 133/81 05/16/24 07:08 Pulse Ox 95 05/16/24 09:03 FiO2 Intake & Output 05/15/24 05/16/24 05/16/24 18:59 06:59 18:59 Output Total 40 Balance -40 Weight 104.326 kg Output: Drainage 20 Right Abdomen 20 Stool 20 Other: Voiding Method Toilet Toilet # Voids 1 3 # Bowel Movements 1 - Labs CBC & Chem 7: 05/19/24 03:09 12/23/24 03:09 Labs: Abnormal Lab Results - Last 24 Hours (Table) 05/15/24 05/15/24 05/16/24 Range/Units 03:45 03:45 03:43 WBC 12.7 H (3.8-10.6) k/uL RBC 3.61 L (3.80-5.40) m/uL Hgb 10.1 L (11.4-16.0) gm/dL Hct 31.3 L (34.0-46.0) % Plt Count 553 H (150-450) k/uL Neutrophils # 10.1 H (1.3-7.7) k/uL Neutrophils # (Manual) 12.37 H (1.80-7.70) X 10*3/uL Monocytes # (Manual) 1.74 H (0.20-1.00) X 10*3/uL Eosinophils # (Manual) 0.48 H (0.04-0.35) X 10*3/uL Sodium (137-145) mmol/L Potassium 3.2 L (3.5-5.5) mmol/L BUN 4.6 L (9.0-27.0) mg/dL Creatinine 0.5 L (0.6-1.5) mg/dL BUN/Creatinine Ratio 9.20 L (12.00-20.00) Ratio Calcium 7.6 L (8.7-10.3) mg/dL Total Bilirubin <0.2 L (0.3-1.2) mg/dL Total Protein 5.0 L (6.2-8.2) g/dL Albumin 2.4 L (3.8-4.9) g/dL Albumin/Globulin Ratio 0.92 L (1.60-3.17) Ratio 05/16/24 Range/Units 03:43 WBC (3.8-10.6) k/uL RBC (3.80-5.40) m/uL Hgb (11.4-16.0) gm/dL Hct (34.0-46.0) % Plt Count (150-450) k/uL Neutrophils # (1.3-7.7) k/uL Neutrophils # (Manual) (1.80-7.70) X 10*3/uL Monocytes # (Manual) (0.20-1.00) X 10*3/uL Eosinophils # (Manual) (0.04-0.35) X 10*3/uL Sodium 135 L (137-145) mmol/L Potassium 3.3 L (3.5-5.5) mmol/L BUN 5 L (9.0-27.0) mg/dL Creatinine (0.6-1.5) mg/dL BUN/Creatinine Ratio (12.00-20.00) Ratio Calcium 7.9 L (8.7-10.3) mg/dL Total Bilirubin (0.3-1.2) mg/dL Total Protein (6.2-8.2) g/dL Albumin (3.8-4.9) g/dL Albumin/Globulin Ratio (1.60-3.17) Ratio Microbiology - Last 24 Hours (Table) 05/13/24 11:23 Anaerobic Culture - Preliminary Abdomen Bacteroides fragilis Group Bacteroides ovatus 05/13/24 11:23 Gram Stain - Final Abdomen Wound Culture - Final Escherichia coli Assessment and Plan Assessment: ct reviewed, no drainable abscess, source control through wound vac. wbc trending down. AFebrile. Time with Patient: Greater than 30
--- NOTE | 2024-05-17 03:04 | PN ---
PROGRESS NOTE DATE OF SERVICE: 05/16/2024 SUBJECTIVE: This is a 28-year-old woman, who was admitted after diverticulitis perforation and surgery. No chest pain. No palpitations. No fever. Wound VAC showed minimal drainage. OBJECTIVE: VITAL SIGNS: Pulse is 89, blood pressure 130/73, respirations 16. CHEST: Clear to auscultation. CARDIOVASCULAR: S1, S2. ABDOMEN: Soft, status post surgery. LABORATORY DATA: WBC 12.7. The cultures are Bacteroides fragilis and E coli. ASSESSMENT: 1. Acute diverticulitis with microperforation, status post exploratory laparotomy. 2. Status post wound VAC on the abdominal wound. 3. Bacteroides fragilis and ovatus from the wound cultures. 4. Possible bibasilar infiltrate, possible atelectasis. 5. Elevated WBC, improved. 6. Hypokalemia. 7. Hyponatremia. 8. Multiple complex medical issues. RECOMMENDATIONS AND DISCUSSION: Recommend to continue current management and continue symptomatic treatment. Otherwise, at this time, continue with IV antibiotics and DVT prophylaxis. Closely follow with Infectious Disease and Surgery. Prognosis guarded. Further recommendations to follow. MMODL / IJN: [id number] /
--- NOTE | 2024-05-17 03:45 | P.PN ---
Progress Note - Text Progress Note Date: 05/17/24 CHIEF COMPLAINT: Perforated sigmoid diverticulitis HISTORY OF PRESENT ILLNESS: Postop day #8 status post exploratory laparotomy, sigmoid colectomy, appendectomy and ostomy creation. No acute events overnight. Her pain is controlled. Her ostomy is functioning. She is tolerating her diet. PHYSICAL EXAM: VITAL SIGNS: Reviewed. GENERAL: Well-developed in no acute distress. ABDOMEN: Soft. Nondistended. Midline incision clean dry and intact. Wound VAC placed in place at the distal aspect of the incision. Ostomy with stool present. LASHA drain with minimal serous fluid NEUROLOGIC: Alert and oriented. Cranial nerves II through XII grossly intact. ASSESSMENT: 1. Sigmoid diverticulitis with perforation 2. Surgical site infection 3. Atelectasis 4. Hypokalemia PLAN: -Clean midline incision with chlorhexidine wipe -Continue antibiotics -Continue pain management -Continue Wound Vac -Continue regular diet -Ostomy teaching -Continue antiemetics -Encourage patient increase activity level -Encourage patient to use incentive spirometer -DVT prophylaxis Lovenox and GI prophylaxis Ashley Quiñonez DO [facility] [phone]
[2024-05-17 10:55] LABS: Basophils # (A) 0.06 X 10*3/uL (0.00-0.10); Basophils % (A) 0.5 %; Eosinophils # (A) 0.22 X 10*3/uL (0.04-0.35); Eosinophils % (A) 1.7 %; HGB 9.4 g/dL (12.0-15.0); Lymphocytes # (A) 2.12 X 10*3/uL (0.90-5.00); Lymphocytes % (A) 16.2 %; MCHC 32.4 g/dL (32.0-37.0); MCV 86.3 FL (80.0-97.0); Mean Platelet Volume 8.8 FL (9.5-12.2); Monocytes # (A) 0.99 X 10*3/uL (0.20-1.00); Monocytes % (A) 7.5 %; NRBC Per 100 WBC 0 X 10*3/uL (0.00-0.01); Neutrophils # (A) 9.22 X 10*3/uL (1.80-7.70); Neutrophils % (A) 70.2 %; Platelet Count 548 X 10*3/uL (140-440); RBC 3.36 X 10*6/uL (4.10-5.20); WBC 13.12 X 10*3/uL (4.50-10.00)
[2024-05-17 13:08] LABS: ALT 34 U/L (8-44); AST 38 U/L (13-35); Albumin 2.6 g/dL (3.8-4.9); Alkaline Phosphatase 70 U/L (41-126); Calcium 7.9 mg/dL (8.7-10.3); Carbon Dioxide 23.3 mmol/L (21.6-31.8); Chloride 105 mmol/L (96-109); Globulin 2.6 g/dL (1.6-3.3); Glucose 89 mg/dL (70-110); Potassium 4.4 mmol/L (3.5-5.5); Sodium 137 mmol/L (135-145); Total Bilirubin <0.2 mg/dL (0.3-1.2); Total Protein 5.2 g/dL (6.2-8.2)
--- NOTE | 2024-05-17 15:08 | P.PN ---
Subjective Progress Note Date: 05/17/24 Principal diagnosis: Reason for follow-up is leukocytosis and abdominal abscess Patient is a 28-year-old female with no significant past medical history presenting to the hospital with abdominal pain has been diagnosed with perforated diverticulitis status post laparotomy and diverting colostomy patient did have worsening of the white count a week after admission to the hospital prompted this consultation. On today's evaluation that is 05/17/2024, patient did not have any fever and denies any chills, patient is breathing comfortably on room air, patient with no chest pain or cough patient abdominal pain is currently controlled no vomiting. Patient white count slightly up to 13.1 today, creatinine 0.5 Objective - Vital Signs Vital signs: Vital Signs Temp 98.4 F 05/17/24 13:45 Pulse 84 05/17/24 13:45 Resp 17 05/17/24 13:45 BP 126/83 05/17/24 13:45 Pulse Ox 94 L 05/17/24 13:45 FiO2 Intake & Output 05/16/24 05/17/24 05/17/24 18:59 06:59 18:59 Intake Total 540 Output Total 2 10 0 Balance -2 530 0 Intake: Oral 540 Output: Drainage 2 0 Right Abdomen 2 0 Stool 10 Other: Voiding Method Toilet Toilet Toilet # Voids 3 # Bowel Movements 1 - Exam GENERAL DESCRIPTION: Middle-age female up in the chair in no distress RESPIRATORY SYSTEM: Unlabored breathing , decreased breath sounds at bases HEART: S1 S2 regular rate and rhythm , ABDOMEN: Soft , no significant tenderness EXTREMITIES: No edema feet - Labs CBC & Chem 7: 05/17/24 03:50 05/17/24 03:50 Labs: Abnormal Lab Results - Last 24 Hours (Table) 05/17/24 05/17/24 Range/Units 03:50 03:50 WBC 13.12 H (4.50-10.00) X 10*3/uL RBC 3.36 L (4.10-5.20) X 10*6/uL Hgb 9.4 L (12.0-15.0) g/dL Hct 29.0 L (37.2-46.3) % Plt Count 548 H (140-440) X 10*3/uL MPV 8.8 L (9.5-12.2) FL Immature Gran # 0.51 H (0.00-0.04) X 10*3/uL Neutrophils # 9.22 H (1.80-7.70) X 10*3/uL BUN 5.0 L (9.0-27.0) mg/dL Creatinine 0.5 L (0.6-1.5) mg/dL BUN/Creatinine Ratio 10.00 L (12.00-20.00) Ratio Calcium 7.9 L (8.7-10.3) mg/dL Total Bilirubin <0.2 L (0.3-1.2) mg/dL AST 38 H (13-35) U/L Total Protein 5.2 L (6.2-8.2) g/dL Albumin 2.6 L (3.8-4.9) g/dL Albumin/Globulin Ratio 1.00 L (1.60-3.17) Ratio Microbiology - Last 24 Hours (Table) 05/13/24 11:23 Anaerobic Culture - Final Abdomen Actinomyces turicensis Bacteroides fragilis Group Bacteroides ovatus Assessment and Plan (1) Sepsis Current Visit: Yes Status: Acute Code(s): A41.9 - SEPSIS, UNSPECIFIED ORGANISM SNOMED Code(s): 44967010 (2) Perforation of sigmoid colon due to diverticulitis Current Visit: Yes Status: Acute Code(s): K57.20 - DVTRCLI OF LG INT W PERFORATION AND ABSCESS W/O BLEEDING SNOMED Code(s): 6372378920681009 Plan: 1patient presented to hospital with sepsis in this patient who did have fever tachycardia elevated white count source is perforated sigmoid diverticulitis in this patient who is status post laparotomy sigmoid colectomy appendectomy and end colostomy 2-patient noticed to have worsening of the white count and is also have some drainage from lower end of incision which has been culture, initial abdominal culture have been finalized with E. coli that is a sensitive admission however also growing bacteroids fragilis and may not have been covered with Zosyn could be responsible for this elevated white count 3patient is afebrile white count slightly up today compared to yesterday will monitor closely CT abdominal pelvis did not show any intra-abdominal abscess 4we will continue Unasyn and Flagyl while inpatient and monitor clinical course closely Dictation was produced using [employer] dictation software. please excuse any grammatical, word or spelling errors. Time with Patient: Less than 30
--- NOTE | 2024-05-17 15:08 | P.PN ---
Subjective Progress Note Date: 05/16/24 Principal diagnosis: Reason for follow-up is leukocytosis and abdominal abscess Patient is a 28-year-old female with no significant past medical history presenting to the hospital with abdominal pain has been diagnosed with perforated diverticulitis status post laparotomy and diverting colostomy patient did have worsening of the white count a week after admission to the hospital prompted this consultation. On today's evaluation that is 05/16/2024, the patient continues to be afebrile, the patient is on room air and breathing comfortably, the Pt denies having any chest pain or cough, the patient denies having any vomiting abdominal pain is currently controlled. The patient white count is down to 12.7 creatinine 0.56 Objective - Vital Signs Vital signs: Vital Signs Temp 97.6 F 05/16/24 07:08 Pulse 82 05/16/24 09:08 Resp 18 05/16/24 07:08 BP 133/81 05/16/24 07:08 Pulse Ox 95 05/16/24 09:03 FiO2 Intake & Output 05/15/24 05/16/24 05/16/24 18:59 06:59 18:59 Output Total 40 Balance -40 Weight 104.326 kg Output: Drainage 20 Right Abdomen 20 Stool 20 Other: Voiding Method Toilet Toilet # Voids 1 3 # Bowel Movements 1 - Exam GENERAL DESCRIPTION: Middle-age female up in the chair in no distress RESPIRATORY SYSTEM: Unlabored breathing , decreased breath sounds at bases HEART: S1 S2 regular rate and rhythm , ABDOMEN: Soft , no significant tenderness EXTREMITIES: No edema feet - Labs CBC & Chem 7: 05/17/24 03:50 05/17/24 03:50 Labs: Abnormal Lab Results - Last 24 Hours (Table) 05/16/24 05/16/24 Range/Units 03:43 03:43 WBC 12.7 H (3.8-10.6) k/uL RBC 3.61 L (3.80-5.40) m/uL Hgb 10.1 L (11.4-16.0) gm/dL Hct 31.3 L (34.0-46.0) % Plt Count 553 H (150-450) k/uL Neutrophils # 10.1 H (1.3-7.7) k/uL Sodium 135 L (137-145) mmol/L Potassium 3.3 L (3.5-5.1) mmol/L BUN 5 L (7-17) mg/dL Calcium 7.9 L (8.4-10.2) mg/dL Microbiology - Last 24 Hours (Table) 05/13/24 11:23 Anaerobic Culture - Preliminary Abdomen Bacteroides fragilis Group Bacteroides ovatus 05/13/24 11:23 Gram Stain - Final Abdomen Wound Culture - Final Escherichia coli Assessment and Plan (1) Sepsis Current Visit: Yes Status: Acute Code(s): A41.9 - SEPSIS, UNSPECIFIED ORGANISM SNOMED Code(s): 97100546 (2) Perforation of sigmoid colon due to diverticulitis Current Visit: Yes Status: Acute Code(s): K57.20 - DVTRCLI OF LG INT W PERFORATION AND ABSCESS W/O BLEEDING SNOMED Code(s): 5975645255634492 Plan: 1patient presented to hospital with sepsis in this patient who did have fever tachycardia elevated white count source is perforated sigmoid diverticulitis in this patient who is status post laparotomy sigmoid colectomy appendectomy and end colostomy 2-patient noticed to have worsening of the white count and is also have some drainage from lower end of incision which has been culture, initial abdominal culture have been finalized with E. coli that is a sensitive admission however also growing bacteroids fragilis and may not have been covered with Zosyn could be responsible for this elevated white count 3patient did have improvement her white count which is down to 12,000, CT abdominal pelvis did not show any intra-abdominal abscess 4we will continue Unasyn and Flagyl and monitor clinical course closely multiple question concern answered Dictation was produced using [employer] dictation software. please excuse any grammatical, word or spelling errors. Time with Patient: Less than 30
[2024-05-17] MEDS: KETOROLAC 15 MG/ML 1 ML VIAL IVP SCH (17:57)
--- NOTE | 2024-05-17 18:13 | P.PN ---
Subjective Progress Note Date: 05/17/24 28-year-old female with no significant past medical history presenting to the hospital with abdominal pain has been diagnosed with perforated diverticulitis status post laparotomy and diverting colostomy patient did have worsening of the white count a week after admission to the hospital prompted this consultation. On today's evaluation that is 05/17/2024, patient did not have any fever and de nies any chills, patient is breathing comfortably on room air, patient with no chest pain or cough patient abdominal pain is currently controlled no vomiting. Patient white count slightly up to 13.1 today, creatinine 0.5 Objective - Vital Signs Vital signs: Vital Signs Temp 98.4 F 05/17/24 07:05 Pulse 76 05/17/24 09:46 Resp 17 05/17/24 07:05 BP 119/76 05/17/24 07:05 Pulse Ox 95 05/17/24 07:05 FiO2 Intake & Output 05/16/24 05/17/24 05/17/24 18:59 06:59 18:59 Intake Total 540 Output Total 2 10 0 Balance -2 530 0 Intake: Oral 540 Output: Drainage 2 0 Right Abdomen 2 0 Stool 10 Other: Voiding Method Toilet Toilet Toilet # Voids 3 # Bowel Movements 1 - Exam GENERAL DESCRIPTION: Middle-age female up in the chair in no distress RESPIRATORY SYSTEM: Unlabored breathing , decreased breath sounds at bases HEART: S1 S2 regular rate and rhythm , ABDOMEN: Soft , no significant tenderness EXTREMITIES: No edema feet - Labs CBC & Chem 7: 05/17/24 03:50 05/17/24 03:50 Labs: Abnormal Lab Results - Last 24 Hours (Table) 05/17/24 Range/Units 03:50 WBC 13.12 H (4.50-10.00) X 10*3/uL RBC 3.36 L (4.10-5.20) X 10*6/uL Hgb 9.4 L (12.0-15.0) g/dL Hct 29.0 L (37.2-46.3) % Plt Count 548 H (140-440) X 10*3/uL MPV 8.8 L (9.5-12.2) FL Immature Gran # 0.51 H (0.00-0.04) X 10*3/uL Neutrophils # 9.22 H (1.80-7.70) X 10*3/uL Microbiology - Last 24 Hours (Table) 05/13/24 11:23 Anaerobic Culture - Final Abdomen Actinomyces turicensis Bacteroides fragilis Group Bacteroides ovatus Assessment and Plan Assessment: Acute diverticulitis with microperforation, status post exploratory laparotomy Status post wound VAC placement on anterior abdominal wall Infected wound with bacteroids fragilis and await this Possible bibasilar infiltrate Hyponatremia/hypokalemia 1patient presented to hospital with sepsis in this patient who did have fever tachycardia elevated white count source is perforated sigmoid diverticulitis in this patient who is status post laparotomy sigmoid colectomy appendectomy and end colostomy 2-patient noticed to have worsening of the white count and is also have some drainage from lower end of incision which has been culture, initial abdominal culture have been finalized with E. coli that is a sensitive admission however also growing bacteroids fragilis and may not have been covered with Zosyn could be responsible for this elevated white count 3patient is afebrile white count slightly up today compared to yesterday will monitor closely CT abdominal pelvis did not show any intra-abdominal abscess 4we will continue Unasyn and Flagyl while inpatient and monitor clinical course closely
[2024-05-17] MEDS: methocarbamoL 500 MG TAB PO SCH (21:43)
--- NOTE | 2024-05-18 08:24 | P.PN ---
Progress Note - Text Progress Note Date: 05/18/24 CHIEF COMPLAINT: Perforated sigmoid diverticulitis HISTORY OF PRESENT ILLNESS: Postop day #9 status post exploratory laparotomy, sigmoid colectomy, appendectomy and ostomy creation. No acute events overnight. Her pain is controlled. Her ostomy is functioning. She is tolerating her diet. PHYSICAL EXAM: VITAL SIGNS: Reviewed. GENERAL: Well-developed in no acute distress. ABDOMEN: Soft. Nondistended. Midline incision clean dry and intact. Wound VAC placed in place at the distal aspect of the incision. Ostomy with stool present. LASHA drain with minimal serous fluid NEUROLOGIC: Alert and oriented. Cranial nerves II through XII grossly intact. ASSESSMENT: 1. Sigmoid diverticulitis with perforation 2. Surgical site infection 3. Atelectasis 4. Hypokalemia PLAN: - AM labs pending -Continue Unasyn/Flagyl, follow up ID recs -Continue pain management -Continue Wound Vac -Continue regular diet -Ostomy teaching -Continue antiemetics -Encourage patient increase activity level -Encourage patient to use incentive spirometer -DVT prophylaxis Lovenox and GI prophylaxis Ashley Quiñonez DO [facility] [phone]
[2024-05-18 08:40] LABS: Basophils # (A) 0.1 k/uL (0-0.2); Basophils % (A) 1 %; Eosinophils # (A) 0.4 k/uL (0-0.7); Eosinophils % (A) 3 %; HGB 11.2 gm/dL (11.4-16.0); Lymphocytes # (A) 1.9 k/uL (1.0-4.8); Lymphocytes % (A) 16 %; MCH 28.1 pg (25.0-35.0); MCV 87.7 fL (80.0-100.0); Mean Platelet Volume 7.1; Monocytes # (A) 0.6 k/uL (0-1.0); Monocytes % (A) 5 %; Neutrophils % (A) 73 %; Platelet Count 722 k/uL (150-450); RBC 3.99 m/uL (3.80-5.40); WBC 12.3 k/uL (3.8-10.6)
[2024-05-18] MEDS ORDERED: methocarbamoL 500 MG TAB PO SCH (09:00)
[2024-05-18 09:07] LABS: African American GFR (CKD) >90 (>60 ml/min/1.73 sqM); Anion Gap 8 mmol/L; Blood Urea Nitrogen 5 mg/dL (7-17); Calcium 8.6 mg/dL (8.4-10.2); Carbon Dioxide 22 mmol/L (22-30); Chloride 105 mmol/L (98-107); Glucose 89 mg/dL (74-99); Non-African American GFR(CKD) >90 (>60 ml/min/1.73 sqM); Potassium 4.8 mmol/L (3.5-5.1); Sodium 135 mmol/L (137-145)
[2024-05-18] MEDS: ACETAMINOPHEN TAB 500 MG TAB PO PRN (11:06)
--- NOTE | 2024-05-18 16:31 | P.PN ---
Subjective Progress Note Date: 05/18/24 28-year-old female with no significant past medical history presenting to the hospital with abdominal pain has been diagnosed with perforated diverticulitis status post laparotomy and diverting colostomy patient did have worsening of the white count a week after admission to the hospital prompted this consultation. On today's evaluation that is 05/17/2024, patient did not have any fever and de nies any chills, patient is breathing comfortably on room air, patient with no chest pain or cough patient abdominal pain is currently controlled no vomiting. Patient white count slightly up to 13.1 today, creatinine 0.5 24-hour interval change 05/18/2024 Patient seen and evaluated in room at bedside; WITH nursing staff; no specific complaints reported Signs are reviewed and remained stable Lab review shows WBC of 12.3, hemoglobin of 11.5 platelet count of 722, sodium 135, potassium 4.8, BUNs/creatinine of 5/0.58 -patient presented to hospital with sepsis in this patient who did have fever tachycardia elevated white count source is perforated sigmoid diverticulitis in this patient who is status post laparotomy sigmoid colectomy appendectomy and end colostomy --patient noticed to have worsening of the white count and is also have some drainage from lower end of incision which has been culture, initial abdominal culture have been finalized with E. coli that is a sensitive admission however also growing bacteroids fragilis and may not have been covered with Zosyn could be responsible for this elevated white count --patient is afebrile white count slightly up today compared to yesterday will monitor closely CT abdominal pelvis did not show any intra-abdominal abscess ---we will continue Unasyn and Flagyl while inpatient and monitor clinical course closely Objective - Vital Signs Vital signs: Vital Signs Temp 98.4 F 05/18/24 07:07 Pulse 102 H 05/18/24 10:43 Resp 16 05/18/24 10:43 BP 124/74 05/18/24 07:07 Pulse Ox 98 05/18/24 08:58 FiO2 Intake & Output 05/17/24 05/18/24 05/18/24 18:59 06:59 18:59 Intake Total 240 200 Output Total 0 25 20 Balance 0 215 180 Intake: Oral 240 200 Output: Drainage 0 5 Right Abdomen 0 5 Stool 20 20 Other: Voiding Method Toilet Toilet Toilet # Voids 3 # Bowel Movements 1 - Exam GENERAL DESCRIPTION: Middle-age female up in the chair in no distress RESPIRATORY SYSTEM: Unlabored breathing , decreased breath sounds at bases HEART: S1 S2 regular rate and rhythm , ABDOMEN: Soft , no significant tenderness EXTREMITIES: No edema feet - Labs CBC & Chem 7: 05/18/24 08:33 05/18/24 08:33 Labs: Abnormal Lab Results - Last 24 Hours (Table) 05/17/24 05/18/24 05/18/24 Range/Units 03:50 08:33 08:33 WBC 12.3 H (3.8-10.6) k/uL Hgb 11.2 L (11.4-16.0) gm/dL Plt Count 722 H (150-450) k/uL Neutrophils # 9.0 H (1.3-7.7) k/uL Sodium 135 L (137-145) mmol/L BUN 5.0 L 5 L (9.0-27.0) mg/dL Creatinine 0.5 L (0.6-1.5) mg/dL BUN/Creatinine Ratio 10.00 L (12.00-20.00) Ratio Calcium 7.9 L (8.7-10.3) mg/dL Total Bilirubin <0.2 L (0.3-1.2) mg/dL AST 38 H (13-35) U/L Total Protein 5.2 L (6.2-8.2) g/dL Albumin 2.6 L (3.8-4.9) g/dL Albumin/Globulin Ratio 1.00 L (1.60-3.17) Ratio Microbiology - Last 24 Hours (Table) 05/13/24 11:23 Anaerobic Culture - Final Abdomen Actinomyces turicensis Bacteroides fragilis Group Bacteroides ovatus Assessment and Plan Assessment: Acute diverticulitis with microperforation, status post exploratory laparotomy Status post wound VAC placement on anterior abdominal wall Infected wound with bacteroids fragilis and await this Possible bibasilar infiltrate Hyponatremia/hypokalemia 1patient presented to hospital with sepsis in this patient who did have fever tachycardia elevated white count source is perforated sigmoid diverticulitis in this patient who is status post laparotomy sigmoid colectomy appendectomy and end colostomy 2-patient noticed to have worsening of the white count and is also have some drainage from lower end of incision which has been culture, initial abdominal culture have been finalized with E. coli that is a sensitive admission however also growing bacteroids fragilis and may not have been covered with Zosyn could be responsible for this elevated white count 3patient is afebrile white count slightly up today compared to yesterday will monitor closely CT abdominal pelvis did not show any intra-abdominal abscess 4we will continue Unasyn and Flagyl while inpatient and monitor clinical course closely
--- NOTE | 2024-05-19 07:59 | P.PN ---
Subjective Progress Note Date: 05/18/24 Principal diagnosis: Reason for follow-up is leukocytosis and abdominal abscess Patient is a 28-year-old female with no significant past medical history presenting to the hospital with abdominal pain has been diagnosed with perforated diverticulitis status post laparotomy and diverting colostomy patient did have worsening of the white count a week after admission to the hospital prompted this consultation. On today's evaluation that is 05/18/2024, Patient is afebrile patient is currently on room air and denies having any shortness of breath, the patient denies any chest pain or cough, the patient denies any nausea vomiting abdominal pain is currently controlled. The patient white count is down to 12.3 creatinine 0.58 abdominal culture with E. coli actinomyces bacteroids Objective - Vital Signs Vital signs: Vital Signs Temp 98.4 F 05/18/24 07:07 Pulse 68 05/18/24 09:08 Resp 16 05/18/24 09:08 BP 124/74 05/18/24 07:07 Pulse Ox 98 05/18/24 08:58 FiO2 Intake & Output 05/17/24 05/18/24 05/18/24 18:59 06:59 18:59 Intake Total 240 Output Total 0 25 Balance 0 215 Intake: Oral 240 Output: Drainage 0 5 Right Abdomen 0 5 Stool 20 Other: Voiding Method Toilet Toilet # Voids 3 # Bowel Movements 1 - Exam GENERAL DESCRIPTION: Middle-age female up in the chair in no distress RESPIRATORY SYSTEM: Unlabored breathing , decreased breath sounds at bases HEART: S1 S2 regular rate and rhythm , ABDOMEN: Soft , no significant tenderness EXTREMITIES: No edema feet - Labs CBC & Chem 7: 05/18/24 08:33 05/18/24 08:33 Labs: Abnormal Lab Results - Last 24 Hours (Table) 05/17/24 05/17/24 05/18/24 Range/Units 03:50 03:50 08:33 WBC 13.12 H 12.3 H (4.50-10.00) X 10*3/uL RBC 3.36 L (4.10-5.20) X 10*6/uL Hgb 9.4 L 11.2 L (12.0-15.0) g/dL Hct 29.0 L (37.2-46.3) % Plt Count 548 H 722 H (140-440) X 10*3/uL MPV 8.8 L (9.5-12.2) FL Immature Gran # 0.51 H (0.00-0.04) X 10*3/uL Neutrophils # 9.22 H 9.0 H (1.80-7.70) X 10*3/uL Sodium (137-145) mmol/L BUN 5.0 L (9.0-27.0) mg/dL Creatinine 0.5 L (0.6-1.5) mg/dL BUN/Creatinine Ratio 10.00 L (12.00-20.00) Ratio Calcium 7.9 L (8.7-10.3) mg/dL Total Bilirubin <0.2 L (0.3-1.2) mg/dL AST 38 H (13-35) U/L Total Protein 5.2 L (6.2-8.2) g/dL Albumin 2.6 L (3.8-4.9) g/dL Albumin/Globulin Ratio 1.00 L (1.60-3.17) Ratio 05/18/24 Range/Units 08:33 WBC (4.50-10.00) X 10*3/uL RBC (4.10-5.20) X 10*6/uL Hgb (12.0-15.0) g/dL Hct (37.2-46.3) % Plt Count (140-440) X 10*3/uL MPV (9.5-12.2) FL Immature Gran # (0.00-0.04) X 10*3/uL Neutrophils # (1.80-7.70) X 10*3/uL Sodium 135 L (137-145) mmol/L BUN 5 L (9.0-27.0) mg/dL Creatinine (0.6-1.5) mg/dL BUN/Creatinine Ratio (12.00-20.00) Ratio Calcium (8.7-10.3) mg/dL Total Bilirubin (0.3-1.2) mg/dL AST (13-35) U/L Total Protein (6.2-8.2) g/dL Albumin (3.8-4.9) g/dL Albumin/Globulin Ratio (1.60-3.17) Ratio Microbiology - Last 24 Hours (Table) 05/13/24 11:23 Anaerobic Culture - Final Abdomen Actinomyces turicensis Bacteroides fragilis Group Bacteroides ovatus Assessment and Plan (1) Sepsis Current Visit: Yes Status: Acute Code(s): A41.9 - SEPSIS, UNSPECIFIED ORGANISM SNOMED Code(s): 73270538 (2) Perforation of sigmoid colon due to diverticulitis Current Visit: Yes Status: Acute Code(s): K57.20 - DVTRCLI OF LG INT W PERFORATION AND ABSCESS W/O BLEEDING SNOMED Code(s): 2860560577763992 Plan: 1patient presented to hospital with sepsis in this patient who did have fever tachycardia elevated white count source is perforated sigmoid diverticulitis in this patient who is status post laparotomy sigmoid colectomy appendectomy and end colostomy 2-patient noticed to have worsening of the white count and is also have some drainage from lower end of incision which has been culture, initial abdominal culture have been finalized with E. coli that is a sensitive admission however also growing bacteroids fragilis and may not have been covered with Zosyn could be responsible for this elevated white count 3patient is afebrile white count is trending down CT abdominal pelvis did not show any intra-abdominal abscess 4we will continue Unasyn and Flagyl while inpatient and transition to oral antibiotic on discharge Dictation was produced using [employer] dictation software. please excuse any grammatical, word or spelling errors. Time with Patient: Less than 30
[2024-05-19 08:40] LABS: Blood Urea Nitrogen 6.3 mg/dL (9.0-27.0); Calcium 8.2 mg/dL (8.7-10.3); Carbon Dioxide 23.5 mmol/L (21.6-31.8); Chloride 104 mmol/L (96-109); Glucose 89 mg/dL (70-110); Potassium 4.4 mmol/L (3.5-5.5); Sodium 137 mmol/L (135-145)
[2024-05-19 09:16] LABS: Basophils # (A) 0.05 X 10*3/uL (0.00-0.10); Basophils % (A) 0.4 %; Eosinophils # (A) 0.35 X 10*3/uL (0.04-0.35); Eosinophils % (A) 3.1 %; HCT 30.8 % (37.2-46.3); HGB 9.8 g/dL (12.0-15.0); Lymphocytes # (A) 2.13 X 10*3/uL (0.90-5.00); Lymphocytes % (A) 18.9 %; MCH 27.8 pg (27.0-32.0); MCHC 31.8 g/dL (32.0-37.0); MCV 87.5 FL (80.0-97.0); Mean Platelet Volume 8.4 FL (9.5-12.2); Monocytes # (A) 1.01 X 10*3/uL (0.20-1.00); NRBC Per 100 WBC 0 X 10*3/uL (0.00-0.01); Neutrophils # (A) 7.31 X 10*3/uL (1.80-7.70); Platelet Count 605 X 10*3/uL (140-440); RBC 3.52 X 10*6/uL (4.10-5.20); RDW 14.1 % (11.5-14.5); WBC 11.25 X 10*3/uL (4.50-10.00)
--- NOTE | 2024-05-19 13:58 | P.PN ---
Subjective Progress Note Date: 05/19/24 Patient seen and examined at bedside. Overall, appears to be doing well. Ostomy is functioning. Pain well-controlled. Patient is nervous about going home. Objective - Vital Signs Vital signs: Vital Signs Temp 98.3 F 05/19/24 07:55 Pulse 80 05/19/24 12:50 Resp 19 05/19/24 07:55 BP 129/79 05/19/24 07:55 Pulse Ox 96 05/19/24 07:55 FiO2 Intake & Output 05/18/24 05/19/24 05/19/24 18:59 06:59 18:59 Intake Total 400 Output Total 20 2 Balance 380 -2 Intake: Oral 400 Output: Drainage 2 Right Abdomen 2 Stool 20 Other: Voiding Method Toilet Toilet # Voids 7 3 # Bowel Movements 0 - Constitutional General appearance: Present: cooperative, no acute distress - Respiratory Details: No difficulty with respiration - Gastrointestinal Gastrointestinal Comment(s): Soft, nontender, nondistended, midline incision healing well with wound VAC in place at inferior portion of incision, ostomy pink and patent with function, LASHA drain in place - Psychiatric Psychiatric: Present: A&O x's 3 - Labs CBC & Chem 7: 05/19/24 03:09 05/19/24 03:09 Labs: Abnormal Lab Results - Last 24 Hours (Table) 05/19/24 05/19/24 Range/Units 03:09 03:09 WBC 11.25 H (4.50-10.00) X 10*3/uL RBC 3.52 L (4.10-5.20) X 10*6/uL Hgb 9.8 L (12.0-15.0) g/dL Hct 30.8 L (37.2-46.3) % MCHC 31.8 L (32.0-37.0) g/dL Plt Count 605 H (140-440) X 10*3/uL MPV 8.4 L (9.5-12.2) FL Immature Gran # 0.40 H (0.00-0.04) X 10*3/uL Monocytes # 1.01 H (0.20-1.00) X 10*3/uL BUN 6.3 L (9.0-27.0) mg/dL BUN/Creatinine Ratio 10.50 L (12.00-20.00) Ratio Calcium 8.2 L (8.7-10.3) mg/dL Assessment and Plan Plan: 28-year-old female status post Wilkinson's procedure. Ostomy appears to be functioning well. Continue with wound VAC at this time. LASHA likely to be removed prior to patient's discharge. I did discuss patient's discharge with her with anticipation in the next 24 to 48 hours. She is working with case management on home care and wound VAC as she is uninsured. Continue current management. Continue antibiotics per infectious disease.
[2024-05-19] MEDS: methocarbamoL 750 MG TAB PO SCH (16:46)
--- NOTE | 2024-05-19 23:08 | P.OP ---
Date of Procedure: 05/08/24 Preoperative Diagnosis: diverticulitis Postoperative Diagnosis: perforated diverticulitis Procedure(s) Performed: exploratory laparotomy with sigmoid resection, appendectomy, and pee drain placement, and colostomy creation. Anesthesia: TAMMY Surgeon: Yossi Bowling Estimated Blood Loss (ml): 50 Pathology: none sent Condition: stable Disposition: PACU Indications for Procedure: perforated colon Operative Findings: perforated colon and gross stool. Description of Procedure: Patient was brought to the operating suite where he was cleaned and draped in sterile fashion. Everyone agreed with the information recited. A #10 blade was then used to make a midline incision and electocautery was used to dissect down through the peritoneum. A large amount of stool was immediately encountered. This was irrigated and suctioned. There was a dime-sized hole encountered in the sigmoid colon. . A santiago was placed on this defect and the rest of the abdomen was then explored. The small bowel was ran from the ligament of treitz to the cecum where I encountered and inflammed/ashened zimmerman appendix. The cecum also appear to be inflamed likely secondary to prolonged exposure to stool. The remaining colon was observed extensive diverticulosis was observed throughout the entire colon. I then turned my attention to mobilizing the sigmoid and rectum. The sigmoid colon appeared to be thickened and inflammed at the level of the sacral promotory and proximal. This was isolated and removed with a endo EVELINA staple load. Once the specimen was removed from the abdomen, I turned my attention back to the appendix and given gross stool and propensity to form adhesions after this disease process, this was removed using an endo EVELINA staple load. The abdomen was then irrigated again with greater than 3L of saline. I created a hole in the abdominal wall for the colostomy. The sigmod colon was pulled through and a santiago was placed on the end. I placed a pee drain in the pelvis. The midline was closed using 1-0 looped pds in a cephalad to caudad and caudad to cephalad fashion. The skin was closed using boris. Next the colostomy was created using 3-0 vicryl suture in a brooking fashion creating a nice [place]. The skin was covered with a prevena. the patient was transferred to pacu in stable condition.
--- NOTE | 2024-05-20 06:48 | P.PN ---
Subjective Progress Note Date: 05/19/24 28-year-old female with no significant past medical history presenting to the hospital with abdominal pain has been diagnosed with perforated diverticulitis status post laparotomy and diverting colostomy patient did have worsening of the white count a week after admission to the hospital prompted this consultation. On today's evaluation that is 05/17/2024, patient did not have any fever and denies any chills, patient is breathing comfortably on room air, patient with no chest pain or cough patient abdominal pain is currently controlled no vomiting. Patient white count slightly up to 13.1 today, creatinine 0.5 24-hour interval change 05/18/2024 Patient seen and evaluated in room at bedside; WITH nursing staff; no specific complaints reported Signs are reviewed and remained stable Lab review shows WBC of 12.3, hemoglobin of 11.5 platelet count of 722, sodium 135, potassium 4.8, BUNs/creatinine of 5/0.58 -patient presented to hospital with sepsis in this patient who did have fever tachycardia elevated white count source is perforated sigmoid diverticulitis in this patient who is status post laparotomy sigmoid colectomy appendectomy and end colostomy --patient noticed to have worsening of the white count and is also have some drainage from lower end of incision which has been culture, initial abdominal culture have been finalized with E. coli that is a sensitive admission however also growing bacteroids fragilis and may not have been covered with Zosyn could be responsible for this elevated white count --patient is afebrile white count slightly up today compared to yesterday will monitor closely CT abdominal pelvis did not show any intra-abdominal abscess ---we will continue Unasyn and Flagyl while inpatient and monitor clinical course closely 05/19/2024 Patient is seen in follow-up today, continues with ostomy training and is having stool in the ostomy tolerating regular diet. Patient is maintained on IV antibiotics with infectious disease following and will transition to oral antibiotics on discharge. Case management is following attempting to arrange for wound VAC for patient on discharge. Patient currently has no insurance and also working with possible Medicaid and other resources to help pay for the wound VAC. Patient is afebrile and white count is trending down. Patient has been up and walking and has been encouraged to continue to do so and sit up in the chair more frequently. Encouraged incentive spirometer use at least 10 times every hour while awake. Per surgery plans on discharge home tomorrow. Review of systems: Constitutional: No reports of fatigue, fever, or chills Cardiovascular: No reports of chest pain or palpitations Respiratory: No reports of shortness of breath or cough GI: No reports of nausea, vomiting, or diarrhea, reports some abdominal discomfort : No reports of dysuria or retention Neurovascular: No reports of weakness or numbness All medications have been reviewed Physical exam: Gen: This is a 28-year-old female who is awake, alert and oriented x 3, well- developed, obese, appears older than stated age HEENT: Head is atraumatic, normocephalic. Pupils equal, round. Sclerae is anicteric. NECK: Supple. No JVD. No lymphadenopathy. No thyromegaly. LUNGS: Diminished breath sounds bilaterally otherwise clear to auscultation. No wheezes or rhonchi. No intercostal retractions. HEART: S1, S2 are muffled ABDOMEN: Soft. Obese bowel sounds are present. No masses. No tenderness. Ostomy noted with stool and wound VAC EXTREMITIES: No pedal edema. No calf tenderness. NEUROLOGICAL: Patient is awake, alert and oriented x3. Cranial nerves 2 through 12 are grossly intact. Assessment: Acute diverticulitis with microperforation, status post exploratory laparotomy and end colostomy Status post wound VAC placement on anterior abdominal wall Infected wound with bacteroids fragilis Possible bibasilar infiltrate, likely volume overload, improving Hyponatremia/hypokalemia, improved Obesity with a BMI of 37.1 GI prophylaxis DVT prophylaxis Full code Plan: Patient is continued on IV antibiotics with infectious disease following and will plan for oral antibiotics on discharge Ostomy nurse to provide additional education regarding discharge planning and care of an ostomy Encouraged increase activity as tolerated with frequent walking Continue current diet White count is trending down and patient remains afebrile. Will follow-up with repeat labs in a.m. Continue with wound VAC for now with case management following working on discharge planning as patient currently has no insurance General Surgery following with plans of possible discharge in the next 24 hours Overall prognosis is guarded The impression and plan of care has been dictated by Cristina Mccartney, Nurse Practitioner as directed. Dr. Nolberto MD I have performed a history and examination and MDM of this patient, discussed the same with the dictator, and agree with the dictator's assessment and plan as written ,documented as a scribe. Based on total visit time, I have performed more than 50% of the visit. Objective - Vital Signs Vital signs: Vital Signs Temp 98.7 F 05/20/24 01:58 Pulse 67 05/20/24 01:58 Resp 14 05/20/24 01:58 BP 117/72 05/20/24 01:58 Pulse Ox 97 05/20/24 01:58 FiO2 Intake & Output 05/19/24 05/19/24 05/20/24 06:59 18:59 06:59 Output Total 2 Balance -2 Weight 104.326 kg Output: Drainage 2 Right Abdomen 2 Other: Voiding Method Toilet Toilet # Voids 3 8 - Labs CBC & Chem 7: 05/19/24 03:09 05/19/24 03:09 Labs: Abnormal Lab Results - Last 24 Hours (Table) 05/19/24 05/19/24 Range/Units 03:09 03:09 WBC 11.25 H (4.50-10.00) X 10*3/uL RBC 3.52 L (4.10-5.20) X 10*6/uL Hgb 9.8 L (12.0-15.0) g/dL Hct 30.8 L (37.2-46.3) % MCHC 31.8 L (32.0-37.0) g/dL Plt Count 605 H (140-440) X 10*3/uL MPV 8.4 L (9.5-12.2) FL Immature Gran # 0.40 H (0.00-0.04) X 10*3/uL Monocytes # 1.01 H (0.20-1.00) X 10*3/uL BUN 6.3 L (9.0-27.0) mg/dL BUN/Creatinine Ratio 10.50 L (12.00-20.00) Ratio Calcium 8.2 L (8.7-10.3) mg/dL
[2024-05-20 10:56] LABS: Basophils # (A) 0.06 X 10*3/uL (0.00-0.10); Basophils % (A) 0.5 %; Eosinophils # (A) 0.23 X 10*3/uL (0.04-0.35); Eosinophils % (A) 2.1 %; HGB 10.2 g/dL (12.0-15.0); Lymphocytes % (A) 14.3 %; MCH 28.1 pg (27.0-32.0); MCHC 31.9 g/dL (32.0-37.0); MCV 88.2 FL (80.0-97.0); Mean Platelet Volume 8.5 FL (9.5-12.2); Monocytes # (A) 0.93 X 10*3/uL (0.20-1.00); Monocytes % (A) 8.3 %; NRBC Per 100 WBC 0 X 10*3/uL (0.00-0.01); Neutrophils # (A) 8.09 X 10*3/uL (1.80-7.70); Neutrophils % (A) 72.6 %; Platelet Count 692 X 10*3/uL (140-440); RBC 3.63 X 10*6/uL (4.10-5.20); WBC 11.16 X 10*3/uL (4.50-10.00)
[2024-05-20 11:01] LABS: Blood Urea Nitrogen 6.3 mg/dL (9.0-27.0); Calcium 8.4 mg/dL (8.7-10.3); Carbon Dioxide 23.5 mmol/L (21.6-31.8); Chloride 103 mmol/L (96-109); Glucose 88 mg/dL (70-110); Potassium 5.1 mmol/L (3.5-5.5); Sodium 136 mmol/L (135-145)
[2024-05-20] MEDS: ALPRAZolam 0.25 MG TAB PO PRN (13:27)
--- NOTE | 2024-05-20 14:59 | P.PN ---
Subjective Progress Note Date: 05/20/24 NAEON. No N/V. Pain controlled on current regimen. No F/C. No SOB or CP. Objective - Vital Signs Vital signs: Vital Signs Temp 98.7 F 05/20/24 14:35 Pulse 97 05/20/24 14:35 Resp 17 05/20/24 14:35 BP 124/84 05/20/24 14:35 Pulse Ox 97 05/20/24 14:35 FiO2 Intake & Output 05/19/24 05/20/24 05/20/24 18:59 06:59 18:59 Output Total 0 Balance 0 Weight 104.326 kg Output: Drainage 0 Right Abdomen 0 Other: Voiding Method Toilet # Voids 8 3 - Exam Gen: AxO, NAD Pulm: non-labored respirations Abd: soft, tender around incisions, mildly distended. No guarding/rebound/rigidity Ostomy: pink and patent bowel sweat seen. No gas or stool Incision: C/D/I no drainage seen Extrem: no edema seen - Labs CBC & Chem 7: 05/20/24 06:12 05/20/24 06:12 Labs: Abnormal Lab Results - Last 24 Hours (Table) 05/20/24 05/20/24 Range/Units 06:12 06:12 WBC 11.16 H (4.50-10.00) X 10*3/uL RBC 3.63 L (4.10-5.20) X 10*6/uL Hgb 10.2 L (12.0-15.0) g/dL Hct 32.0 L (37.2-46.3) % MCHC 31.9 L (32.0-37.0) g/dL Plt Count 692 H (140-440) X 10*3/uL MPV 8.5 L (9.5-12.2) FL Immature Gran # 0.25 H (0.00-0.04) X 10*3/uL Neutrophils # 8.09 H (1.80-7.70) X 10*3/uL BUN 6.3 L (9.0-27.0) mg/dL BUN/Creatinine Ratio 9.00 L (12.00-20.00) Ratio Calcium 8.4 L (8.7-10.3) mg/dL Assessment and Plan Assessment: Patient is a 28 year old female who is POD#1 from Jose's procedure Plan: -CLD as tolerated -IVF hydration -PRN pain and nausea control -Encourage ambulation -DVT/GI PPx Obey Buckley M.D. General Surgery
--- NOTE | 2024-05-20 15:17 | P.PN ---
Subjective Progress Note Date: 05/19/24 Principal diagnosis: Reason for follow-up is leukocytosis and abdominal abscess Patient is a 28-year-old female with no significant past medical history presenting to the hospital with abdominal pain has been diagnosed with perforated diverticulitis status post laparotomy and diverting colostomy patient did have worsening of the white count a week after admission to the hospital prompted this consultation. On today's evaluation that is 05/19/2024, patient has been afebrile, patient is breathing comfortably and is currently on room air, patient denies having any s ignificant cough no chest pain, patient did have improvement in her nausea no further vomiting abdominal pain currently controlled did have a benign colostomy. Patient white count is down to 11.25, creatinine 0.6 Objective - Vital Signs Vital signs: Vital Signs Temp 98.3 F 05/19/24 07:55 Pulse 80 05/19/24 09:30 Resp 19 05/19/24 07:55 BP 129/79 05/19/24 07:55 Pulse Ox 96 05/19/24 07:55 FiO2 Intake & Output 05/18/24 05/19/24 05/19/24 18:59 06:59 18:59 Intake Total 400 Output Total 20 2 Balance 380 -2 Intake: Oral 400 Output: Drainage 2 Right Abdomen 2 Stool 20 Other: Voiding Method Toilet Toilet # Voids 7 3 # Bowel Movements 0 - Exam GENERAL DESCRIPTION: Middle-age female up in the chair in no distress RESPIRATORY SYSTEM: Unlabored breathing , decreased breath sounds at bases HEART: S1 S2 regular rate and rhythm , ABDOMEN: Soft , no significant tenderness EXTREMITIES: No edema feet - Labs CBC & Chem 7: 05/20/24 06:12 05/20/24 06:12 Labs: Abnormal Lab Results - Last 24 Hours (Table) 05/19/24 05/19/24 Range/Units 03:09 03:09 WBC 11.25 H (4.50-10.00) X 10*3/uL RBC 3.52 L (4.10-5.20) X 10*6/uL Hgb 9.8 L (12.0-15.0) g/dL Hct 30.8 L (37.2-46.3) % MCHC 31.8 L (32.0-37.0) g/dL Plt Count 605 H (140-440) X 10*3/uL MPV 8.4 L (9.5-12.2) FL Immature Gran # 0.40 H (0.00-0.04) X 10*3/uL Monocytes # 1.01 H (0.20-1.00) X 10*3/uL BUN 6.3 L (9.0-27.0) mg/dL BUN/Creatinine Ratio 10.50 L (12.00-20.00) Ratio Calcium 8.2 L (8.7-10.3) mg/dL Assessment and Plan (1) Sepsis Current Visit: Yes Status: Acute Code(s): A41.9 - SEPSIS, UNSPECIFIED ORGANISM SNOMED Code(s): 77877852 (2) Perforation of sigmoid colon due to diverticulitis Current Visit: Yes Status: Acute Code(s): K57.20 - DVTRCLI OF LG INT W PE RFORATION AND ABSCESS W/O BLEEDING SNOMED Code(s): 7838287058217633 Plan: 1patient presented to hospital with sepsis in this patient who did have fever tachycardia elevated white count source is perforated sigmoid diverticulitis in this patient who is status post laparotomy sigmoid colectomy appendectomy and end colostomy 2-patient noticed to have worsening of the white count and is also have some drainage from lower end of incision which has been culture, initial abdominal culture have been finalized with E. coli that is a sensitive admission however also growing bacteroids fragilis and may not have been covered with Zosyn could be responsible for this elevated white count 3patient is afebrile white count is trending down, patient did have follow-up CT abdominal pelvis did not show any intra-abdominal abscess 4patient to be treated with Unasyn and Flagyl while inpatient and monitor clinical course closely Dictation was produced using [employer] dictation software. please excuse any grammatical, word or spelling errors. Time with Patient: Less than 30
--- NOTE | 2024-05-20 15:17 | P.PN ---
Subjective Progress Note Date: 05/20/24 Principal diagnosis: Reason for follow-up is leukocytosis and abdominal abscess Patient is a 28-year-old female with no significant past medical history presenting to the hospital with abdominal pain has been diagnosed with perforated diverticulitis status post laparotomy and diverting colostomy patient did have worsening of the white count a week after admission to the hospital prompted this consultation. On today's evaluation that is 05/20/2024, Patient is afebrile this morning patient denies having any chest pain shortness of breath or cough, the patient is currently on room air, patient abdominal pain is currently controlled did have some nausea but no vomiting output in the colostomy. Patient white count is trending down to 11.16, creatinine 0.7 Objective - Vital Signs Vital signs: Vital Signs Temp 98.7 F 05/20/24 14:35 Pulse 97 05/20/24 14:35 Resp 17 05/20/24 14:35 BP 124/84 05/20/24 14:35 Pulse Ox 97 05/20/24 14:35 FiO2 Intake & Output 05/19/24 05/20/24 05/20/24 18:59 06:59 18:59 Output Total 0 Balance 0 Weight 104.326 kg Output: Drainage 0 Right Abdomen 0 Other: Voiding Method Toilet # Voids 8 3 - Exam GENERAL DESCRIPTION: Middle-age female up in the chair in no distress RESPIRATORY SYSTEM: Unlabored breathing , decreased breath sounds at bases HEART: S1 S2 regular rate and rhythm , ABDOMEN: Soft , no significant tenderness EXTREMITIES: No edema feet - Labs CBC & Chem 7: 05/20/24 06:12 05/20/24 06:12 Labs: Abnormal Lab Results - Last 24 Hours (Table) 05/20/24 05/20/24 Range/Units 06:12 06:12 WBC 11.16 H (4.50-10.00) X 10*3/uL RBC 3.63 L (4.10-5.20) X 10*6/uL Hgb 10.2 L (12.0-15.0) g/dL Hct 32.0 L (37.2-46.3) % MCHC 31.9 L (32.0-37.0) g/dL Plt Count 692 H (140-440) X 10*3/uL MPV 8.5 L (9.5-12.2) FL Immature Gran # 0.25 H (0.00-0.04) X 10*3/uL Neutrophils # 8.09 H (1.80-7.70) X 10*3/uL BUN 6.3 L (9.0-27.0) mg/dL BUN/Creatinine Ratio 9.00 L (12.00-20.00) Ratio Calcium 8.4 L (8.7-10.3) mg/dL Assessment and Plan (1) Sepsis Current Visit: Yes Status: Acute Code(s): A41.9 - SEPSIS, UNSPECIFIED ORGANISM SNOMED Code(s): 99663572 (2) Perforation of sigmoid colon due to diverticulitis Current Visit: Yes Status: Acute Code(s): K57.20 - DVTRCLI OF LG INT W P ERFORATION AND ABSCESS W/O BLEEDING SNOMED Code(s): 7816940055462096 Plan: 1patient presented to hospital with sepsis in this patient who did have fever tachycardia elevated white count source is perforated sigmoid diverticulitis in this patient who is status post laparotomy sigmoid colectomy appendectomy and end colostomy 2-patient noticed to have worsening of the white count and is also have some drainage from lower end of incision which has been culture, initial abdominal culture have been finalized with E. coli that is a sensitive admission however also growing bacteroids fragilis and may not have been covered with Zosyn could be responsible for this elevated white count 3patient is afebrile white count is trending down, patient did have follow-up CT abdominal pelvis did not show any intra-abdominal abscess 4patient has shown clinical improvement continue with Unasyn and Flagyl while inpatient, oral antibiotics on discharge Mother at the bedside question answered Dictation was produced using [employer] dictation software. please excuse any grammatical, word or spelling errors. Time with Patient: Less than 30
--- NOTE | 2024-05-20 21:49 | PN ---
PROGRESS NOTE DATE OF SERVICE: 05/20/2024 SUBJECTIVE: This is a 28-year-old woman, who was admitted after perforated diverticulitis and surgery. Has a wound VAC also. No chest pain. No palpitation. OBJECTIVE: VITAL SIGNS: Pulse is 80, blood pressure 120/70, respirations 17. CHEST: Clear to auscultation. CARDIOVASCULAR: S1, S2. ABDOMEN: Soft, status post surgery. LABORATORY DATA: WBC 11.16. ASSESSMENT: 1. Acute diverticulitis with perforation, status post exploratory laparotomy and end- colostomy. 2. Status post wound VAC. 3. Hypernatremia. 4. Multiple organisms cultured including E coli bacteria and Bacteroides . RECOMMENDATIONS: Recommend to continue current medications and continue symptomatic treatment. Otherwise, we will continue the current medications. I would also recommend blood cultures also. MMODL / IJN: [id number] / MTDD
--- NOTE | 2024-05-20 23:11 | P.PN ---
Subjective Patient seen and evaluated at bedside. Patient anxious and tearful not ready to go home yet. admits to mild abdominal pain tolerating diet. Having bowel function Objective - Vital Signs Vital signs: Vital Signs Temp 98.1 F 05/20/24 19:28 Pulse 89 05/20/24 21:14 Resp 18 05/20/24 19:28 BP 113/74 05/20/24 19:28 Pulse Ox 95 05/20/24 19:28 FiO2 Intake & Output 05/20/24 05/20/24 05/21/24 06:59 18:59 06:59 Output Total 0 Balance 0 Output: Drainage 0 Right Abdomen 0 Other: Voiding Method Toilet # Voids 3 3 - Exam gen: nad cv rrr pul: non labored breathing abd: soft, non distended tender to palpation in the left lower quadrant, ostomy pink/patent/ producing. - Labs CBC & Chem 7: 05/20/24 06:12 05/20/24 06:12 Labs: Abnormal Lab Results - Last 24 Hours (Table) 05/20/24 05/20/24 Range/Units 06:12 06:12 WBC 11.16 H (4.50-10.00) X 10*3/uL RBC 3.63 L (4.10-5.20) X 10*6/uL Hgb 10.2 L (12.0-15.0) g/dL Hct 32.0 L (37.2-46.3) % MCHC 31.9 L (32.0-37.0) g/dL Plt Count 692 H (140-440) X 10*3/uL MPV 8.5 L (9.5-12.2) FL Immature Gran # 0.25 H (0.00-0.04) X 10*3/uL Neutrophils # 8.09 H (1.80-7.70) X 10*3/uL BUN 6.3 L (9.0-27.0) mg/dL BUN/Creatinine Ratio 9.00 L (12.00-20.00) Ratio Calcium 8.4 L (8.7-10.3) mg/dL Assessment and Plan Assessment: 28 yo female s/p ex lap, sigmoid colectomy, appendectomy and drain placement -wound vac applied -defer to case management for home supplies -anticipated discharge Time with Patient: Greater than 30
[2024-05-21 09:32] LABS: Basophils # (A) 0.09 X 10*3/uL (0.00-0.10); Basophils % (A) 0.9 %; Eosinophils # (A) 0.28 X 10*3/uL (0.04-0.35); Eosinophils % (A) 2.7 %; HCT 32.3 % (37.2-46.3); HGB 10.2 g/dL (12.0-15.0); Lymphocytes # (A) 2.01 X 10*3/uL (0.90-5.00); Lymphocytes % (A) 19.1 %; MCH 27.8 pg (27.0-32.0); MCHC 31.6 g/dL (32.0-37.0); Mean Platelet Volume 8.5 FL (9.5-12.2); Monocytes # (A) 0.96 X 10*3/uL (0.20-1.00); Monocytes % (A) 9.1 %; NRBC Per 100 WBC 0 X 10*3/uL (0.00-0.01); Neutrophils # (A) 6.99 X 10*3/uL (1.80-7.70); Neutrophils % (A) 66.1 %; Platelet Count 727 X 10*3/uL (140-440); RBC 3.67 X 10*6/uL (4.10-5.20); RDW 13.9 % (11.5-14.5); WBC 10.55 X 10*3/uL (4.50-10.00)
[2024-05-21 09:36] LABS: Blood Urea Nitrogen 8.4 mg/dL (9.0-27.0); Carbon Dioxide 23.7 mmol/L (21.6-31.8); Chloride 104 mmol/L (96-109); Glucose 92 mg/dL (70-110); Potassium 4.8 mmol/L (3.5-5.5); Sodium 137 mmol/L (135-145)
[2024-05-21 09:37] LABS: ALT 12 U/L (8-44); AST 12 U/L (13-35); Albumin 3.1 g/dL (3.8-4.9); Albumin/Globulin Ratio 1.07 Ratio (1.60-3.17); Alkaline Phosphatase 68 U/L (41-126); Calcium 8.8 mg/dL (8.7-10.3); Globulin 2.9 g/dL (1.6-3.3); Total Bilirubin 0.2 mg/dL (0.3-1.2)
--- NOTE | 2024-05-21 10:05 | P.PN ---
Subjective Progress Note Date: 05/21/24 Patient seen and examined at bedside. States she had a restful night. Pain getting better daily. Ostomy continues to function. Tolerating diet. Objective - Vital Signs Vital signs: Vital Signs Temp 98.0 F 05/21/24 07:18 Pulse 74 05/21/24 07:18 Resp 14 05/21/24 07:18 BP 117/75 05/21/24 07:18 Pulse Ox 97 05/21/24 07:18 FiO2 Intake & Output 05/20/24 05/21/24 05/21/24 18:59 06:59 18:59 Intake Total 540 Output Total 0 30 Balance 0 510 Intake: Oral 540 Output: Drainage 0 Right Abdomen 0 Stool 30 Other: Voiding Method Toilet # Voids 3 # Bowel Movements 1 - Constitutional General appearance: Present: cooperative, no acute distress - Gastrointestinal Gastrointestinal Comment(s): Midline incision clean, dry and intact with wound VAC in place and inferior portion of wound, LASHA drain in place, ostomy pink patent and functioning. - Labs CBC & Chem 7: 05/21/24 04:39 05/21/24 04:39 Labs: Abnormal Lab Results - Last 24 Hours (Table) 05/20/24 05/20/24 05/21/24 Range/Units 06:12 06:12 04:39 WBC 11.16 H 10.55 H (4.50-10.00) X 10*3/uL RBC 3.63 L 3.67 L (4.10-5.20) X 10*6/uL Hgb 10.2 L 10.2 L (12.0-15.0) g/dL Hct 32.0 L 32.3 L (37.2-46.3) % MCHC 31.9 L 31.6 L (32.0-37.0) g/dL Plt Count 692 H 727 H (140-440) X 10*3/uL MPV 8.5 L 8.5 L (9.5-12.2) FL Immature Gran # 0.25 H 0.22 H (0.00-0.04) X 10*3/uL Neutrophils # 8.09 H (1.80-7.70) X 10*3/uL BUN 6.3 L (9.0-27.0) mg/dL BUN/Creatinine Ratio 9.00 L (12.00-20.00) Ratio Calcium 8.4 L (8.7-10.3) mg/dL Total Bilirubin (0.3-1.2) mg/dL AST (13-35) U/L Total Protein (6.2-8.2) g/dL Albumin (3.8-4.9) g/dL Albumin/Globulin Ratio (1.60-3.17) Ratio // Range/Units 04:39 WBC (4.50-10.00) X 10*3/uL RBC (4.10-5.20) X 10*6/uL Hgb (12.0-15.0) g/dL Hct (37.2-46.3) % MCHC (32.0-37.0) g/dL Plt Count (140-440) X 10*3/uL MPV (9.5-12.2) FL Immature Gran # (0.00-0.04) X 10*3/uL Neutrophils # (1.80-7.70) X 10*3/uL BUN 8.4 L (9.0-27.0) mg/dL BUN/Creatinine Ratio (12.00-20.00) Ratio Calcium (8.7-10.3) mg/dL Total Bilirubin 0.2 L (0.3-1.2) mg/dL AST 12 L (13-35) U/L Total Protein 6.0 L (6.2-8.2) g/dL Albumin 3.1 L (3.8-4.9) g/dL Albumin/Globulin Ratio 1.07 L (1.60-3.17) Ratio Assessment and Plan Plan: Status post Wilkinson's procedure. Patient appears to be improving quite well. Will remove LASHA drain prior to discharge. Patient working with case management on discharge as she is uninsured. Surgically stable for discharge.
[2024-05-21] MEDS ORDERED: ZINC OXIDE PASTE (Z-GUARD) 1 APPLIC TOPICAL PRN (16:23)
[2024-05-21] MEDS: ZINC OXIDE PASTE (Z-GUARD) 1 APPLIC TOPICAL SCH (16:26)
--- NOTE | 2024-05-21 19:16 | PN ---
PROGRESS NOTE DATE OF SERVICE: 05/21/2024 SUBJECTIVE: This is a 28-year-old woman, who was admitted with acute diverticulitis and perforation, is being closely monitored. No chest pain. The patient had a wound VAC need to be arranged outpatient. OBJECTIVE: VITAL SIGNS: Pulse is 74, blood pressure 170/75. HEENT: Conjunctivae normal. CARDIOVASCULAR: S1, S2. RESPIRATIONS: Breath sounds diminished at the bases. ABDOMEN: Soft, status post surgery. LABORATORY DATA: Noted. ASSESSMENT: 1. Acute diverticulitis with perforation, status post exploratory laparotomy and end- colostomy. 2. Status post wound VAC. 3. Hypernatremia. 4. Multiple organisms including E coli and Bacteroides from the culture. RECOMMENDATIONS: Recommend to continue current medications and continue symptomatic treatment. Continue with antibiotics. Arrange primary care appointment as well as wound VAC and other supplies. Prognosis guarded. Further recommendations to follow. Discharge within 24 hours. MMODL / IJN: [id number] /
--- NOTE | 2024-05-22 07:52 | P.PN ---
Subjective Progress Note Date: 05/21/24 Principal diagnosis: Reason for follow-up is leukocytosis and abdominal abscess Patient is a 28-year-old female with no significant past medical history presenting to the hospital with abdominal pain has been diagnosed with perforated diverticulitis status post laparotomy and diverting colostomy patient did have worsening of the white count a week after admission to the hospital prompted this consultation. On today's evaluation that is 05/21/2024,the patient denies any fever or any chills, patient is breathing comfortably on room air, the patient denies chest pain shortness of breath and no significant cough, patient abdominal pain is decreased intensity no nausea no vomiting but did have output in her colostomy. Patient white count is down to 10.55 creatinine 0.7 Objective - Vital Signs Vital signs: Vital Signs Temp 98.9 F 05/21/24 13:26 Pulse 101 H 05/21/24 13:26 Resp 16 05/21/24 13:26 BP 127/82 05/21/24 13:26 Pulse Ox 97 05/21/24 13:26 FiO2 Intake & Output 05/20/24 05/21/24 05/21/24 18:59 06:59 18:59 Intake Total 540 Output Total 0 30 100 Balance 0 510 -100 Intake: Oral 540 Output: Drainage 0 0 Right Abdomen 0 0 Stool 30 100 Other: Voiding Method Toilet Toilet # Voids 3 # Bowel Movements 1 - Exam GENERAL DESCRIPTION: Middle-age female up in the chair in no distress RESPIRATORY SYSTEM: Unlabored breathing , decreased breath sounds at bases HEART: S1 S2 regular rate and rhythm , ABDOMEN: Soft , lower abdominal wound deep but overall no surrounding redness or foul-smelling drainage was noticed at the time of wound VAC change EXTREMITIES: No edema feet - Labs CBC & Chem 7: 05/21/24 04:39 05/21/24 04:39 Labs: Abnormal Lab Results - Last 24 Hours (Table) 05/21/24 05/21/24 Range/Units 04:39 04:39 WBC 10.55 H (4.50-10.00) X 10*3/uL RBC 3.67 L (4.10-5.20) X 10*6/uL Hgb 10.2 L (12.0-15.0) g/dL Hct 32.3 L (37.2-46.3) % MCHC 31.6 L (32.0-37.0) g/dL Plt Count 727 H (140-440) X 10*3/uL MPV 8.5 L (9.5-12.2) FL Immature Gran # 0.22 H (0.00-0.04) X 10*3/uL BUN 8.4 L (9.0-27.0) mg/dL Total Bilirubin 0.2 L (0.3-1.2) mg/dL AST 12 L (13-35) U/L Total Protein 6.0 L (6.2-8.2) g/dL Albumin 3.1 L (3.8-4.9) g/dL Albumin/Globulin Ratio 1.07 L (1.60-3.17) Ratio Assessment and Plan (1) Sepsis Current Visit: Yes Status: Acute Code(s): A41.9 - SEPSIS, UNSPECIFIED ORGANISM SNOMED Code(s): 03306726 (2) Perforation of sigmoid colon due to diverticulitis Current Visit: Yes Status: Acute Code(s): K57.20 - DVTRCLI OF LG INT W PERFORATION AND ABSCESS W/O BLEEDING SNOMED Code(s): 2100144730007815 Plan: 1patient presented to hospital with sepsis in this patient who did have fever tachycardia elevated white count source is perforated sigmoid diverticulitis in this patient who is status post laparotomy sigmoid colectomy appendectomy and end colostomy 2-patient noticed to have worsening of the white count and is also have some drainage from lower end of incision which has been culture, initial abdominal culture have been finalized with E. coli that is a sensitive admission however also growing bacteroids fragilis and may not have been covered with Zosyn could be responsible for this elevated white count 3patient is afebrile white count is down to 10.5, patient did have follow-up CT abdominal pelvis did not show any intra-abdominal abscess 4patient slowly clinically improving and will be continued with Unasyn and Flagyl while inpatient, monitor clinical course closely Family at the bedside question answered Dictation was produced using [employer] dictation software. please excuse any grammatical, word or spelling errors. Time with Patient: Less than 30
--- NOTE | 2024-05-22 11:04 | P.PN ---
Subjective Progress Note Date: 05/22/24 SURGICAL PROGRESS NOTE CHIEF COMPLAINT: Perforated sigmoid diverticulitis HISTORY OF PRESENT ILLNESS: Patient is status post exploratory laparotomy, sigmoid colectomy, appendectomy and ostomy creation. Her pain is controlled. She is tolerating regular diet. Ostomy is functioning. No significant output from the LASHA drain. Has wound VAC in place. Afebrile. WBC 10.55 as of yesterday PHYSICAL EXAM: VITAL SIGNS: Reviewed. GENERAL: Well-developed in no acute distress. ABDOMEN: Soft. Nondistended. Midline incision clean dry and intact. Wound VAC placed in place at the distal aspect of the incision. Ostomy with stool present. NEUROLOGIC: Alert and oriented. Cranial nerves II through XII grossly intact. ASSESSMENT: 1. Sigmoid diverticulitis with perforation 2. Surgical site infection PLAN: -Discontinue LASHA drain prior to discharge -Patient is working with case management manager on discharge needs as she is uninsured -Discharge antibiotics per infectious disease -Patient is stable for discharge from surgical standpoint -DVT prophylaxis Lovenox and GI prophylaxis Pepcid Physician Medical Service Technician note has been reviewed by physician. Signing provider agrees with the documented findings, assessment, and plan of care. Objective - Vital Signs Vital signs: Vital Signs Temp 98.5 F 05/22/24 01:23 Pulse 86 05/22/24 09:10 Resp 17 05/22/24 01:23 BP 119/76 05/22/24 01:23 Pulse Ox 98 05/22/24 01:23 FiO2 Intake & Output 05/21/24 05/22/24 05/22/24 18:59 06:59 18:59 Output Total 100 0 Balance -100 0 Output: Drainage 0 0 Right Abdomen 0 0 Stool 100 Other: Voiding Method Toilet Toilet # Voids 2 - Labs CBC & Chem 7: 05/21/24 04:39 05/21/24 04:39 Labs: Microbiology - Last 24 Hours (Table) 05/20/24 14:46 Blood Culture - Preliminary Blood Assessment and Plan Assessment: discussed w/ midlevel provider, stable for discharge. Follow up in 1-2 weeks.
--- NOTE | 2024-05-22 15:00 | P.PN ---
Subjective Progress Note Date: 05/22/24 Principal diagnosis: Reason for follow-up is leukocytosis and abdominal abscess Patient is a 28-year-old female with no significant past medical history presenting to the hospital with abdominal pain has been diagnosed with perforated diverticulitis status post laparotomy and diverting colostomy patient did have worsening of the white count a week after admission to the hospital prompted this consultation. On today's evaluation that is 05/22/2024,the patient remains to be afebrile, patient is on room air not requiring supplemental oxygen and denies any shortness of breath no chest pain or cough.Patient denies having any nausea or vomiting, no abdominal pain and did have reported her colostomy. No new lab has been repeated today d Objective - Vital Signs Vital signs: Vital Signs Temp 98.5 F 05/22/24 01:23 Pulse 86 05/22/24 09:10 Resp 17 05/22/24 09:00 BP 119/76 05/22/24 01:23 Pulse Ox 98 05/22/24 01:23 FiO2 Intake & Output 05/21/24 05/22/24 05/22/24 18:59 06:59 18:59 Output Total 100 0 0 Balance -100 0 0 Output: Drainage 0 0 0 Right Abdomen 0 0 0 Stool 100 Other: Voiding Method Toilet Toilet # Voids 2 - Exam GENERAL DESCRIPTION: Middle-age female up in the chair in no distress RESPIRATORY SYSTEM: Unlabored breathing , decreased breath sounds at bases HEART: S1 S2 regular rate and rhythm , ABDOMEN: Soft , abdominal surgical currently dressed EXTREMITIES: No edema feet - Labs CBC & Chem 7: 05/21/24 04:39 05/21/24 04:39 Labs: Microbiology - Last 24 Hours (Table) 05/20/24 14:46 Blood Culture - Preliminary Blood Assessment and Plan (1) Sepsis Current Visit: Yes Status: Acute Code(s): A41.9 - SEPSIS, UNSPECIFIED ORGANISM SNOMED Code(s): 46710733 (2) Perforation of sigmoid colon due to diverticulitis Current Visit: Yes Status: Acute Code(s): K57.20 - DVTRCLI OF LG INT W PERFORATION AND ABSCESS W/O BLEEDING SNOMED Code(s): 4330654451851139 Plan: 1patient presented to hospital with sepsis in this patient who did have fever tachycardia elevated white count source is perforated sigmoid diverticulitis in this patient who is status post laparotomy sigmoid colectomy appendectomy and end colostomy 2-patient noticed to have worsening of the white count and is also have some drainage from lower end of incision which has been cultured that did grew multiple pathogen, initial abdominal culture have been finalized with E. coli that is a sensitive admission however also growing bacteroids fragilis and may not have been covered with Zosyn could be responsible for this elevated white count 3patient is afebrile white count is down to 10.5, patient did have follow-up CT abdominal pelvis did not show any intra-abdominal abscess 4patient has shown clinical improvement with Unasyn and Flagyl, outpatient IV Rocephin and oral Flagyl discussed with the patient however patient refused because of the cost associated with it as she has no insurance we will recommend a 2-week course of oral Augmentin and Flagyl on discharge discussed with the EPIDEMIOLOGIST for admitting team working on discharge Mother at the bedside question answered Dictation was produced using [employer] dictation software. please excuse any grammatical, word or spelling errors. Time with Patient: Less than 30
[2024-05-22 17:11] VITALS: BP 137/85; PULSE 91; RESP 20; TEMP 97.7
--- NOTE | 2024-05-23 19:43 | CDI ---
Documentation Clarification Form Date: 05/23/2024 07:23:21 PM From: Laura Diaz Phone: Admit Date: 05/06/2024 02:29:00 PM Patient Name: Margaret Bhandari Visit Number: [id number] Discharge Date: 05/22/2024 04:30:00 PM ATTENTION: The Clinical Documentation Specialists (CDI) and [facility] Coding Staff appreciate your assistance in clarifying documentation. Please respond to the clarification below the line at the bottom and electronically sign. The CDI & [facility] Coding staff will review the response and follow-up if needed. Please note: Queries are made part of the Legal Health Record. If you have any questions, please contact the author of this message via ITS. Doctor/Provider: Jude Arvizu Unspecified anemia is documented Progress Note 05/14 & 05/15. Additional specificity regarding the type of anemia is requested. History/Risk Factors: 28yo F, Acutediverticulitis with micro perforation,Leukocytosis, hypokalemia, hypernatremia, anemia, woundculture w bacteroids fragilis &E coli Clinical indicators: Hgb: 05/06 135 05/07 116 05/08 112 /13 110 05/10 107 05/11 103 05/12 95 05/13 94 05/14 99 Hct: 05/06 400 05/10 332 05/11 319 05/12 293 05/13 298 05/14 305 05/15 304 05/16 313 Treatment: Recommend to continue current management and continue symptomatic treatment. The patient also had Bacteroides growing from the culture also I would recommend continue with Unasyn and Flagyl. Repeat labs. Closely monitor. Guarded prognosis. Further recommendations to follow Please clarify the type and acuity of anemia: [ ] Acute blood loss anemia [ ] Acute on chronic blood loss anemia [ ] Iron deficiency anemia [ ] Unable to determine [ ] Other, please specify (Template Last Revised: June 2020) Unable to determine MTDD
== END 2024-05-22 16:30 | disposition home or self-care (01) | DRG 854 ==
LOC: EC 09:40 → 4SSUR 14:29
PROVIDERS: ADMIT Internal Medicine; ATTEND Internal Medicine
PROC: 0DTN0ZZ Resection of Sigmoid Colon, Open Approach (ICD-10-PCS; principal; 2024-05-08)
PROC: 0DTJ0ZZ Resection of Appendix, Open Approach (ICD-10-PCS; 2024-05-08)
PROC: 0D1N0Z4 Bypass Sigmoid Colon to Cutaneous, Open Approach (ICD-10-PCS; 2024-05-08)
DX: A41.51 Sepsis due to Escherichia coli [E. coli] (principal); E87.0 Hyperosmolality and hypernatremia; E87.1 Hypo-osmolality and hyponatremia; K56.7 Ileus, unspecified; K57.20 Diverticulitis of large intestine with perforation and abscess without bleeding; T81.41XA Infection following a procedure, superficial incisional surgical site, initial encounter; Z97.5 Presence of (intrauterine) contraceptive device; Z87.891 Personal history of nicotine dependence; B96.6 Bacteroides fragilis [B. fragilis] as the cause of diseases classified elsewhere; E87.6 Hypokalemia; Z68.37 Body mass index [BMI] 37.0-37.9, adult; E66.9 Obesity, unspecified; F41.9 Anxiety disorder, unspecified; E87.70 Fluid overload, unspecified; Z59.71 Insufficient health insurance coverage; D64.9 Anemia, unspecified
CPT/HCPCS: 36410; 36415; 71045; 71046; 74177; 76937; 80048; 80053; 81001; 81025; 82150; 83605; 83690; 83735; 84132; 85025; 85027; 85652; 86140; 86850; 86900; 86901; 87040; 87070; 87075; 87077; 87186; 87205; 88304; 88307; 94640; 94760; 96361; 96365; 96366; 96375; 96376; 99285

== ENCOUNTER 2024-10-24 10:13 | Inpatient (IN) | payer BC, OTHER ==
[~2024-10-24 10:13] MED LIST: HYDROmorphone 0.5 MG/0.5 ML SYRINGE IVP PRN
[2024-10-24] MEDS: LACTATED RINGERS 1,000 ML IV ONE ×3 (11:02→14:23)
[2024-10-24] MEDS: LACTATED RINGERS 1,000 ML IV SCH (11:02)
[2024-10-24] MEDS: DEXAMETHASONE SOD PHOSPHATE 4 MG/ML 1 ML VIAL IV ONE (11:03)
[2024-10-24] MEDS: SCOPOLAMINE 1 MG/72 HR PATCH TRANSDERM ONE (11:03)
[2024-10-24] MEDS: ONDANSETRON 4 MG/2 ML VIAL IVP ONE (11:03)
[2024-10-24] MEDS: MIDAZOLAM 2 MG/2 ML VIAL IV PRN (11:42)
[2024-10-24] MEDS: fentaNYL (PF) 50 MCG/ML 2 ML AMP IVP STA (11:42)
[2024-10-24] MEDS ORDERED: SUCCINYLCHOLINE CHLORIDE 200 MG/10 ML VIAL IV ONE (11:55)
[2024-10-24] MEDS ORDERED: diphenhydrAMINE 50 MG/ML 1 ML VIAL ONE (11:55)
[2024-10-24] MEDS ORDERED: NEOSTIGMINE 1 MG/ML 10 ML VIAL ONE (11:55)
[2024-10-24] MEDS ORDERED: ROCURONIUM 10 MG/ML (5 ML VIAL) IV ONE (11:55)
[2024-10-24] MEDS ORDERED: KETAMINE HCL IN 0.9 % NACL 50 MG/5 ML SYRINGE ONE (11:55)
[2024-10-24] MEDS ORDERED: MIDAZOLAM 2 MG/2 ML VIAL ONE (11:55)
[2024-10-24] MEDS ORDERED: HYDROmorphone (PF) 1 MG/ML ONE (11:55)
[2024-10-24] MEDS ORDERED: ePHEDrine 50 MG/ML 1 ML VIAL ONE (11:55)
[2024-10-24] MEDS ORDERED: fentaNYL (PF) 50 MCG/ML 2 ML AMP ONE (11:55)
[2024-10-24] MEDS ORDERED: ONDANSETRON 4 MG/2 ML VIAL ONE (11:55)
[2024-10-24] MEDS ORDERED: PROPOFOL 10 MG/ML 20 ML VIAL IV ONE (11:55)
[2024-10-24] MEDS ORDERED: GLYCOPYRROLATE 0.2 MG/ML 2 ML VIAL ONE (11:55)
[2024-10-24] MEDS: HEPARIN SODIUM,PORCINE 5,000 UNIT/ML 1 ML VIAL SQ PRN (11:57)
[2024-10-24] MEDS ORDERED: NALOXONE 0.4 MG/ML 1 ML VIAL IV PRN (11:59)
[2024-10-24] MEDS ORDERED: ONDANSETRON 4 MG/2 ML VIAL IVP PRN (11:59)
[2024-10-24] MEDS ORDERED: MORPHINE SULFATE 2 MG/ML SYRINGE IVP PRN (11:59)
--- NOTE | 2024-10-24 11:59 | P.ANPRN ---
Procedure Note - Anesthesia - Epidural/Spinal Epidural Continuous Time Out Performed: Yes Date of Procedure: 10/24/24 Procedure Start Time: 11:41 Procedure Stop Time: 11:54 Location of Patient: PreOp Indication: Acute Post-Operative Pain, Requested by Surgeon ([email or web address]) Sedation Type: Sedate with meaningful contact maintained Preparation: Sterile Dressing Number of Attempts: 1 Position: Sitting Catheter Depth at Skin (cm): 13 Catheter: Indwelling Needle Guage: 18 Injectate: test neg Blood Aspirated: No Pain Paresthesia on Injection Noted: No Events: Uneventful and Well Tolerated
[2024-10-24] MEDS: ceFAZolin 2 GM in DEXTROSE 5% IN WATER 50 ML IVPB PRN (12:00)
[2024-10-24] MEDS: metroNIDAZOLE-NS PMX 500 MG in SALINE 1 100ML.BAG IVPB PRN (12:15)
[2024-10-24] MEDS ORDERED: HYDROmorphone 1 MG/ML 1 ML SYRINGE IM PRN (16:12)
[2024-10-24] MEDS: SODIUM CHLORIDE 0.9% 1,000 ML IV SCH (17:40)
--- NOTE | 2024-10-24 19:55 | P.OP ---
Date of Procedure: 10/24/24 Preoperative Diagnosis: Diverticulosis Postoperative Diagnosis: Diverticulosis Procedure(s) Performed: Exploratory laparotomy with colostomy reversal LASHA drain placement and intraoperative colonoscopy Anesthesia: SURJITA Surgeon: Yossi Bowling Estimated Blood Loss (ml): 120 Pathology: other (Colostomy) Condition: stable Disposition: PACU Indications for Procedure: Colostomy reversal Description of Procedure: Patient was brought to the operating suite where she was cleaned and draped in a sterile fashion. A timeout was performed and everyone agreed with the information resited next a midline incision using a #10 blade was then used along the original incision we use electrocautery to dissect down through the subcutaneous tissue fascia entering the peritoneum once this was done we encountered a large amount of adhesions and careful blunt/sharp dissection was used to clear these adhesions we then turned our attention to finding the rectal stump which was dissected freely and mobilized. I then turned my attention to freeing up the colostomy from the most posterior aspect once this was adequate I then turned my attention to making an elliptical incision around the stoma using a #15 blade and then using electrocautery to dissect out the colostomy was freed up relatively easy and pulled through the abdominal wall the initial ostomy stoma was resected and passed off as a specimen once I left in the colon and had adequate reach without tension I then made an enterotomy in the rectal stump and in the distal end of the descending colon and used an Endo EVELINA 60 purple staple load to create my anastomosis. This was repeated. And then a TA 60 staple load was then used to close the anastomosis a crotch stitch was placed a hemostatic timeout was performed and no bleeding was observed I then used a running 3-0 Vicryl stitch to suture along the staple line. This was done back down into the abdomen and then attention was turned to doing a colonoscopy the abdomen was filled with normal saline and direct visualization was performed intraluminally. To my satisfaction I was very happy with the anastomosis and there was no air bubbles. Next the fluid was then suctioned a 19 Kiswahili channel LASHA drain was placed through the abdomen the previous colostomy site was closed using multiple interrupted 0 Vicryl sutures. And a pursestring was used to close the skin with iodoform packing we then turned our attention to closing the midline incision using 1 looped PDS suture in a cephalad to caudad in a caudad to cephalad fashion retention sutures were placed in the subcutaneous tissue and the skin was closed using boris. The patient tolerated the procedure well and was then transported to PACU in stable condition thank you this end of this dictation
[2024-10-24] MEDS: diphenhydrAMINE 50 MG/ML 1 ML VIAL IVP PRN (22:52)
--- NOTE | 2024-10-25 08:40 | P.PN ---
Progress Note - Text Progress Note Date: 10/25/24 Patient was seen and evaluated at bedside. Postop day # 1 status post Exploratory laparotomy with colostomy reversal LASHA drain placement . Patient epidural solution increased from 5 mL per hour to 6 mL per hour last night for better pain control during activities. Patient is comfortably lying on the bed. Rated pain levels are 3-4 out of 10 in severity. With activity her pain levels are 6-7 out of 10 in severity . Moving extremities well without any difficulty. He denied any red flag symptoms, pain over the catheter site. She is complaining mild itching, per patient Miladys is helping her. Physical exam: Vital signs: stable, afebrile Catheter site: Clean, and intact Dressing. no tenderness over the catheter area. Moving lower extremities without difficulty. Assessment: Acute postoperative pain secondary to Exploratory laparotomy with colostomy reversal LASHA drain placement Plan: Continue epidural infusion solution of Ropivacaine and fentanyl 5 g per ml at the rate of 7mL per hour. Increased from 6 to 7 mL/h. We will continue epidural catheter unless primary team planned to send the patient home then we will discontinue. Call anesthesia as needed.
[2024-10-25 09:46] LABS: Basophils # (A) 0.04 10*3/uL (0.00-0.10); Basophils % (A) 0.4 %; Eosinophils # (A) 0.02 10*3/uL (0.04-0.35); Eosinophils % (A) 0.2 %; HCT 39.3 % (37.2-46.3); HGB 12.9 g/dL (12.0-15.0); Lymphocytes # (A) 2.23 10*3/uL (0.90-5.00); Lymphocytes % (A) 20.1 %; MCH 27.4 pg (27.0-32.0); MCHC 32.8 g/dL (32.0-37.0); MCV 83.6 fL (80.0-97.0); Mean Platelet Volume 8.4 fL (9.5-12.2); Monocytes # (A) 0.92 10*3/uL (0.20-1.00); Monocytes % (A) 8.3 %; Neutrophils # (A) 7.82 10*3/uL (1.80-7.70); Neutrophils % (A) 70.5 %; Platelet Count 285 10*3/uL (140-440); RDW 13.2 % (11.5-14.5); WBC 11.08 10*3/uL (4.50-10.00)
[2024-10-25 10:06] LABS: African American GFR (CKD) >90 (>60 ml/min/1.73 sqM); Anion Gap 9 mmol/L; Blood Urea Nitrogen 9 mg/dL (7-17); Calcium 8.5 mg/dL (8.4-10.2); Carbon Dioxide 20 mmol/L (22-30); Chloride 109 mmol/L (98-107); Glucose 86 mg/dL (74-99); Non-African American GFR(CKD) >90 (>60 ml/min/1.73 sqM); Sodium 138 mmol/L (137-145)
[2024-10-25] MEDS: ONDANSETRON 4 MG/2 ML VIAL IVP PRN (12:32)
--- NOTE | 2024-10-25 12:59 | P.PN ---
Subjective Patient seen and evaluated at bedside. Patient doing well, pain controlled, denies nausea, vomiting, fevers, chills, no bowel movement at this time. Objective - Vital Signs Vital signs: Vital Signs Temp 98.2 F 10/25/24 06:51 Pulse 93 10/25/24 06:51 Resp 16 10/25/24 06:51 BP 120/78 10/25/24 06:51 Pulse Ox 97 10/25/24 06:51 FiO2 Intake & Output 10/24/24 10/25/24 10/25/24 18:59 06:59 18:59 Intake Total 2550 Output Total 680 650 Balance 1870 -650 Weight 96.2 kg Intake: IV 2550 Output: Drainage 50 Abdomen 50 Urine 560 600 Estimated Blood Loss 120 Other: Voiding Method Indwelling Catheter Indwelling Catheter - Exam gen: nad cv: rrr pul: no labored breathing abd: soft, non distended, non tender to palpation, no guarding or rebound tender ness, surgical incision c/d/i, previous ostomy site appropriately draining - Labs CBC & Chem 7: 10/25/24 09:31 10/25/24 09:31 Labs: Abnormal Lab Results - Last 24 Hours (Table) 10/25/24 10/25/24 Range/Units 09:31 09:31 WBC 11.08 H (4.50-10.00) 10*3/uL MPV 8.4 L (9.5-12.2) fL Immature Gran # 0.05 H (0.00-0.04) 10*3/uL Neutrophils # 7.82 H (1.80-7.70) 10*3/uL Eosinophils # 0.02 L (0.04-0.35) 10*3/uL Chloride 109 H (98-107) mmol/L Carbon Dioxide 20 L (22-30) mmol/L Assessment and Plan Assessment: 29 yo female s/p colostomy reversal -continue to monitor pee drain and previous ostomy site -hgb stable -advance to clear liquid diet Time with Patient: Less than 30
[2024-10-25] MEDS: NALBUPHINE 10 MG/ML (10 ML MDV) IV PRN (21:26)
--- NOTE | 2024-10-26 08:59 | P.PN ---
Progress Note - Text Progress Note Date: 10/26/24 Patient was seen and evaluated at bedside. Postop day # 2 status post Exploratory laparotomy with colostomy reversal LASHA drain placement . Patient epidural solution @7 mL per hour for pain control during activities. Patient is comfortably lying on the bed. Rated pain levels are 2-3 out of 10 in severity. With activity her pain levels are 5-6 out of 10 in severity . Moving extremities well without any difficulty. He denied any red flag symptoms, no pain over the catheter site. She is complaining mild itching, per patient eddie Hook are helping her. Physical exam: Vital signs: stable, afebrile Catheter site: Clean, and intact Dressing. no tenderness over the catheter area. Moving lower extremities without difficulty. Assessment: Acute postoperative pain secondary to Exploratory laparotomy with colostomy reversal LASHA drain placement Plan: Continue epidural infusion solution of Ropivacaine and fentanyl 5 g per ml at the rate of 7mL per hour. We will continue epidural catheter. Tomorrow planning to take the epidural catheter out. Call anesthesia as needed.
[2024-10-26 11:32] LABS: Basophils # (A) 0.05 10*3/uL (0.00-0.10); Basophils % (A) 0.5 %; Eosinophils # (A) 0.17 10*3/uL (0.04-0.35); Eosinophils % (A) 1.7 %; HCT 35.6 % (37.2-46.3); HGB 11.8 g/dL (12.0-15.0); Lymphocytes # (A) 1.69 10*3/uL (0.90-5.00); Lymphocytes % (A) 16.5 %; MCH 27.5 pg (27.0-32.0); MCHC 33.1 g/dL (32.0-37.0); Mean Platelet Volume 9.1 fL (9.5-12.2); Monocytes # (A) 0.89 10*3/uL (0.20-1.00); Monocytes % (A) 8.7 %; Neutrophils % (A) 72.3 %; Platelet Count 257 10*3/uL (140-440); RBC 4.29 10*6/uL (4.10-5.20); WBC 10.23 10*3/uL (4.50-10.00)
[2024-10-26 11:46] LABS: African American GFR (CKD) >90 (>60 ml/min/1.73 sqM); Anion Gap 12 mmol/L; Blood Urea Nitrogen 3 mg/dL (7-17); Calcium 8.8 mg/dL (8.4-10.2); Carbon Dioxide 16 mmol/L (22-30); Chloride 109 mmol/L (98-107); Glucose 80 mg/dL (74-99); Non-African American GFR(CKD) >90 (>60 ml/min/1.73 sqM); Potassium 3.4 mmol/L (3.5-5.1); Sodium 137 mmol/L (137-145)
[2024-10-26] MEDS: PROCHLORPERAZINE INJ 10 MG/2 ML VIAL IVP PRN (12:24)
[2024-10-26] MEDS: ROPIVACAINE 250 MG, fentaNYL (PF) 1,250 MCG in SODIUM CHLORIDE 0.9% 175 ML EPIDURAL PRN (15:44)
[2024-10-26] MEDS: HYDROmorphone 1 MG/ML 1 ML SYRINGE IVP PRN (16:26)
--- NOTE | 2024-10-26 16:34 | P.PN ---
Subjective Patient seen and evaluated at bedside. Patient doing well, pain controlled, denies nausea, vomiting, fevers, chills, no bowel movement at this time. Objective - Vital Signs Vital signs: Vital Signs Temp 98 F 10/26/24 13:44 Pulse 98 10/26/24 13:44 Resp 16 10/26/24 13:44 BP 137/81 10/26/24 13:44 Pulse Ox 98 10/26/24 13:44 FiO2 Intake & Output 10/25/24 10/26/24 10/26/24 18:59 06:59 18:59 Output Total 10 805 Balance -10 -805 Output: Drainage 10 5 Abdomen 5 Vertical Medial Abdomen 10 Urine 800 Other: Voiding Method Indwelling Catheter Indwelling Catheter Indwelling Catheter - Exam gen: nad cv: rrr pul: no labored breathing abd: soft, non distended, non tender to palpation, no guarding or rebound tenderness, surgical incision c/d/i, previous ostomy site appropriately draining - Labs CBC & Chem 7: 10/26/24 11:07 10/26/24 11:07 Labs: Abnormal Lab Results - Last 24 Hours (Table) 10/26/24 10/26/24 Range/Units 11:07 11:07 WBC 10.23 H (4.50-10.00) 10*3/uL Hgb 11.8 L (12.0-15.0) g/dL Hct 35.6 L (37.2-46.3) % MPV 9.1 L (9.5-12.2) fL Potassium 3.4 L (3.5-5.1) mmol/L Chloride 109 H (98-107) mmol/L Carbon Dioxide 16 L (22-30) mmol/L BUN 3 L (7-17) mg/dL Assessment and Plan Assessment: 29 yo female s/p colostomy reversal -continue to monitor pee drain and previous ostomy site -hgb stable -continue clear liquid diet -continue to slowly remove packing -pt taking scd's off, start enoxaparin Time with Patient: Less than 30
[2024-10-26] MEDS: ENOXAPARIN 40 MG/0.4 ML SYRINGE SQ SCH (17:50)
[2024-10-26] MEDS: oxyCODONE-APAP 7.5-325MG 1 EACH TAB PO PRN (17:51)
--- NOTE | 2024-10-26 22:15 | P.PN ---
Progress Note - Text Progress Note Date: 10/26/24 Ms. Bhandari's RN called that epidural is not working, and patient wants to take the epidural out. And would like to continue oral, and IV medication as per primary team orders. Epidural catheter removed intact. Please consult anesthesia as needed. Continue pain management as per primary team.
[2024-10-27 08:45] LABS: Basophils # (A) 0.04 10*3/uL (0.00-0.10); Basophils % (A) 0.6 %; Eosinophils # (A) 0.38 10*3/uL (0.04-0.35); Eosinophils % (A) 5.8 %; HCT 33.4 % (37.2-46.3); Lymphocytes # (A) 1.51 10*3/uL (0.90-5.00); Lymphocytes % (A) 23.2 %; MCH 27.2 pg (27.0-32.0); MCHC 32.9 g/dL (32.0-37.0); MCV 82.5 fL (80.0-97.0); Monocytes # (A) 0.48 10*3/uL (0.20-1.00); Monocytes % (A) 7.4 %; Neutrophils # (A) 4.07 10*3/uL (1.80-7.70); Neutrophils % (A) 62.5 %; Platelet Count 237 10*3/uL (140-440); RBC 4.05 10*6/uL (4.10-5.20); RDW 12.9 % (11.5-14.5); WBC 6.51 10*3/uL (4.50-10.00)
[2024-10-27 09:02] LABS: African American GFR (CKD) >90 (>60 ml/min/1.73 sqM); Anion Gap 7 mmol/L; Blood Urea Nitrogen 3 mg/dL (7-17); Calcium 8.6 mg/dL (8.4-10.2); Carbon Dioxide 21 mmol/L (22-30); Chloride 108 mmol/L (98-107); Glucose 97 mg/dL (74-99); Non-African American GFR(CKD) >90 (>60 ml/min/1.73 sqM); Potassium 3.6 mmol/L (3.5-5.1); Sodium 136 mmol/L (137-145)
--- NOTE | 2024-10-27 12:53 | P.PN ---
Subjective Progress Note Date: 10/27/24 SURGICAL PROGRESS NOTE CHIEF COMPLAINT: Diverticulitis HISTORY OF PRESENT ILLNESS: Patient is postop day #3 status post exploratory laparotomy with colostomy reversal, LASHA drain placement and intraoperative colonoscopy. Patient had epidural discontinued yesterday. She reports her pain is controlled. She is passed a small amount of flatus. She has had some occasional nausea. LASHA drain 60 mL serosanguineous output. Afebrile. WBC is down from 10.2-6.51 Hgb 11 PHYSICAL EXAM: VITAL SIGNS: Reviewed. GENERAL: Well-developed in no acute distress. HEENT: No sclera icterus. Extraocular movements grossly intact. Moist buccal mucosa. Head is atraumatic, normocephalic. ABDOMEN: Soft. Nondistended. Prevena wound VAC in place. Previous ostomy site dressing clean dry and intact LASHA drain serosanguineous output NEUROLOGIC: Alert and oriented. Cranial nerves II through XII grossly intact. ASSESSMENT: 1. Diverticulosis status post colostomy reversal PLAN: - Continue to monitor LASHA drain and previous ostomy site - Continue clear liquid diet - Continue pain management - Discontinue Posey catheter - Encourage patient to increase activity level - DVT prophylaxis Lovenox Physician Lead Oracle Developer note has been reviewed by physician. Signing provider agrees with the documented findings, assessment, and plan of care. Attestation Patient seen and examined at bedside. Doing well. States pain is well- controlled with epidural removal yesterday. She has ambulated. Says she is passing a small amount of flatus. Continue clear liquid diet at this time. Discontinue Posey catheter today. Continue to increase activity. Continue local wound care with removal of packing from the site. Monitor LASHA output. Yosi Domínguez DO Objective - Vital Signs Vital signs: Vital Signs Temp 97.9 F 10/27/24 07:24 Pulse 90 10/27/24 07:24 Resp 17 10/27/24 07:24 BP 116/69 10/27/24 07:24 Pulse Ox 90 L 10/27/24 07:24 FiO2 Intake & Output 10/26/24 10/27/24 10/27/24 18:59 06:59 18:59 Intake Total 1 Output Total 60 2960 200 Balance -60 -1986 -200 Intake: IV 1 Invasive Line 3 1 Output: Drainage 60 60 Vertical Medial Abdomen 60 60 Urine 2900 200 Other: Voiding Method Indwelling Catheter Indwelling Catheter Indwelling Catheter - Labs CBC & Chem 7: 10/27/24 08:34 10/27/24 08:34 Labs: Abnormal Lab Results - Last 24 Hours (Table) 10/27/24 10/27/24 Range/Units 08:34 08:34 RBC 4.05 L (4.10-5.20) 10*6/uL Hgb 11.0 L (12.0-15.0) g/dL Hct 33.4 L (37.2-46.3) % MPV 9.0 L (9.5-12.2) fL Eosinophils # 0.38 H (0.04-0.35) 10*3/uL Sodium 136 L (137-145) mmol/L Chloride 108 H (98-107) mmol/L Carbon Dioxide 21 L (22-30) mmol/L BUN 3 L (7-17) mg/dL
[2024-10-28] MEDS: ALPRAZolam 0.5 MG TAB PO PRN (11:24)
--- NOTE | 2024-10-28 14:52 | P.PN ---
Subjective Progress Note Date: 10/28/24 SURGICAL PROGRESS NOTE CHIEF COMPLAINT: Diverticulitis HISTORY OF PRESENT ILLNESS: Patient is postop day #4 status post exploratory laparotomy with colostomy reversal, LASHA drain placement and intraoperative colonoscopy. Patient reports her pain is controlled. She is having flatus. She does report occasional nausea. Denies any bowel movement. Afebrile. Patient is complaining of anxiety. LASHA drain 40 mL serosanguineous output PHYSICAL EXAM: VITAL SIGNS: Reviewed. GENERAL: Well-developed in no acute distress. HEENT: No sclera icterus. Extraocular movements grossly intact. Moist buccal mucosa. Head is atraumatic, normocephalic. ABDOMEN: Soft. Nondistended. Prevena wound VAC in place. Previous ostomy site clean dry and intact. Some serosanguineous drainage noted on the bandage. LASHA drain serosanguineous NEUROLOGIC: Alert and oriented. Cranial nerves II through XII grossly intact. ASSESSMENT: 1. Diverticulosis status post colostomy reversal PLAN: - Add Xanax 0.5 twice daily as needed for anxiety - 12 inches of iodoform packing removed from old ostomy site. Dressing was r eapplied. - Continue to monitor LASHA drain and previous ostomy site - Advance diet to full liquids - Continue pain management - Encourage patient to increase activity level - DVT prophylaxis Lovenox Physician Straight Knife Machine Cutter note has been reviewed by physician. Signing provider agrees with the documented findings, assessment, and plan of care. Objective - Vital Signs Vital signs: Vital Signs Temp 98.3 F 10/28/24 07:12 Pulse 97 10/28/24 07:12 Resp 18 10/28/24 07:12 BP 126/79 10/28/24 07:12 Pulse Ox 98 10/28/24 07:12 FiO2 Intake & Output 10/27/24 10/28/24 10/28/24 18:59 06:59 18:59 Intake Total 800 Output Total 240 40 Balance 560 -40 Intake: Oral 800 Output: Drainage 40 40 Abdomen 40 Vertical Medial Abdomen 40 Urine 200 Other: Voiding Method Indwelling Catheter Toilet # Voids 2 2 - Labs CBC & Chem 7: 10/27/24 08:34 10/27/24 08:34
[2024-10-29 04:01] LABS: Basophils # (A) 0.03 10*3/uL (0.00-0.10); Basophils % (A) 0.4 %; Eosinophils # (A) 0.36 10*3/uL (0.04-0.35); Eosinophils % (A) 4.6 %; HCT 35.3 % (37.2-46.3); HGB 11.8 g/dL (12.0-15.0); Lymphocytes # (A) 1.87 10*3/uL (0.90-5.00); MCH 27.4 pg (27.0-32.0); MCHC 33.4 g/dL (32.0-37.0); MCV 82.1 fL (80.0-97.0); Mean Platelet Volume 8.9 fL (9.5-12.2); Monocytes % (A) 7.7 %; Neutrophils # (A) 4.91 10*3/uL (1.80-7.70); Neutrophils % (A) 62.9 %; Platelet Count 325 10*3/uL (140-440); RDW 13.1 % (11.5-14.5)
[2024-10-29 04:51] LABS: African American GFR (CKD) >90 (>60 ml/min/1.73 sqM); Anion Gap 12 mmol/L; Blood Urea Nitrogen 4 mg/dL (7-17); Calcium 9.6 mg/dL (8.4-10.2); Carbon Dioxide 22 mmol/L (22-30); Chloride 103 mmol/L (98-107); Glucose 91 mg/dL (74-99); Non-African American GFR(CKD) >90 (>60 ml/min/1.73 sqM); Potassium 3.7 mmol/L (3.5-5.1); Sodium 137 mmol/L (137-145)
[2024-10-29] MEDS: METOCLOPRAMIDE 5 MG/ML 2 ML VIAL IVP PRN (11:46)
--- NOTE | 2024-10-29 14:21 | P.PN ---
Subjective Progress Note Date: 10/29/24 SURGICAL PROGRESS NOTE CHIEF COMPLAINT: Diverticulitis HISTORY OF PRESENT ILLNESS: Patient is postop day #5 status post exploratory laparotomy with colostomy reversal, LASHA drain placement and intraoperative colonoscopy. Patient reports her pain is controlled. She does report occasional nausea. She is having flatus. Denies any bowel movement. LASHA drain 60 mL serosanguineous output yesterday. Patient reports that Xanax did help with her anxiety. WBC 7.8 Hgb 11.8 PHYSICAL EXAM: VITAL SIGNS: Reviewed. GENERAL: Well-developed in no acute distress. HEENT: No sclera icterus. Extraocular movements grossly intact. Moist buccal mucosa. Head is atraumatic, normocephalic. ABDOMEN: Soft. Nondistended. Prevena wound VAC in place. Previous ostomy site clean dry and intact. Some serosanguineous drainage noted on the bandage. LASHA drain serosanguineous NEUROLOGIC: Alert and oriented. Cranial nerves II through XII grossly intact. ASSESSMENT: 1. Diverticulosis status post colostomy reversal PLAN: -Continue full liquid diet -Add Senokot twice a day to help with bowel activity -Removed 12 inches of iodoform packing from old ostomy site -Encourage patient to ambulate -Encourage patient to use incentive spirometer -Continue pain management -Continue to monitor output from LASHA drain -Add Ensure for protein supplement - DVT prophylaxis Lovenox Physician Motel Clerk note has been reviewed by physician. Signing provider agrees with the documented findings, assessment, and plan of care. Attestation Postoperative day #5, colostomy reversal. Patient has been doing well. Continues to have flatus. Denies bowel movement. LASHA drain with serosanguineous output. Slight tachycardia today. No leukocytosis. Will advance to full liquid diet. Senokot added as well. Removed some packing from ostomy site and will continue to remove every day. Added Ensure for protein supplement. Progr essing slowly. Shilpin Domínguez, DO Objective - Vital Signs Vital signs: Vital Signs Temp 98.2 F 10/29/24 13:49 Pulse 108 H 10/29/24 13:49 Resp 16 10/29/24 13:49 BP 109/68 10/29/24 13:49 Pulse Ox 99 10/29/24 13:49 FiO2 Intake & Output 10/28/24 10/29/24 10/29/24 18:59 06:59 18:59 Intake Total 1040 Output Total 60 Balance 980 Intake: Intake, IV Titration 1040 Amount Sodium Chloride 0.9% 1, 1040 000 ml @ 130 mls/hr IV . [id number] [facility] Rx#:[id number] Output: Drainage 60 Abdomen 40 Vertical Medial Abdomen 20 Other: # Voids 2 - Labs CBC & Chem 7: 10/29/24 03:25 10/29/24 03:25 Labs: Abnormal Lab Results - Last 24 Hours (Table) 10/29/24 10/29/24 Range/Units 03:25 03:25 Hgb 11.8 L (12.0-15.0) g/dL Hct 35.3 L (37.2-46.3) % MPV 8.9 L (9.5-12.2) fL Eosinophils # 0.36 H (0.04-0.35) 10*3/uL BUN 4 L (7-17) mg/dL Creatinine 0.48 L (0.52-1.04) mg/dL
[2024-10-29] MEDS: SENNOSIDES 8.6 MG TAB PO SCH (20:26)
[2024-10-30 08:49] LABS: Basophils # (A) 0.03 X 10*3/uL (0.00-0.10); Basophils % (A) 0.5 %; Eosinophils # (A) 0.27 X 10*3/uL (0.04-0.35); Eosinophils % (A) 4.6 %; HCT 34.9 % (37.2-46.3); HGB 11.5 g/dL (12.0-15.0); Lymphocytes # (A) 1.39 X 10*3/uL (0.90-5.00); Lymphocytes % (A) 23.8 %; MCH 27.3 pg (27.0-32.0); MCV 82.9 FL (80.0-97.0); Mean Platelet Volume 9.3 FL (9.5-12.2); Monocytes # (A) 0.51 X 10*3/uL (0.20-1.00); Monocytes % (A) 8.7 %; NRBC Per 100 WBC 0 X 10*3/uL (0.00-0.01); Neutrophils # (A) 3.63 X 10*3/uL (1.80-7.70); Neutrophils % (A) 62.1 %; Platelet Count 295 X 10*3/uL (140-440); RBC 4.21 X 10*6/uL (4.10-5.20); RDW 13.1 % (11.5-14.5); WBC 5.85 X 10*3/uL (4.50-10.00)
[2024-10-30 09:14] LABS: ALT 15 U/L (8-44); AST 16 U/L (13-35); Albumin 3.6 g/dL (3.8-4.9); Albumin/Globulin Ratio 1.44 Ratio (1.60-3.17); Alkaline Phosphatase 67 U/L (41-126); Blood Urea Nitrogen 7.7 mg/dL (9.0-27.0); Carbon Dioxide 23.7 mmol/L (21.6-31.8); Chloride 104 mmol/L (96-109); Globulin 2.5 g/dL (1.6-3.3); Glucose 94 mg/dL (70-110); Potassium 3.9 mmol/L (3.5-5.5); Sodium 139 mmol/L (135-145); Total Bilirubin 0.3 mg/dL (0.3-1.2); Total Protein 6.1 g/dL (6.2-8.2)
--- NOTE | 2024-10-30 13:28 | P.PN ---
Subjective Progress Note Date: 10/30/24 SURGICAL PROGRESS NOTE CHIEF COMPLAINT: Diverticulitis HISTORY OF PRESENT ILLNESS: Patient is postop day #6 status post exploratory laparotomy with colostomy reversal, LASHA drain placement and intraoperative colonoscopy. Patient reports her pain continues to improve. She is still requiring the IV Dilaudid intermittently. She is having flatus. No bowel movement yet. She has had nausea. No vomiting. She is tolerating the full liquids. Afebrile. Mildly tachycardia improved. WBC 5.85 Hgb 11.5. LASHA drain 20 mL serosanguineous output PHYSICAL EXAM: VITAL SIGNS: Reviewed. GENERAL: Well-developed in no acute distress. HEENT: No sclera icterus. Extraocular movements grossly intact. Moist buccal mucosa. Head is atraumatic, normocephalic. ABDOMEN: Soft. Nondistended. Prevena wound VAC in place. Previous ostomy site clean dry and intact. Some serosanguineous drainage noted on the bandage. LASHA drain serosanguineous NEUROLOGIC: Alert and oriented. Cranial nerves II through XII grossly intact. ASSESSMENT: 1. Diverticulosis status post colostomy reversal 2. Anxiety is likely contributed patient's tachycardia PLAN: -Anticipate possible discharge tomorrow -Will plan to remove Prevena wound VAC tomorrow -Removed another 12 inches of iodoform packing from old ostomy site -Plan to remove the rest of the packing tomorrow prior to discharge -Continue full liquid diet -Continue Senokot -Encourage patient to ambulate -Encourage patient to use incentive spirometer -Continue pain management -Continue to monitor output from LASHA drain -Continue Ensure -DVT prophylaxis Lovenox Physician Backup Administrator note has been reviewed by physician. Signing provider agrees with the documented findings, assessment, and plan of care. Objective - Vital Signs Vital signs: Vital Signs Temp 98.1 F 10/30/24 13:16 Pulse 95 10/30/24 13:16 Resp 16 10/30/24 13:16 BP 133/83 10/30/24 13:16 Pulse Ox 97 10/30/24 13:16 FiO2 Intake & Output 10/29/24 10/30/24 10/30/24 18:59 06:59 18:59 Output Total 200 20 Balance -200 -20 Output: Drainage 20 Vertical Medial Abdomen 20 Urine 200 Other: Voiding Method Toilet # Voids 2 1 - Labs CBC & Chem 7: 10/30/24 02:49 10/30/24 02:49 Labs: Abnormal Lab Results - Last 24 Hours (Table) 10/30/24 10/30/24 Range/Units 02:49 02:49 Hgb 11.5 L (12.0-15.0) g/dL Hct 34.9 L (37.2-46.3) % MPV 9.3 L (9.5-12.2) FL BUN 7.7 L (9.0-27.0) mg/dL Creatinine 0.5 L (0.6-1.5) mg/dL Total Protein 6.1 L (6.2-8.2) g/dL Albumin 3.6 L (3.8-4.9) g/dL Albumin/Globulin Ratio 1.44 L (1.60-3.17) Ratio
[2024-10-30 14:57] VITALS: BMI 34.2
[2024-10-31 02:06] VITALS: RESP 16
--- NOTE | 2024-10-31 12:51 | P.DS ---
Providers Date of admission: 10/24/24 10:13 Expected date of discharge: 10/31/24 Attending physician: Yossi Bowling DO Primary care physician: Cynthia Agarwal Hospital Course: Discharge diagnosis 1. Diverticulosis status post colostomy reversal 2. Anxiety is likely contributed patient's tachycardia Hospital course This is a 29-year-old female with a known history of perforated diverticulosis status post colostomy reversal. Patient is tolerating diet. Her pain is controlled. She has been up and ambulating. She is having flatus. Nursing staff did chart a bowel movement. She is afebrile. She is stable for discharge. Please refer to chart for any further details. Physician Form Designer note has been reviewed by physician. Signing provider agrees with the documented findings, assessment, and plan of care. Attestation Patient seen and examined at bedside. Postoperative from colostomy reversal. Patient is doing well. Ambulating the hallways. Having flatus. Tolerating diet. Does have baseline of anxiety. Surgically stable for discharge. Follow- up as outpatient. LASHA drain to be removed in the office. Yosi Domínguez DO Patient Condition at Discharge: Stable Plan - Discharge Summary Discharge Rx Participant: No New Discharge Prescriptions: New Ondansetron Odt [Zofran Odt] 4 mg PO Q8HR PRN #9 tab PRN Reason: Nausea Docusate [Colace] 100 mg PO BID #30 capsule oxyCODONE-APAP 7.5-325MG [Percocet 7.5-325 mg] 1 tab PO Q6HR PRN 3 Days #12 tab PRN Reason: Pain Continue ALPRAZolam [Xanax] 1 tab PO DAILY PRN PRN Reason: Anxiety Neomycin 500 mg PO DIRECTED Discontinued Ondansetron Odt [Zofran ODT] 4 mg PO Q8HR PRN #9 tab PRN Reason: Nausea Acetaminophen Tab [Tylenol] 1,000 mg PO Q6HR PRN #0 tab PRN Reason: Pain Discharge Medication List ALPRAZolam [Xanax] 1 tab PO DAILY PRN 10/21/24 [History] Neomycin 500 mg PO DIRECTED 10/21/24 [History] Docusate [Colace] 100 mg PO BID #30 capsule 10/31/24 [Rx] Ondansetron Odt [Zofran Odt] 4 mg PO Q8HR PRN #9 tab 10/31/24 [Rx] oxyCODONE-APAP 7.5-325MG [Percocet 7.5-325 mg] 1 tab PO Q6HR PRN 3 Days #12 tab 10/31/24 [Rx] Follow up Appointment(s)/Referral(s): Yossi Bowling DO [Doctor of Osteopathic Medicine] - 11/04/24 Activity/Diet/Wound Care/Special Instructions: No driving while taking Percocet No lifting over 10 pounds You may shower. No soaking or tub baths for 2 weeks Very light activity until you are reevaluated at your follow up appointment with your surgeon Keep a log of LASHA drain output and bring with you to your follow-up appointment Milk/strip drains 2-3 times a day Bring Prevena wound VAC system to appointment on November [address] Kee Continue a full liquid diet and advance to soft diet as tolerated Discharge Disposition: HOME SELF-CARE
[2024-10-31 13:42] VITALS: BP 123/88; PULSE 111; TEMP 98.3
== END 2024-10-31 14:45 | disposition home or self-care (01) | DRG 331 ==
LOC: 2ORMAIN 10:13 → 4SSUR 16:37
PROVIDERS: ADMIT Surgery; ATTEND Surgery
PROC: 0DJD8ZZ Inspection of Lower Intestinal Tract, Via Natural or Artificial Opening Endoscopic (ICD-10-PCS; 2024-10-24)
PROC: 0DQM0ZZ Repair Descending Colon, Open Approach (ICD-10-PCS; principal; 2024-10-24 12:00)
DX: Z43.3 Encounter for attention to colostomy (principal); F41.9 Anxiety disorder, unspecified
CPT/HCPCS: 80048; 80053; 81025; 85025; 88304; 94760